=== PATIENT | female | born 1940 | race Caucasian/White ===

== ENCOUNTER 2017-10-22 15:15 | Inpatient (IN) | payer MEDICARE, OTHER, SELFPAY ==
[2017-10-22] VITALS (7 sets, daily range): BP systolic 108–181; BP diastolic 63–85; PULSE 78–101; RESP 16–22; TEMP 36.7–36.9; O2SAT 94–96; BMI 31.8
--- NOTE | 2017-10-22 15:32 | RAD_ITS ---
STUDY: X-RAY CHEST REASON FOR EXAM: Female, 76 years old. Chemotherapy patient with shortness of breath, worse today. TECHNIQUE: Frontal and lateral views of the chest. COMPARISON: August 29, 2017 FINDINGS: A right internal jugular catheter is stable with the tip projected into the upper SVC. There is stable hyperexpansion. There is no demonstrated pleural abnormality. Normal size heart. Normal mediastinum and stanley. Normal visualized pulmonary arteries. Normal visualized aortic arch and descending thoracic aorta. Normal visualized thoracic spine. Normal visualized ribs, clavicles, and shoulders. There is no demonstrated abnormality of the visualized soft tissue structures of the upper abdomen. RAD/Chest PA and Lateral IMPRESSION: Stable appearance of the chest with no new or acute pathology Electronically Signed: Hugh Palmer MD at 16:07 EST , Service support ,
--- NOTE | 2017-10-22 16:00 | EKG12_ITS ---
Test Reason : WEAKNESS Blood Pressure : / mmHG Vent. Rate : 087 BPM Atrial Rate : 087 BPM P-R Int : 164 ms QRS Dur : 082 ms QT Int : 370 ms P-R-T Axes : 000 058 063 degrees QTc Int : 445 ms Normal sinus rhythm Normal ECG Confirmed by SRAVANTHI TORIBIO, ROWDY ([id number]), associate editor ELIN TORIBIO ([id number]) on 10/24/2017 10:52:29 AM Referred By: HEATHER Confirmed By:ROWDY FISHMAN MD
--- NOTE | 2017-10-22 16:14 | ED.DCSUM_ITS ---
- ER Visit Summary Date of Service: 10/22/17 Chief Complaint: Generalized weakness History of Present Illness: The patient is a 76 F currently undergoing treatment for ovarian cancer with metastasis who presents for generalized weakness since yesterday. Patient states that she began feeling malaise and fatigue last night, and this morning felt so weak she could hardly get out of bed. Her last chemotherapy treatment was Monday, and she is receiving carboplatin and Taxol. Patient denies fever, abdominal pain, nausea, vomiting, diarrhea or urinary symptoms. She does have some dyspnea on exertion. She has chronic sinus congestion with postnasal drainage and sore throat, and states it feels mildly worse today. Patient states 2 weeks ago after chemo she needed IV fluids because of dehydration and weakness. Medical history includes chronic kidney disease, atrial flutter, ovarian cancer , status post colectomy with colostomy Physical Examination: Vital signs: afebrile, normotensive, tachycardia, no hypoxia on room air General: well nourished, well developed, in no distress, appears like she does not feel well Skin: warm, dry, pallor HEENT: normocephalic and atraumatic; PERRL, EOMI, dry mucous membranes, no oral lesions noted Cardiovascular: Tachycardic rate and regular rhythm without murmurs, no peripheral edema, 2+ pulses all distal extremities Respiratory: No increased work of breathing, lungs are clear to auscultation bilaterally, no rales, rhonchi or wheezing Abdominal: Abdomen is soft, nontender with normoactive bowel sounds, no guarding or rebound, no masses, colostomy MSK: Moves all extremities, no deformities, no calf tenderness, swelling or palpable cords Neuro: Awake and alert, oriented ?4. No facial droop, sensation and motor function intact and symmetric Test Results: Abnormal Lab Results 10/22/17 10/22/17 10/22/17 16:10 16:10 16:10 WBC 2.6 L RBC 3.88 L Hgb 10.3 L Hct 32.3 L MCV 83.2 MCH 26.5 L MCHC 31.9 L RDW Not Reportable RDW Differential Not Reportable Plt Count 258 MPV 9.3 Immature Gran % (Auto) 0.400 Neut % (Auto) 63.2 Lymph % (Auto) 31.1 [place] % (Auto) 3.4 Eos % (Auto) 1.5 Baso % (Auto) 0.4 Absolute Neuts (auto) 1.7 L Absolute Lymphs (auto) 0.82 L Total Counted Not Reportable Anisocytosis 1+ PT 13.3 INR 1.1 APTT 33.2 Sodium Potassium Chloride Carbon Dioxide Anion Gap BUN Creatinine Estim Creat Clear Calc Est GFR (MDRD) Af Amer Est GFR (MDRD) Non-Af BUN/Creatinine Ratio Glucose Lactic Acid 1.0 Calcium Total Bilirubin AST ALT Alkaline Phosphatase Troponin I Total Protein Albumin Globulin Albumin/Globulin Ratio Urine Color Urine Clarity Urine pH Ur Specific [place] Urine Protein Urine Glucose (UA) Urine Ketones Urine Occult Blood Urine Nitrite Urine Bilirubin Urine Urobilinogen Ur Leukocyte Esterase Urine RBC Urine WBC Ur Squamous Epith Cells Ur Renal Epithelial Cell Urine Bacteria Urine Mucus 10/22/17 10/22/17 16:10 17:50 WBC RBC Hgb Hct MCV MCH MCHC RDW RDW Differential Plt Count MPV Immature Gran % (Auto) Neut % (Auto) Lymph % (Auto) [place] % (Auto) Eos % (Auto) Baso % (Auto) Absolute Neuts (auto) Absolute Lymphs (auto) Total Counted Anisocytosis PT INR APTT Sodium 134 L Potassium 3.7 Chloride 99 Carbon Dioxide 25.0 Anion Gap 10 BUN 26 H Creatinine 0.97 Estim Creat Clear Calc 43.70 Est GFR (MDRD) Af Amer 72 Est GFR (MDRD) Non-Af 59 L BUN/Creatinine Ratio 26.8 H Glucose 126 H Lactic Acid Calcium 8.6 Total Bilirubin 0.70 AST 29 ALT 24 Alkaline Phosphatase 60 Troponin I < 0.02 Total Protein 7.3 Albumin 3.4 Globulin 3.9 Albumin/Globulin Ratio 0.9 Urine Color Yellow Urine Clarity Clear Urine pH 6.0 Ur Specific [place] 1.010 Urine Protein 100 H Urine Glucose (UA) Normal Urine Ketones Negative Urine Occult Blood 50 H Urine Nitrite Negative Urine Bilirubin Negative Urine Urobilinogen Normal Ur Leukocyte Esterase 100 H Urine RBC 0 SEEN Urine WBC 0-5 SEEN Ur Squamous Epith Cells 0-5 SEEN Ur Renal Epithelial Cell 0-5 SEEN Urine Bacteria 0 SEEN Urine Mucus 0 SEEN Emergency Department Course and Treatment: Patient was given IV hydration and felt better after receiving some fluids. Workup for possible infection showed low white count but not leukopenia. Urine was negative for infection. Chest x- ray showed no pneumonia. No significant derangements other than mild dehydration on labs. Patient had stated her shortness of breath was no longer present when she walked to the bathroom after the initial hydration. However she stated it returned after she walked to the bathroom the second time. Because of the mild shortness of breath and the cancer history, a CTA of the chest was performed to evaluate for possible pulmonary emboli, and it showed bilateral PEs. Patient was started on lovenox. Patient was discussed with Dr. Oliveira and admitted for further workup and management of her generalized weakness and bilateral pulmonary emboli. Treatment Plan: [] Disposition: [] Impression: Generalized weakness, dehydration, bilateral pulmonary emboli This note was generated with [employer] dictation software. It may contain incorrect words, spelling, and punctuation that were not noted in review of the chart prior to signing ED Disposition - Plan for ED Patient: Chief Complaint: Weakness
[2017-10-22 16:28] LABS: Absolute Lymphocyte Count 0.82 X10^3/ul (0.83-4.51); Absolute Neutrophil Count 1.7 X10^3/uL (2.0-7.7); Basophil# 0.01 X10^3/uL; Basophil% 0.4 % (0-1); Eosinophil# 0.04 X10^3/uL; Eosinophils% 1.5 % (0-5); Hematocrit 32.3 % (37-47); Hemoglobin 10.3 g/dl (12.0-15.0); Lymphocyte # 0.82 X10^3/ul (4.0); Lymphocyte % 31.1 % (19-41); Mean Corp Hgb Conc 31.9 g/gl (32-36); Mean Corpuscular Hgb 26.5 pg (27.0-32.0); Mean Corpuscular Volume 83.2 fL (81-99); Mean Platelet Vol. 9.3 fl (6.2-12.0); Monocyte# 0.09 X10^3/uL; Monocyte% 3.4 % (0-10); Neutrophil # 1.67 X10^3/uL (2.7-7.7); Neutrophil % 63.2 % (47-70); Platelet Count 258 K/mm3 (150-450); Red Blood Count 3.88 M/mm3 (4.2-5.4); White Blood Count 2.6 K/mm3 (4.4-11.0)
[2017-10-22 16:30] LABS: International Normalized Ratio 1.1; Prothrombin Time (Protime)PT. 13.3 SECONDS (11.7-14.9)
[2017-10-22 16:31] LABS: POSITIVE DIFFERENTIAL NO; Partial Thromboplast Time 33.2 Seconds (24.1-36.2)
[2017-10-22 16:32] LABS: Differential Indicated SCAN CRITERIA MET; POSITIVE COUNT NO; POSITIVE MORPHOLOGY YES
[2017-10-22 16:51] LABS: ALB/GLOB Ratio 0.9 RATIO (0.9-2.4); AST(SGOT) 29 U/L (15-37); Alanine Aminotransfer ALT/SGPT 24 U/L (13-56); Albumin, Serum 3.4 g/dL (3.2-5.0); Alkaline Phosphatase 60 U/L (45-117); Anion Gap 10 (5-15); BUN 26 mg/dL (7-18); BUN/Creat Ratio 26.8 RATIO (10-20); Calcium,Total 8.6 mg/dL (8.5-10.1); Chloride 99 mmol/L (98-107); Creatinine, Serum 0.97 mg/dL (0.55-1.02); EST Glomerular Filtration Rate 59 mL/min (>60); Est Glom Filt Rate - Afr Amer 72 mL/min (>60); Globulin 3.9 g/dL (2.2-4.2); Glucose 126 mg/dL (70-110); Potassium 3.7 mmol/L (3.5-5.1); Protein, Total 7.3 g/dL (6.4-8.2); Sodium Level 134 mmol/L (136-145)
[2017-10-22] MEDS: 0.9% Normal Saline 1,000 ML 50 ML IV (17:04)
[2017-10-22 17:31] LABS: Anisocytosis 1+
[2017-10-22 17:54] LABS: Bacteria 0 SEEN /hpf (None Seen); Mucous, Urine 0 SEEN /hpf (<or=2+); Red Blood Cells-Urine 0 SEEN /hpf (0-5)
[2017-10-22 17:56] LABS: Color, Urine Yellow (Yellow); Glucose, Dipstick Normal (Normal); Ketone-Dipstick Negative (Negative); Leukocyte Esterase-Dipstick 100 /ul (Negative); Nitrite-Dipstick Negative (Negative); Occult Blood-Urine 50 /ul (Negative); Protein-Dipstick 100 mg/dl (Negative); Urine Bilirubin Dipstick Negative (Negative); Urine Clarity Clear (Clear); Urine Urobilinogen Normal (Normal)
[2017-10-22 18:01] LABS: Renal Epithelial Cells 0-5 SEEN /hpf (0-5); Squamous Epithelial Cells - UA 0-5 SEEN /hpf (5-10); White Blood Cells 0-5 SEEN /hpf (0-5)
[2017-10-22] MEDS: 0.9% Normal Saline 1,000 ML 999 ML IV (19:00)
--- NOTE | 2017-10-22 20:45 | CT_ITS ---
STUDY: CTA CHEST REASON FOR EXAM: Female, 76 years old. Chemotherapy patient. Shortness of breath. RADIATION DOSAGE (If Supplied By Facility): CTDIvol = ( 11.03 ) mGy, DLP = ( 409.25 ) mGycm TECHNIQUE: The examination was performed with the intravenous administration of 75ML ml of Isovue 370 contrast material. Post-processing of the angiographic images was performed, with multiplanar reformation and 3D reconstruction. Individualized dose optimization techniques were used for this CT. COMPARISON: None. FINDINGS: There are filling defects noted within segmental pulmonary arteries extending into all the lobes of each lung consistent with bilateral pulmonary emboli. There are peripheral calcifications of the thoracic aorta. There is no demonstrated aortic dissection. There are calcifications of the coronary arteries. Normal mediastinum. Normal hilar regions. Normal visualized trachea and bronchi. There is minimal right lower lobe atelectasis.. There is a Mediport within the anterior right chest wall. There are degenerative changes of thoracic spine. Within the spinous process of T3 there is a oblique lucency at may be secondary to an old injury this may be congenital in nature. Normal visualized upper abdomen. CT/CTA Chest W/WO Contrast IMPRESSION: Bilateral pulmonary emboli. Minimal right lower lobe atelectasis. Atherosclerosis. Electronically Signed: Sonia Cortez MD at 22:05 EST Tel , Service support ,
[2017-10-22] MEDS: Carvedilol 12.5 MG Tablet PO (21:45)
[2017-10-22] MEDS: Lisinopril 20 MG Tablet PO (21:45)
[2017-10-22] MEDS: Enoxaparin 100 MG/ML Syringe 90 MG SC (22:55)
--- NOTE | 2017-10-22 23:13 | PCM.HP.STD ---
Problem List (1) Pulmonary embolism, bilateral Status: Acute (2) Diarrhea Status: Acute Qualifiers: Diarrhea type: unspecified type Qualified Code(s): R19.7 - Diarrhea, unspecified (3) Drug induced neutropenia Status: Acute (4) Educational circumstance Status: Acute (5) Hypomagnesemia Status: Acute (6) Ovarian epithelial cancer Status: Chronic Qualifiers: Laterality: unspecified laterality Qualified Code(s): C56.9 - Malignant neoplasm of unspecified ovary History of Present Illness Date of Admission: 10/22/17 Chief Complaint: Bilateral pulmonary embolism The patient is a 76 year old female w/ h/o ovarian cancer, HTN, and drug induced neutropenia admitted bilateral PE. She has been SOB since yesterday. Nothing made it better or worse. She has no cough. SOB is constant. She also has been feeling weak since receiving carboplatin and taxol on Monday. Fatigue was so severe that she had a hard time getting out of bed. Her physician advised her to go to the ED for further workup. Past Medical History Past Medical History (Chronic Problems): Chronic Problems (Last Reviewed 09/27/17 @ 09:58 by Joaquina Richardson) Ovarian epithelial cancer (Chronic) Allergies Penicillins Allergy (Severe, Verified 10/22/17 15:18) Hives Sulfa (Sulfonamide Antibiotics) Adverse Reaction (Severe, Verified 10/22/17 15:18) Nausea/Vom/Diarrhea Home Medications: Ambulatory Orders Medication Instructions Recorded Carvedilol [Coreg] 12.5 mg PO BID 06/17/17 Enalapril Maleate [Vasotec] 20 mg PO BID 06/17/17 Ketorolac Tromethamine [Acular LS] 1 drp EACH EYE DAILY 06/17/17 Levothyroxine [Synthroid] 75 mcg PO DAILY 06/17/17 Omeprazole/Sodium Bicarbonate 20 each PO DAILY 08/28/17 [Zegerid Otc 20-1,100 mg Cap] Chlorpheniramine Maleate 4 mg PO DAILY 09/06/17 [Aller-Chlor] Smoking Status: Never smoker - *Family History Maternal Family History: Family History (Last Reviewed 09/27/17 @ 09:58 by Joaquina Richardson) Mother Colon cancer Heart disease Hypertension Father Kidney disease Review of Systems Constitutional: Reports: Malaise, Weakness. Denies: Chills, Fever, Weight Change HEENT: Denies: Head Aches, Sinus Congestion, Sinus Drainage Cardiovascular: Denies: Chest Pain, Palpitations Respiratory: Reports: Shortness of Breath, Shortness of breath at rest. Denies: Cough, Sputum production Gastrointestinal: Denies: Abdominal Pain, Nausea, Vomiting Genitourinary: Denies: Dysuria Musculoskeletal: Denies: Joint Pain, Joint Tenderness Skin: Denies: Rash, Wounds Neurological: Denies: Numbness, Tingling, Focal weakness Psychiatric: Denies: Anxiety, Depression, Homicidal Ideations, Suicidal Ideations Hematologic/ Lymphatic: Denies: Easy Bruising, Easy Bleeding VTE Information - Inpt Only VTE Present on Admission: No VTE Mechan Device Prophylaxis: SCD's VTE Pharm Prophylaxis ordered?: Yes Patient Problems: Active and Suspected Problems (Last Reviewed 09/27/17 @ 09:58 by Joaquina Richardson) Pulmonary embolism, bilateral (Acute) - Physical Exam General: Alert, Oriented x3, Cooperative HEENT: Atraumatic, PERRLA, EOMI, Normocephalic Neck: Supple, No JVD, Negative Carotid Bruits Lungs: Clear to auscultation, Normal air movement Cardiovascular: Regular rate, No murmurs Abdomen: Bowel Sounds Present, Soft, Non Tender Extremities: No edema, Capillary Refill Less than 3 Seconds Skin: No rashes, No breakdown Musculoskeletal: No Tenderness to Palpation of Joints or Extremities Neurological: Cranial nerves II-XII grossly intact Psych/Mental Status: Normal Affect, Appropriate Vital Signs Temp Pulse Resp BP Pulse Ox 98.0 F 82 18 128/63 H 94 10/22/17 20:33 10/22/17 22:58 10/22/17 22:58 10/22/17 22:58 10/22/17 22:58 Oxygen Delivery Method Room Air Weight: 86.727 kg Body Mass Index (BMI) 31.8 Laboratory Tests Past 24 Hrs 10/22/17 10/22/17 10/22/17 16:10 16:10 16:10 WBC 2.6 L RBC 3.88 L Hgb 10.3 L Hct 32.3 L MCV 83.2 MCH 26.5 L MCHC 31.9 L RDW Not Reportable RDW Differential Not Reportable Plt Count 258 MPV 9.3 Immature Gran % (Auto) 0.400 Neut % (Auto) 63.2 Lymph % (Auto) 31.1 [place] % (Auto) 3.4 Eos % (Auto) 1.5 Baso % (Auto) 0.4 Absolute Neuts (auto) 1.7 L Absolute Lymphs (auto) 0.82 L Total Counted Not Reportable Anisocytosis 1+ PT 13.3 INR 1.1 APTT 33.2 Sodium Potassium Chloride Carbon Dioxide Anion Gap BUN Creatinine Estim Creat Clear Calc Est GFR (MDRD) Af Amer Est GFR (MDRD) Non-Af BUN/Creatinine Ratio Glucose Lactic Acid 1.0 Calcium Total Bilirubin AST ALT Alkaline Phosphatase Troponin I Total Protein Albumin Globulin Albumin/Globulin Ratio Urine Color Urine Clarity Urine pH Ur Specific [place] Urine Protein Urine Glucose (UA) Urine Ketones Urine Occult Blood Urine Nitrite Urine Bilirubin Urine Urobilinogen Ur Leukocyte Esterase Urine RBC Urine WBC Ur Squamous Epith Cells Ur Renal Epithelial Cell Urine Bacteria Urine Mucus 10/22/17 10/22/17 16:10 17:50 WBC RBC Hgb Hct MCV MCH MCHC RDW RDW Differential Plt Count MPV Immature Gran % (Auto) Neut % (Auto) Lymph % (Auto) [place] % (Auto) Eos % (Auto) Baso % (Auto) Absolute Neuts (auto) Absolute Lymphs (auto) Total Counted Anisocytosis PT INR APTT Sodium 134 L Potassium 3.7 Chloride 99 Carbon Dioxide 25.0 Anion Gap 10 BUN 26 H Creatinine 0.97 Estim Creat Clear Calc 43.70 Est GFR (MDRD) Af Amer 72 Est GFR (MDRD) Non-Af 59 L BUN/Creatinine Ratio 26.8 H Glucose 126 H Lactic Acid Calcium 8.6 Total Bilirubin 0.70 AST 29 ALT 24 Alkaline Phosphatase 60 Troponin I < 0.02 Total Protein 7.3 Albumin 3.4 Globulin 3.9 Albumin/Globulin Ratio 0.9 Urine Color Yellow Urine Clarity Clear Urine pH 6.0 Ur Specific [place] 1.010 Urine Protein 100 H Urine Glucose (UA) Normal Urine Ketones Negative Urine Occult Blood 50 H Urine Nitrite Negative Urine Bilirubin Negative Urine Urobilinogen Normal Ur Leukocyte Esterase 100 H Urine RBC 0 SEEN Urine WBC 0-5 SEEN Ur Squamous Epith Cells 0-5 SEEN Ur Renal Epithelial Cell 0-5 SEEN Urine Bacteria 0 SEEN Urine Mucus 0 SEEN Assessment/Plan Active and Suspected Problems (Last Reviewed 09/27/17 @ 09:58 by Joaquina Richardson) Pulmonary embolism, bilateral (Acute) 76 year old female w/ h/o ovarian cancer, HTN, and drug induced neutropenia admitted bilateral PE. 1) Bilateral PE: CT disclosed filling defects within segmental pulmonary arteries extending into all the lobes of each lung consistent with bilateral pulmonary emboli. C/w lovenox BID dosing. Most likely secondary to ovarian cancer. Will get ECHO to evaluate for heart strain. 2) Drug induced pancytopenia: Most likely secondary to carboplatin and taxol. Monitor. 3) Ovarian cancer s/p carboplatin and taxol. Hydration. No e/o kidney injury for carboplatin. Monitor. 4) Chronic issues: HTN: Resume home meds.
[2017-10-23] VITALS (17 sets, daily range): BP systolic 111–183; BP diastolic 55–75; PULSE 64–89; RESP 15–20; TEMP 36.4–36.9; O2SAT 87–98; BMI 30.8
[2017-10-23] MEDS: 0.9% Normal Saline 1,000 ML 100 ML IV (01:07)
[2017-10-23] MEDS: 0.9% NaCl Peripheral Flush Adult/Peds IV (04:58)
[2017-10-23 05:38] LABS: Anion Gap 10 (5-15); BUN 22 mg/dL (7-18); BUN/Creat Ratio 25.9 RATIO (10-20); Calcium,Total 8.6 mg/dL (8.5-10.1); Chloride 104 mmol/L (98-107); Creatinine, Serum 0.85 mg/dL (0.55-1.02); EST Glomerular Filtration Rate 69 mL/min (>60); Est Glom Filt Rate - Afr Amer 83 mL/min (>60); Estimated Creatinine Clearance 49.87 ml/min; Glucose 114 mg/dL (70-110); Potassium 3.9 mmol/L (3.5-5.1); Sodium Level 138 mmol/L (136-145)
--- NOTE | 2017-10-23 05:55 | VDLE_ITS ---
Reason For Study: PULM EMB RIGHT LEFT GSV is normal. GSV is normal. CFV is compressible, spontaneous, phasic, CFV is compressible, spontaneous, phasic, competent and demonstrates normal competent, and demonstrates normal augmentation. augmentation. FV is compressible, spontaneous, phasic, FV is compressible, spontaneous, phasic, competent and demonstrates normal competent and demonstrates normal augmentation. augmentation. POP V is compressible, spontaneous, phasic, Left POP V, T/P Trunk, PTV and PeroV are competent and demonstrates normal dilated and noncompressible. augmentation. DVT at Pop V space appears loosely attached. T/P Trunk is compressible. PTV is compressible. RT PerV is compressible. Procedure Exam performed portable in patient room. A preliminary report was called and/or faxed to [facility]. Interpretation Summary Acute deep vein thrombosis is noted in the left popliteal vein. Acute deep vein thrombosis is noted in the left tibio-peroneal trunk. Acute deep vein thrombosis is noted in the left posterior tibial vein. Acute deep vein thrombosis is noted in the left peroneal vein. The left common femoral vein and femoral vein are patent, compressible, and competent. Deep veins of the right lower extremity are patent and compressible segmentally. There is no evidence of right lower extremity deep vein thrombosis. Valvular competence appears intact within the proximal deep venous system on the right . The greater saphenous veins appear bilaterally patent and compressible segmentally. Ordering Physician: Arben Oliveira Referring Physician: NEEMA ESTEBAN Performed By: Michelle Galvan, SYLVAIN, RVT
--- NOTE | 2017-10-23 05:55 | ECHOD_ITS ---
Reason For Study: Chest Pain Procedure This was a 2D Doppler, Color Flow transthoracic echocardiogram. Exam performed portable in patient room. Left Ventricle Normal LV size. Left ventricular systolic function is normal. The estimated ejection fraction is 60 %. No regional wall motion abnormalities noted. Right Ventricle Normal RV size. Normal systolic function. Mitral Valve There is mild mitral annular calcification. Trivial mitral valve insufficiency. Tricuspid Valve Normal tricuspid valve. Mild (1+) tricuspid valve insufficiency. Pulmonary artery systolic pressure is 42 mmHg. Aortic Valve Normal aortic valve. Trisinus/trileaflet aortic valve. Pulmonic Valve Normal pulmonic valve. Great Vessels Normal aortic root. The pulmonary artery is normal size. Normal inferior vena cava. Pericardium/Pleural No pericardial effusion. MMode/2D Measurements & Calculations LVIDd: 4.4 cm IVSd: 1.1 cm Ao root diam: 2.5 cm LVIDs: 3.1 cm LVPWd: 1.1 cm LA dimension: 3.6 cm RVDd: 3.1 cm FS: 30.2 % LAV(MOD-bp): 35.7 ml LA A4 area: 14.8 cm2 RA A4 area: 11.9 cm2 LAV(MOD-bp) Indexed: 18.6 ml/m2 LAV(MOD-sp2): 37.2 ml LAV(MOD-sp4): 32.5 ml Doppler Measurements & Calculations MV E max bhaskar: 59.3 cm/sec Lat Peak E' Bhaskar: 7.6 cm/sec Med Peak E' Bhaskar: 3.7 cm/sec MV A max bhaskar: 92.5 cm/sec E/E' lat: 7.8 E/E' med: 15.8 MV E/A: 0.64 Ao V2 max: 165.5 cm/sec LV V1 max: 108.6 cm/sec PA V2 max: 118.2 cm/sec Ao max P.0 mmHg LV V1 max P.7 mmHg Ao V2 mean: 116.4 cm/sec Ao mean P.9 mmHg Ao V2 VTI: 40.3 cm TR max bhaskar: 304.9 cm/sec TR max P.2 mmHg Interpretation Summary Normal LV size. Left ventricular systolic function is normal. The estimated ejection fraction is 60 %. Mild (1+) tricuspid valve insufficiency. There is mild mitral annular calcification. Compared to prior study, there is no significant change. Ordering Physician: Arben Oliveira Referring Physician: MD [facility] Performed By: Cortney Angeles RDCS, RVT
[2017-10-23 06:14] LABS: Hematocrit 29.4 % (37-47); Hemoglobin 9.7 g/dl (12.0-15.0); Mean Corpuscular Hgb 27.7 pg (27.0-32.0); Mean Platelet Vol. 9.8 fl (6.2-12.0); Platelet Count 234 K/mm3 (150-450); White Blood Count 2.8 K/mm3 (4.4-11.0)
[2017-10-23 06:28] LABS: Scan Indicated on CBC? Y/N YES- FLAGS NOTED
[2017-10-23 06:53] LABS: Differential Comment SCANNED
[2017-10-23] MEDS: Enoxaparin 100 MG/ML Syringe 90 MG SC ×2 (09:11→21:20)
[2017-10-23] MEDS: Pantoprazole Sodium 20 MG Tablet PO (09:14)
[2017-10-23] MEDS: Carvedilol 12.5 MG Tablet PO ×2 (09:15→21:20)
--- NOTE | 2017-10-23 10:21 | CASEMGMT ---
See LUIS ARSHAD Assessment Link. DC PLAN: return home. Friend is able to drive her home and to pharmacy to picker operator medications. -will need Lovenox on dc. Spoke with pt re: this and she does not want to give herself injections. discussed dx of PE and importance of this medication. Pt understands but is very hesitant. Questions answered, reassurance given. LUIS ARSHAD updated nurse. -Lovenox will need to be e-scripted to pt's pharmacy if copay information is needed. Mounika WILKES RN ACM
[2017-10-23] MEDS: Lisinopril 20 MG Tablet PO ×2 (10:52→21:20)
--- NOTE | 2017-10-23 12:06 | PCM.PROGNOTE ---
Patient Problems: Active and Suspected Problems (Last Reviewed 09/27/17 @ 09:58 by Joaquina Richardson) Pulmonary embolism, bilateral (Acute) Subjective: Pt came in complaining of weakness and SOB that started last night. She was found to have bilateral pulmonary emboli - no hx of clots. She has ovarian cancer being treated with chemo by Dr. Keyes. Last dose chemo 5 days ago. Currently only SOB with exertion. Denies leg pain. - Physical Exam General: Alert, Oriented x3, Cooperative HEENT: Atraumatic, PERRLA, EOMI, Normocephalic Neck: Supple, No JVD, Negative Carotid Bruits Lungs: Clear to auscultation, Normal air movement Cardiovascular: Regular rate, No murmurs Abdomen: Bowel Sounds Present, Soft, Non Tender Extremities: No edema, Capillary Refill Less than 3 Seconds, - - negative kathie and ilya signs. Skin: No rashes, No breakdown Musculoskeletal: No Tenderness to Palpation of Joints or Extremities Neurological: Cranial nerves II-XII grossly intact Psych/Mental Status: Normal Affect, Appropriate Vital Signs Temp Pulse Resp BP Pulse Ox 98.4 F 71 18 148/75 H 97 10/23/17 09:00 10/23/17 09:00 10/23/17 09:00 10/23/17 09:00 10/23/17 09:00 Oxygen Delivery Method Room Air Weight: 85.3 kg Body Mass Index (BMI) 30.8 Intake and Output for Last 24 Hours 10/21/17 10/22/17 10/23/17 23:59 23:59 23:59 Intake Total 555 / 555 Output Total 150 / 150 Balance 405 / 405 Laboratory Tests Past 24 Hrs 10/23/17 10/23/17 10/23/17 01:00 04:55 04:55 WBC 2.8 L RBC 3.50 L Hgb 9.7 L Hct 29.4 L MCV 84.0 MCH 27.7 MCHC 33.0 RDW Not Reportable RDW Differential Not Reportable Plt Count 234 MPV 9.8 Differential Comment SCANNED Sodium 138 Potassium 3.9 Chloride 104 Carbon Dioxide 24.0 Anion Gap 10 BUN 22 H Creatinine 0.85 Estim Creat Clear Calc 49.87 Est GFR (MDRD) Af Amer 83 Est GFR (MDRD) Non-Af 69 BUN/Creatinine Ratio 25.9 H Glucose 114 H Calcium 8.6 Troponin I 0.03 0.03 Assessment/Plan Active and Suspected Problems (Last Reviewed 09/27/17 @ 09:58 by Joaquina Richardson) Pulmonary embolism, bilateral (Acute) 1. Bilateral PEs and DVT - on therapeutic lovenox. + CTA chest and doppler of LE. Likely 2/[address] ovarian cancer[address] Will consult Dr. Keyes. Echo pending. No CP, SOB at rest. Has exertional dyspnea. Currently no O2 requirement. Negative troponins. 2. Weakness/Debility - PTOT 3. ovarian cancer - mgmt per Dr. Keyes. Last chemo 5 days ago. reportedly on carboplatin and taxol. 4. Pancytopenia - actually platelet count is good. WBC/Abs neutos low, hgb small decrease. Will follow. 5. HTN - restarting home meds. 6. Hypothyroidism - continue synthroid. DVT ppx: therapeutic lovenox DC planning: PTOT This patient was seen by Aram Eduardo PA-C under the supervision of Doctor Singh.
--- NOTE | 2017-10-23 15:28 | CASEMGMT ---
Addendum entered by Kurtis Stoner 10/23/17 16:31: Pt's [facility] pharmacy ID: [id number]. Exemption form has not been faxed yet. Original Note: Lovenox medication cost is $606.92 for 30 day supply. No prior authorization is required per pharmacy. Dr. Singh is aware. Pt does not want to take, is speaking with physician re: this. Physician would like to have CM speak with insurance to see if appeal could be made. Call to [facility] management. . Spoke with Lilian, quality control representative who will fax Exception Form for physician to fill out. Pt updated. Mounika ORDONEZN RN ACM
--- NOTE | 2017-10-23 15:45 | ONC.CON.INP2 ---
(1) Pulmonary embolism, bilateral Status: Acute (2) Ovarian epithelial cancer Status: Chronic Qualifiers: Laterality: unspecified laterality Qualified Code(s): C56.9 - Malignant neoplasm of unspecified ovary Consult Referring Physician: Hospitalist service Consult Results: Pulmonary embolism. Malignancy hypercoagulability Subjective Date of Service:: 10/23/17 Chief Complaint: Dyspnea History of Present Illness: Patient is a 76-year-old female newly diagnosed metastatic ovarian cancer status post debulking surgery in July 2017 unknown dose dense Carbo [place] Taxol since August 2017 under the care of Dr. Keyes. Patient presented to the emergency room with increasing dyspnea and weakness. No chest pain no hemoptysis and unaware of any lower extremities edema. CTA revealed multiple bilateral pulmonary emboli Power of Carpenter Packing: No Living Will: No Health History: Cancer History: [] Past Medical History: [] Past Surgical History: [] Family History: [] Social History: [] Allergies/Adverse Reactions: Allergy/AdvReac Type Severity Reaction Status Date / Time Penicillins Allergy Severe Hives Verified 10/22/17 15:18 Sulfa (Sulfonamide AdvReac Severe Nausea/Vom/ Verified 10/22/17 15:18 Antibiotics) Diarrhea Home Medications Medication Instructions Recorded Carvedilol [Coreg] 12.5 mg PO BID 06/17/17 Enalapril Maleate [Vasotec] 20 mg PO BID 06/17/17 Ketorolac Tromethamine [Acular LS] 1 drp EACH EYE DAILY 06/17/17 Levothyroxine [Synthroid] 75 mcg PO DAILY 06/17/17 Omeprazole/Sodium Bicarbonate 20 each PO DAILY 08/28/17 [Zegerid Otc 20-1,100 mg Cap] Chlorpheniramine Maleate 4 mg PO DAILY 09/06/17 [Aller-Chlor] Enoxaparin Sodium [Lovenox] 90 mg SQ Q12H #60 syringe 10/23/17 Review of Systems Constitutional:: Reports: Weakness, Fatigue. Denies: Fever, Sweats, Weight loss, Appetite change, Chills Cardiovascular:: Reports: Dyspnea on exertion, Shortness of breath. Denies: Chest pain, Palpitations, Orthopnea, PND Respiratory: Reports: Shortness of Breath. Denies: Cough, Hemoptysis, Wheezing Gastrointestinal:: Reports: - - Has a colostomy. Denies: Abdominal pain, Nausea, Vomiting, Diarrhea, Constipation, Hematochezia Genitourinary: Denies: Dysuria, Hematuria, 15, Flank pain Musculoskeletal:: Denies: Back pain, Myalgia, Arthralgia Skin: Denies: Rash, Skin Changes, Wounds Neurological:: Denies: Headache, Dizziness, Visual changes, Tinnitus, Hearing loss Psychiatric: Denies: Anxiety, Depression, Homicidal Ideations, Suicidal Ideations Vital Signs Height 5 ft 5.5 in Weight: 85.3 kg Weight in Pounds 188.1 lbs Pulse Ox 98 Temperature 97.7 F Pulse Rate 67 Respiratory Rate 18 Blood Pressure 145/61 Blood Pressure Position Semi-Fowlers - Physical Exam General: Alert, Oriented x3, No apparent distress, - - Obese ECOG 2 HEENT: Atraumatic, PERRLA, EOMI, Normocephalic Oropharynx:: Dry mucosa Neck:: Supple, Trachea midline, - - Port okay. Negative for: JVD, bilateral Cardiac:: Regular rate, Regular rhythm, Normal S1, Normal S2. Negative for: Murmur Lungs: Clear to auscultation, Excusion symmetrical. Negative for: Rhonchi, Wheezes Abdomen:: Soft, Non-tender, Non-distended, - - Colostomy. Negative for: Hepatosplenomegaly Extremities:: Negative for: Cyanosis, Edema Neurological: Neuro grossly intact Skin:: Negative for: Lesions, Rash, Petechiae, Ecchymosis Psychiatric:: Appropriate affect, Euthymic Lymphatics:: Negative for: Cervical lymphadenopathy, Supraclavicular lymphadenopathy, Axillary lymphadenopathy Laboratory Data: Laboratory Tests 10/23/17 10/23/17 10/23/17 Range/Units 04:55 04:55 01:00 WBC 2.8 L (4.4-11.0) K/mm3 RBC 3.50 L (4.2-5.4) M/mm3 Hgb 9.7 L (12.0-15.0) g/dl Hct 29.4 L (37-47) % MCV 84.0 (81-99) fL MCH 27.7 (27.0-32.0) pg MCHC 33.0 (32-36) g/gl RDW Not Reportable RDW Differential Not Reportable Plt Count 234 (150-450) K/mm3 MPV 9.8 (6.2-12.0) fl Differential Comment SCANNED Sodium 138 (136-145) mmol/L Potassium 3.9 (3.5-5.1) mmol/L Chloride 104 (98-107) mmol/L Carbon Dioxide 24.0 (21.0-32.0) mmol/L Anion Gap 10 (5-15) BUN 22 H (7-18) mg/dL Creatinine 0.85 (0.55-1.02) mg/dL Estim Creat Clear Calc 49.87 ml/min Est GFR (MDRD) Af Amer 83 (>60) mL/min Est GFR (MDRD) Non-Af 69 (>60) mL/min BUN/Creatinine Ratio 25.9 H (10-20) RATIO Glucose 114 H (70-110) mg/dL Calcium 8.6 (8.5-10.1) mg/dL Troponin I 0.03 0.03 (<0.06) ng/mL Diagnostic Data: Diagnostic Data Chest X-Ray 10/22/17 15:32 IMPRESSION: Stable appearance of the chest with no new or acute pathology Electronically Signed: Hugh Palmer MD at 16:07 EST , Service support , Chest CTA 10/22/17 20:45 IMPRESSION: Bilateral pulmonary emboli. Minimal right lower lobe atelectasis. Atherosclerosis. Electronically Signed: Sonia Cortez MD at 22:05 EST Tel , Service support , Assessment and Plan 76-year-old female was newly diagnosed metastatic ovarian cancer status post debulking surgery July 2017 unknown dose dense carboplatin Taxol since August 2017. Patient presents with acute bilateral pulmonary embolism secondary to malignancy induced hypercoagulability. Recommendation: Long-term systemic anticoagulation. Agent of choice is low molecular weight heparin (Lovenox) for at least the first 3 months of diagnosis due to less recurrence rate compared to Coumadin. The new oral anticoagulants have not been adequately studied in the setting of malignancy induced hypercoagulability. I shared this information with the patient who is reluctant to be on an injectable anticoagulant and prefers an oral agent. Her choice and cost has to be both included in decision making. If Coumadin ends up being the agent chosen (she is familiar with from past use for an episode of atrial fibrillation )a target INR of 2-3 is advised. Risks and benefit (prevention of recurrent pulmonary embolism) discussed with patient. Her upcoming chemotherapy which was due this week is very likely to be delayed until next week when she is more stable from her acute pulmonary embolism. Medications: Prescriptions This Visit Medication Instructions Recorded Enoxaparin Sodium [Lovenox] 90 mg SQ Q12H #60 syringe 10/23/17 Medications Added to Medication List This Visit Category Date Time Status Carvedilol [Coreg] Med 10/23/17 10:00 Active 12.5 mg PO BID Enoxaparin [Lovenox] Med 10/23/17 10:00 Active 90 mg SC Q12 Ensure Enlive Med 10/23/17 10:00 Active 120 ml PO 4X/DAY Levothyroxine [Synthroid] Med 10/24/17 06:00 Active 75 mcg PO DAILY@0600 Lisinopril [Zestril] Med 10/23/17 10:00 Active 20 mg PO BID Pantoprazole Sodium [Protonix] Med 10/23/17 10:00 Active 20 mg PO DAILY Primary Care Provider: Lito Brooks Referring Provider:
--- NOTE | 2017-10-23 15:59 | CON.PCM_ITS ---
(1) Pulmonary embolism, bilateral Status: Acute (2) Ovarian epithelial cancer Status: Chronic Qualifiers: Laterality: unspecified laterality Qualified Code(s): C56.9 - Malignant neoplasm of unspecified ovary Consult Referring Physician: Hospitalist service Consult Results: Pulmonary embolism. Malignancy hypercoagulability Subjective Date of Service:: 10/23/17 Chief Complaint: Dyspnea History of Present Illness: Patient is a 76-year-old female newly diagnosed metastatic ovarian cancer status post debulking surgery in July 2017 unknown dose dense Carbo [place] Taxol since August 2017 under the care of Dr. Keyes. Patient presented to the emergency room with increasing dyspnea and weakness. No chest pain no hemoptysis and unaware of any lower extremities edema. 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: No Living Will: No Health History: Cancer History: [] Past Medical History: [] Past Surgical History: [] Family History: [] Social History: [] Allergies/Adverse Reactions: Allergy/AdvReac Type Severity Reaction Status Date / Time Penicillins Allergy Severe Hives Verified 10/22/17 15:18 Sulfa (Sulfonamide AdvReac Severe Nausea/Vom/ Verified 10/22/17 15:18 Antibiotics) Diarrhea Home Medications Medication Instructions Recorded Carvedilol [Coreg] 12.5 mg PO BID 06/17/17 Enalapril Maleate [Vasotec] 20 mg PO BID 06/17/17 Ketorolac Tromethamine [Acular LS] 1 drp EACH EYE DAILY 06/17/17 Levothyroxine [Synthroid] 75 mcg PO DAILY 06/17/17 Omeprazole/Sodium Bicarbonate 20 each PO DAILY 08/28/17 [Zegerid Otc 20-1,100 mg Cap] Chlorpheniramine Maleate 4 mg PO DAILY 09/06/17 [Aller-Chlor] Enoxaparin Sodium [Lovenox] 90 mg SQ Q12H #60 syringe 10/23/17 Review of Systems Constitutional:: Reports: Weakness, Fatigue. Denies: Fever, Sweats, Weight loss , Appetite change, Chills Cardiovascular:: Reports: Dyspnea on exertion, Shortness of breath. Denies: Chest pain, Palpitations, Orthopnea, PND Respiratory: Reports: Shortness of Breath. Denies: Cough, Hemoptysis, Wheezing Gastrointestinal:: Reports: - - Has a colostomy. Denies: Abdominal pain, Nausea , Vomiting, Diarrhea, Constipation, Hematochezia Genitourinary: Denies: Dysuria, Hematuria, 15, Flank pain Musculoskeletal:: Denies: Back pain, Myalgia, Arthralgia Skin: Denies: Rash, Skin Changes, Wounds Neurological:: Denies: Headache, Dizziness, Visual changes, Tinnitus, Hearing loss Psychiatric: Denies: Anxiety, Depression, Homicidal Ideations, Suicidal Ideations Vital Signs Height 5 ft 5.5 in Weight: 85.3 kg Weight in Pounds 188.1 lbs Pulse Ox 98 Temperature 97.7 F Pulse Rate 67 Respiratory Rate 18 Blood Pressure 145/61 Blood Pressure Position Semi-Fowlers - Physical Exam General: Alert, Oriented x3, No apparent distress, - - Obese ECOG 2 HEENT: Atraumatic, PERRLA, EOMI, Normocephalic Oropharynx:: Dry mucosa Neck:: Supple, Trachea midline, - - Port okay. Negative for: JVD, bilateral Cardiac:: Regular rate, Regular rhythm, Normal S1, Normal S2. Negative for: Murmur Lungs: Clear to auscultation, Excusion symmetrical. Negative for: Rhonchi, Wheezes Abdomen:: Soft, Non-tender, Non-distended, - - Colostomy. Negative for: Hepatosplenomegaly Extremities:: Negative for: Cyanosis, Edema Neurological: Neuro grossly intact Skin:: Negative for: Lesions, Rash, Petechiae, Ecchymosis Psychiatric:: Appropriate affect, Euthymic Lymphatics:: Negative for: Cervical lymphadenopathy, Supraclavicular lymphadenopathy, Axillary lymphadenopathy Laboratory Data: Laboratory Tests 3 10/23/17 10/23/17 10/23/17 Range/Units 04:55 04:55 01:00 WBC 2.8 L (4.4-11.0) K/mm3 RBC 3.50 L (4.2-5.4) M/mm3 Hgb 9.7 L (12.0-15.0) g/dl Hct 29.4 L (37-47) % MCV 84.0 (81-99) fL MCH 27.7 (27.0-32.0) pg MCHC 33.0 (32-36) g/gl RDW Not Reportable RDW Differential Not Reportable Plt Count 234 (150-450) K/mm3 MPV 9.8 (6.2-12.0) fl Differential Comment SCANNED Sodium 138 (136-145) mmol/L Potassium 3.9 (3.5-5.1) mmol/L Chloride 104 (98-107) mmol/L Carbon Dioxide 24.0 (21.0-32.0) mmol/L Anion Gap 10 (5-15) BUN 22 H (7-18) mg/dL Creatinine 0.85 (0.55-1.02) mg/dL Estim Creat Clear Calc 49.87 ml/min Est GFR (MDRD) Af Amer 83 (>60) mL/min Est GFR (MDRD) Non-Af 69 (>60) mL/min BUN/Creatinine Ratio 25.9 H (10-20) RATIO Glucose 114 H (70-110) mg/dL Calcium 8.6 (8.5-10.1) mg/dL Troponin I 0.03 0.03 (<0.06) ng/mL Diagnostic Data: Diagnostic Data Chest X-Ray 10/22/17 15:32 IMPRESSION: Stable appearance of the chest with no new or acute pathology Electronically Signed: Hugh Palmer MD at 16:07 EST , Service support , Chest CTA 10/22/17 20:45 IMPRESSION: Bilateral pulmonary emboli. Minimal right lower lobe atelectasis. Atherosclerosis. Electronically Signed: Sonia Cortez MD at 22:05 EST Tel , Service support , Assessment and Plan 76-year-old female was newly diagnosed metastatic ovarian cancer status post debulking surgery July 2017 unknown dose dense carboplatin Taxol since August 2017. Patient presents with acute bilateral pulmonary embolism secondary to malignancy induced hypercoagulability. Recommendation: Long-term systemic anticoagulation. Agent of choice is low molecular weight heparin (Lovenox) for at least the first 3 months of diagnosis due to less recurrence rate compared to Coumadin. The new oral anticoagulants have not been adequately studied in the setting of malignancy induced hypercoagulability. I shared this information with the patient who is reluctant to be on an injectable anticoagulant and prefers an oral agent. Her choice and cost has to be both included in decision making. If Coumadin ends up being the agent chosen (she is familiar with from past use for an episode of atrial fibrillation )a target INR of 2-3 is advised. Risks and benefit (prevention of recurrent pulmonary embolism) discussed with patient. Her upcoming chemotherapy which was due this week is very likely to be delayed until next week when she is more stable from her acute pulmonary embolism. Medications: Prescriptions This Visit Medication Instructions Recorded Enoxaparin Sodium [Lovenox] 90 mg SQ Q12H #60 syringe 10/23/17 Medications Added to Medication List This Visit Category Date Time Status Carvedilol [Coreg] Med 10/23/17 10:00 Active 12.5 mg PO BID Enoxaparin [Lovenox] Med 10/23/17 10:00 Active 90 mg SC Q12 Ensure Enlive Med 10/23/17 10:00 Active 120 ml PO 4X/DAY Levothyroxine [Synthroid] Med 10/24/17 06:00 Active 75 mcg PO DAILY@0600 Lisinopril [Zestril] Med 10/23/17 10:00 Active 20 mg PO BID Pantoprazole Sodium [Protonix] Med 10/23/17 10:00 Active 20 mg PO DAILY Primary Care Provider: Lito Brooks Referring Provider:
[2017-10-23] MEDS: 0.9% Normal Saline 1,000 ML 50 ML IV (18:09)
[2017-10-24] VITALS (8 sets, daily range): BP systolic 142–155; BP diastolic 63–71; PULSE 70–79; RESP 16; TEMP 36.4–36.7; O2SAT 95–98
[2017-10-24] MEDS: Levothyroxine 75 MCG Tablet PO (05:45)
[2017-10-24] MEDS: 0.9% NaCl Peripheral Flush Adult/Peds IV ×2 (05:45→17:13)
[2017-10-24 05:52] LABS: Absolute Lymphocyte Count 0.53 X10^3/ul (0.83-4.51); Absolute Neutrophil Count 1.1 X10^3/uL (2.0-7.7); Basophil# 0.01 X10^3/uL; Basophil% 0.6 % (0-1); Eosinophil# 0.05 X10^3/uL; Eosinophils% 2.9 % (0-5); Hematocrit 26.9 % (37-47); Hemoglobin 8.6 g/dl (12.0-15.0); Lymphocyte # 0.53 X10^3/ul (4.0); Mean Corpuscular Hgb 26.8 pg (27.0-32.0); Mean Corpuscular Volume 83.8 fL (81-99); Monocyte# 0.04 X10^3/uL; Monocyte% 2.3 % (0-10); Neutrophil # 1.07 X10^3/uL (2.7-7.7); Neutrophil % 62.6 % (47-70); Platelet Count 163 K/mm3 (150-450); Red Blood Count 3.21 M/mm3 (4.2-5.4); White Blood Count 1.7 K/mm3 (4.4-11.0)
[2017-10-24 05:56] LABS: Differential Indicated SCAN CRITERIA MET; POSITIVE COUNT NO; POSITIVE DIFFERENTIAL YES; POSITIVE MORPHOLOGY YES
[2017-10-24 06:40] LABS: Anisocytosis 2+; Differential Comment SCAN; Hypochromasia 1+; Polychromasia 1+
[2017-10-24 06:41] LABS: Microcytosis 1+; Platelet Morphology LARGE
[2017-10-24 06:42] LABS: Platelet Estimate ADEQUATE (ADEQ)
--- NOTE | 2017-10-24 09:00 | CASEMGMT ---
Addendum entered by Jazmin Arenas 10/24/17 16:47: Per Nikolay PHILLIPS, Dr. Chakraborty would like pt to have Lovenox 130mg daily instead of Lovenox 90mg bid. New script e-scribed to [facility] at this time. Call placed to [facility] and they state that co-pay is still $10 but then have none in stock and neither does [facility]. Call placed to [facility] at this time and they state that they have approx. 10 in stock at this time. Pt update on all at this time, voices understanding and gives ok to have script sent to [facility] at this time. Call back to [facility] and updated and Jazmin states she will [facility]. Pt states no further concerns/needs at this time. Pt thanks this RN PAVITHRA for all assistance at this time. Advised pt to follow instructions for taking lovenox, voices understanding at this time. SStaten LUIS ARSHAD Original Note: No medication exemption form has been faxed. Call to [facility] management at this time and transferred to prior auth at this time. Spoke with Jazmin regarding case and pt need to be placed on lovenox at this time. Per Jazmin, Lovenox is a Tier 4 drug for pt. Per Jazmin, a tier exception can be completed via the phone at this time and tier exception was granted at this time after conference call with physician. Call placed to Jeanne at [facility] at this time and she states that co-pay is now $10 per month for pt d/t exception being granted. Per [facility], they do not have any lovenox in stock at this time and would not have anymore until after 1500 tomorrow. Jeanne states that [facility] does have 8 lovenox in stock at this time and will have the rest to fill order after 1500 10/25, but pt can fill this months order there and she will transfer script at this time. Pt updated on all at this time and voices understanding. Pt states she will have the 2nd month script then returned to [facility] as it is closer for her. Pt inquires about whether syringes will come with 90mg dose, advised pt that order was written for 100mg/ml. Pt states did waste dose on her own this am and was able to administer subq injection on own. Pt interested in new walker as her is 'antique' and not stable for pt. Script for new walker faxed to [facility] per pt request at this time. Camille at [facility] aware and walker delivered to pt. Jovany SMITH CM
[2017-10-24] MEDS: Carvedilol 12.5 MG Tablet PO (09:41)
[2017-10-24] MEDS: Enoxaparin 100 MG/ML Syringe 90 MG SC (09:41)
[2017-10-24] MEDS: Lisinopril 20 MG Tablet PO (09:41)
[2017-10-24] MEDS: Pantoprazole Sodium 20 MG Tablet PO (09:41)
--- NOTE | 2017-10-24 10:48 | NURSING ---
Pt stood up to wipe herself down by the sink with a bath pack and stated that she felt dizzy and had to sit back down. Pt rested for a couple minutes and stood back up to get to the sink. Had to sit down once more while getting dressed again. Pt. is now laying back in bed and resting.
[2017-10-24] MEDS: 0.9% Normal Saline 1,000 ML 50 ML IV (14:10)
--- NOTE | 2017-10-24 15:52 | PCM.DC ---
- Discharge Diagnoses Current Active Problems: Current Active and Chronic Problems (Last Updated 10/23/17 @ 15:44 by Jeff Yuen MD) Pulmonary embolism, bilateral (Acute) Pulmonary embolism (Acute) You will use the following diet at home:: No restrictions Your food should be the consistency of: Regular Your liquids should be the consistency of: Regular/Thin Discharge Activity: Return to Normal Activity Allergies/Adverse Reactions: Allergies Penicillins Allergy (Severe, Verified 10/22/17 15:18) Hives Sulfa (Sulfonamide Antibiotics) Adverse Reaction (Severe, Verified 10/22/17 15:18) Nausea/Vom/Diarrhea Medications to take at Discharge Carvedilol [Coreg] 12.5 mg PO BID 06/17/17 Enalapril Maleate [Vasotec] 20 mg PO BID 06/17/17 Ketorolac Tromethamine [Acular LS] 1 drp EACH EYE DAILY 06/17/17 Levothyroxine [Synthroid] 75 mcg PO DAILY 06/17/17 Omeprazole/Sodium Bicarbonate [Zegerid Otc 20-1,100 mg Cap] 20 each PO DAILY 08/28/17 Chlorpheniramine Maleate [Aller-Chlor] 4 mg PO DAILY 09/06/17 Enoxaparin Sodium [Lovenox] 130 mg SQ DAILY #30 ml 10/24/17 The following prescriptions were given: Enoxaparin Sodium [Lovenox] 130 mg SQ DAILY #30 ml Primary Care Physician: Lito Brooks MD [Primary Care Provider] - Please follow up with your Primary Care Physician in: 2 weeks Please Follow Up With: Miguel Keyes MD - keep current appointment When: tomorrow Proposed Discharge Date: 10/24/17
--- NOTE | 2017-10-24 15:54 | PCM.DC.SUM ---
Discharge Date and Diagnosis - Problem List Patient Problems: Active and Suspected Problems (Last Updated 10/23/17 @ 15:44 by Jeff Yuen MD) Pulmonary embolism, bilateral (Acute) Pulmonary embolism (Acute) Date of Admission: 10/22/17 Date of Discharge: 10/24/17 - Primary Discharge Diagnosis Active and Suspected Problems (Last Updated 10/23/17 @ 15:44 by Jeff Yuen MD) Malignancy associated Pulmonary embolism, bilateral Acute malignancy associated LE DVT Chemo induced neutropenia Ovarian cancer Weakness / Debility Pt does not have pancytopenia - platelet count is normal HTN Hypothyroidism - Secondary Discharge Diagnosis Chronic Problems (Last Updated 10/23/17 @ 15:44 by Jeff Yuen MD) Ovarian epithelial cancer (Chronic) Hospital Course and Treatment Imaging Results: RAD/Chest PA and Lateral IMPRESSION: Stable appearance of the chest with no new or acute pathology CT/CTA Chest W/WO Contrast IMPRESSION: Bilateral pulmonary emboli. Minimal right lower lobe atelectasis. Atherosclerosis. Echo: Interpretation Summary Normal LV size. Left ventricular systolic function is normal. The estimated ejection fraction is 60 %. Mild (1+) tricuspid valve insufficiency. There is mild mitral annular calcification. Compared to prior study, there is no significant change. Venous US: Acute deep vein thrombosis noted in the left popliteal vein, acute DVT noted in left tibioperoneal trunk, acute DVT noted left posterior tibial vein, acute DVT noted in the left peroneal vein, no evidence of right lower extremity DVT. [place]: oncology Operations: None Procedures: None Summary of Care Provided: Physical exam on day of discharge: General: Resting comfortably NAD Psych: A/Ox3 normal affect HEENT: PEARRLA AT NC Neck: Supple NT CV: RRR no m/t/r/g/h Resp: CTA Abd: [id number] Soft NT no guarding or rigidity Ext: DP2+= no edema, negative Bhanu/Homans sign Skin: W/D normal turgor Lymph/Heme: No active bleeding or adenopathy Neuro: CN2-12 intact Hospital course: The patient is a 76 year old F with a history of ovarian cancer who is being treated with chemotherapy per Dr. Keyes who presented to the emergency room after developing notable fatigue and shortness of breath the evening prior to presentation. She had a CTA of the chest which revealed bilateral PEs. She was admitted and started on therapeutic Lovenox. Notably she was also neutropenic. She did not have a fever, cough, or any signs of infectious etiology. Oncology was consulted. The patient still remained short of breath with exertion however with walking pulse ox she did not decrease her sats and did not qualify for oxygen. She was placed on outpatient Lovenox therapy at 1.5 mg/kg per day per oncology recommendation. Duplex ultrasound of the right lower extremity revealed extensive DVTs. She had no prior history of clots, so these were felt to be malignancy induced. She was discharged home in stable condition to follow-up with oncology tomorrow as she has a normal appointment for tomorrow already, she should follow-up with her PCP in 2 weeks as well. This patient was seen by Aram Eduardo PA-C under the supervision of Doctor Singh. [] Discharge Diet: No Restrictions Discharge Activity: Return to Normal Activity Home Medications: Medications to take at Discharge Carvedilol [Coreg] 12.5 mg PO BID 06/17/17 Enalapril Maleate [Vasotec] 20 mg PO BID 06/17/17 Ketorolac Tromethamine [Acular LS] 1 drp EACH EYE DAILY 06/17/17 Levothyroxine [Synthroid] 75 mcg PO DAILY 06/17/17 Omeprazole/Sodium Bicarbonate [Zegerid Otc 20-1,100 mg Cap] 20 each PO DAILY 08/28/17 Chlorpheniramine Maleate [Aller-Chlor] 4 mg PO DAILY 09/06/17 Enoxaparin Sodium [Lovenox] 130 mg SQ DAILY #30 ml 10/24/17 Following Prescrptions Were Given to Patient: Enoxaparin Sodium [Lovenox] 130 mg SQ DAILY #30 ml Primary Care Physician: Lito Brooks MD [Primary Care Provider] - Please follow up with your Primary Care Physician in: 2 weeks Please Follow Up With: Miguel Keyes MD - keep current appointment When: tomorrow Disposition: Home Minutes spent on discharge:: 35 Patient Condition:: Stable Meaningful Use Info Meaningful Use Diagnoses (Choose all that apply): VTE - VTE Anticoag overlap given w/in hospital stay or rx'd at al?: No Reason overlap not ordered, prescribed, or given for 5 days: Treatment Not Indicated
--- NOTE | 2017-10-24 16:02 | DS.PCM_ITS ---
Discharge Date and Diagnosis - Problem List Patient Problems: Active and Suspected Problems (Last Updated 10/23/17 @ 15:44 by Jeff Yuen MD) Pulmonary embolism, bilateral (Acute) Pulmonary embolism (Acute) Date of Admission: 10/22/17 Date of Discharge: 10/24/17 - Primary Discharge Diagnosis Active and Suspected Problems (Last Updated 10/23/17 @ 15:44 by Jeff Yuen MD) Malignancy associated Pulmonary embolism, bilateral Acute malignancy associated LE DVT Chemo induced neutropenia Ovarian cancer Weakness / Debility Pt does not have pancytopenia - platelet count is normal HTN Hypothyroidism - Secondary Discharge Diagnosis Chronic Problems (Last Updated 10/23/17 @ 15:44 by Jeff Yuen MD) Ovarian epithelial cancer (Chronic) Hospital Course and Treatment Imaging Results: RAD/Chest PA and Lateral IMPRESSION: Stable appearance of the chest with no new or acute pathology CT/CTA Chest W/WO Contrast IMPRESSION: Bilateral pulmonary emboli. Minimal right lower lobe atelectasis. Atherosclerosis. Echo: Interpretation Summary Normal LV size. Left ventricular systolic function is normal. The estimated ejection fraction is 60 %. Mild (1+) tricuspid valve insufficiency. There is mild mitral annular calcification. Compared to prior study, there is no significant change. Venous US: Acute deep vein thrombosis noted in the left popliteal vein, acute DVT noted in left tibioperoneal trunk, acute DVT noted left posterior tibial vein, acute DVT noted in the left peroneal vein, no evidence of right lower extremity DVT. [place]: oncology Operations: None Procedures: None Summary of Care Provided: Physical exam on day of discharge: General: Resting comfortably NAD Psych: A/Ox3 normal affect HEENT: PEARRLA AT NC Neck: Supple NT CV: RRR no m/t/r/g/h Resp: CTA Abd: [id number] Soft NT no guarding or rigidity Ext: DP2+= no edema, negative Bhanu/Homans sign Skin: W/D normal turgor Lymph/Heme: No active bleeding or adenopathy Neuro: CN2-12 intact Hospital course: The patient is a 76 year old F with a history of ovarian cancer who is being treated with chemotherapy per Dr. Keyes who presented to the emergency room after developing notable fatigue and shortness of breath the evening prior to presentation. She had a CTA of the chest which revealed bilateral PEs. She was admitted and started on therapeutic Lovenox. Notably she was also neutropenic. She did not have a fever, cough, or any signs of infectious etiology. Oncology was consulted. The patient still remained short of breath with exertion however with walking pulse ox she did not decrease her sats and did not qualify for oxygen. She was placed on outpatient Lovenox therapy at 1.5 mg/kg per day per oncology recommendation. Duplex ultrasound of the right lower extremity revealed extensive DVTs. She had no prior history of clots, so these were felt to be malignancy induced. She was discharged home in stable condition to follow-up with oncology tomorrow as she has a normal appointment for tomorrow already, she should follow-up with her PCP in 2 weeks as well. This patient was seen by Aram Eduardo PA-C under the supervision of Doctor Singh. [] Discharge Diet: No Restrictions Discharge Activity: Return to Normal Activity Home Medications: Medications to take at Discharge Carvedilol [Coreg] 12.5 mg PO BID 06/17/17 Enalapril Maleate [Vasotec] 20 mg PO BID 06/17/17 Ketorolac Tromethamine [Acular LS] 1 drp EACH EYE DAILY 06/17/17 Levothyroxine [Synthroid] 75 mcg PO DAILY 06/17/17 Omeprazole/Sodium Bicarbonate [Zegerid Otc 20-1,100 mg Cap] 20 each PO DAILY 01/09 Chlorpheniramine Maleate [Aller-Chlor] 4 mg PO DAILY 09/06/17 Enoxaparin Sodium [Lovenox] 130 mg SQ DAILY #30 ml 10/24/17 Following Prescrptions Were Given to Patient: Enoxaparin Sodium [Lovenox] 130 mg SQ DAILY #30 ml Primary Care Physician: Lito Brooks MD [Primary Care Provider] - Please follow up with your Primary Care Physician in: 2 weeks Please Follow Up With: Miguel Keyes MD - keep current appointment When: tomorrow Disposition: Home Minutes spent on discharge:: 35 Patient Condition:: Stable Meaningful Use Info Meaningful Use Diagnoses (Choose all that apply): VTE - VTE Anticoag overlap given w/in hospital stay or rx'd at sd?: No Reason overlap not ordered, prescribed, or given for 5 days: Treatment Not Indicated
[2017-10-24 16:47] LABS: Pathologist Review Reviewed
== END 2017-10-24 17:33 | disposition home or self-care (01) | DRG 176 ==
LOC: ED 16:42 → PCU 23:54
PROVIDERS: Physician Assistant; Admitting Provider Internal Medicine; Emergency Provider Emergency Medicine; Family Provider Family Medicine; PCP Family Medicine; Visit Provider Internal Medicine
DX: I26.99 Other pulmonary embolism without acute cor pulmonale (principal); C79.9 Secondary malignant neoplasm of unspecified site; C56.9 Malignant neoplasm of unspecified ovary; D70.1 Agranulocytosis secondary to cancer chemotherapy; E86.0 Dehydration; I10 Essential (primary) hypertension; E03.9 Hypothyroidism, unspecified; T45.1X5A Adverse effect of antineoplastic and immunosuppressive drugs, initial encounter; Z79.899 Other long term (current) drug therapy
CPT/HCPCS: 36591; 71046; 71275; 80048; 80053; 81001; 83605; 84484; 85025; 85027; 85610; 85730; 87040; 87086; 87088; 87149; 87493; 93005; 93306; 93970; 97802; 99285; J7030; J7050; Q9967; A4216

== ENCOUNTER 2017-11-09 12:56 | Emergency (ER) | payer MEDICARE, OTHER, SELFPAY ==
[2017-11-09 12:57] VITALS: BP 153/83; PULSE 71; RESP 16; TEMP 36.4; O2SAT 98; BMI 32.1
--- NOTE | 2017-11-09 13:38 | EKG12_ITS ---
Test Reason : SYNCOPAL Blood Pressure : / mmHG Vent. Rate : 069 BPM Atrial Rate : 069 BPM P-R Int : 176 ms QRS Dur : 084 ms QT Int : 402 ms P-R-T Axes : 000 042 054 degrees QTc Int : 430 ms Normal sinus rhythm vs. ectopic atrial rhythm Normal ECG Confirmed by SRAVANTHI TORIBIO, ASHOK ([id number]), rewrite editor ELIN TORIBIO ([id number]) on 11/13/2017 1:15:45 PM Referred By: Ashok Fishman Confirmed By:ASHOK FISHMAN MD
--- NOTE | 2017-11-09 13:43 | ED.DCSUM_ITS ---
- ER Visit Summary Date of Service: 11/09/17 Chief Complaint: Near syncope resolved History of Present Illness: The patient is a 76 F noticed with ovarian cancer in 2017. Had a hysterectomy. Currently is undergoing chemotherapy. Today in chemotherapy she had a transient episode of near syncope. She did not pass out. She denies any headache, chest pain, shortness of breath or abdominal pain. She denies any nausea, vomiting or diarrhea. She said it kind of felt like she was floating. She has had these episodes multiple times before. She is currently on Benadryl for seasonal allergies. Physical Examination: Well-appearing older female. Vital signs are stable afebrile. Pulse ox 90% on room air no signs of hypoxia. H EENT exam atraumatic. Pupils round reactive light. Neck nontender. Lungs clear to auscultation bilaterally. Heart rate rate and rhythm no murmur. Rate in the 70s. Abdomen is soft and nontender. Normal bowel sounds no peritoneal signs. She does have a port on her right chest wall. There is no redness or drainage. She is moving all 4 extremities. Calves are nontender. There is no edema. Neurologically she is awake and alert with no focal motor deficits. Test Results: CBC shows a white count of 3. H&H 8.7 and 27 which is her baseline chronic anemia. BMP normal. Normal gap of 8 and creatinine is 0.9. Orthostatic vital signs are normal. And her EKG was sinus rhythm rate is 69 with no acute abnormalities. Labs that were done were done from earlier today as an outpatient. Patient did not want labs redrawn. Emergency Department Course and Treatment: She was a near syncopal episode. Likely looks well. 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 She also currently has pulmonary emboli for which she is on Lovenox. She has had a history of prior atrial flutter. Treatment Plan: Repeat exam she is feeling well at 1600 and is comfortable being discharged to home. Disposition: dc Impression: Acute near syncope resolved of uncertain etiology History of ovarian CA with chemotherapy History of prior atrial flutter Recent diagnosis of pulmonary emboli on Lovenox This note was generated with [employer] software. It may contain incorrect words, spelling, and punctuation that were not noted in review of the chart prior to signing ED Disposition - Plan for ED Patient: Chief Complaint: Dizziness Referrals: Lito Brooks MD [Primary Care Provider] -
[2017-11-09 13:54] VITALS: BP 160/55; BP 162/77; BP 180/67; PULSE 68; PULSE 89
[2017-11-09 14:59] VITALS: BP 168/56; PULSE 73; RESP 18; O2SAT 97
[2017-11-09 16:08] VITALS: BP 148/71; PULSE 74; RESP 16; O2SAT 97
--- NOTE | 2017-11-09 16:09 | ED.DEP ---
ED Disposition - Plan for ED Patient: Disposition: Home or Assisted Living Chief Complaint: Dizziness Instructions: ED Near Syncope Unkn Referrals: Lito Brooks MD [Primary Care Provider] - As Needed
[2017-11-09 16:38] VITALS: BP 143/74; PULSE 71; RESP 16; O2SAT 97
== END 2017-11-09 16:40 | disposition home or self-care (01) ==
PROVIDERS: Emergency Provider Emergency Medicine; Family Provider Family Medicine; PCP Family Medicine
DX: R55 Syncope and collapse (principal); C56.9 Malignant neoplasm of unspecified ovary; Z90.710 Acquired absence of both cervix and uterus; J30.2 Other seasonal allergic rhinitis; I26.99 Other pulmonary embolism without acute cor pulmonale; I48.92 Unspecified atrial flutter; Z79.01 Long term (current) use of anticoagulants; E03.9 Hypothyroidism, unspecified; Z79.899 Other long term (current) drug therapy
CPT/HCPCS: 93005; A4216

== ENCOUNTER → 2018-02-23 10:13 | Outpatient (CLI) | payer MEDICARE, OTHER, SELFPAY ==
[2018-02-23 10:51] LABS: Absolute Neutrophil Count 2.1 X10^3/uL (2.0-7.7); Basophil# 0.01 X10^3/uL; Basophil% 0.3 % (0-1); Eosinophil# 0.08 X10^3/uL; Eosinophils% 2.3 % (0-5); Hematocrit 27.9 % (37-47); Hemoglobin 8.9 g/dl (12.0-15.0); Lymphocyte % 25.4 % (19-41); Mean Corp Hgb Conc 31.9 g/gl (32-36); Mean Corpuscular Hgb 34.4 pg (27.0-32.0); Mean Corpuscular Volume 107.7 fL (81-99); Mean Platelet Vol. 8.8 fl (6.2-12.0); Monocyte# 0.47 X10^3/uL; Monocyte% 13.2 % (0-10); Neutrophil # 2.08 X10^3/uL (2.7-7.7); Neutrophil % 58.5 % (47-70); Platelet Count 214 K/mm3 (150-450); RBC Distribution Width CV 17.4 % (11.6-14.6); RBC Distribution Width SD 68.2 fl (35.1-43.9); Red Blood Count 2.59 M/mm3 (4.2-5.4); White Blood Count 3.6 K/mm3 (4.4-11.0)
[2018-02-23 11:06] LABS: Differential Indicated SCAN CRITERIA MET; POSITIVE COUNT NO; POSITIVE DIFFERENTIAL NO; POSITIVE MORPHOLOGY YES
== END ==
PROVIDERS: Family Provider Internal Medicine; PCP Internal Medicine; Visit Provider Obstetrics & Gynecology Gynecologic Oncology
DX: C56.1 Malignant neoplasm of right ovary (principal); C56.2 Malignant neoplasm of left ovary
CPT/HCPCS: 36415; 85025

== ENCOUNTER 2018-03-13 14:39 | Emergency (ER) | payer MEDICARE, OTHER, SELFPAY ==
[2018-03-13 14:40] VITALS: BP 128/54; PULSE 68; RESP 16; TEMP 36.8; O2SAT 97; BMI 35.6
[2018-03-13 15:29] LABS: Absolute Lymphocyte Count 0.73 X10^3/ul (0.83-4.51); Basophil# 0.02 X10^3/uL; Basophil% 0.2 % (0-1); Eosinophil# 0.05 X10^3/uL; Eosinophils% 0.5 % (0-5); Hematocrit 33.7 % (37-47); Hemoglobin 10.7 g/dl (12.0-15.0); Lymphocyte # 0.73 X10^3/ul (4.0); Mean Corp Hgb Conc 31.8 g/gl (32-36); Mean Corpuscular Volume 97.7 fL (81-99); Mean Platelet Vol. 8.8 fl (6.2-12.0); Monocyte# 0.63 X10^3/uL; Neutrophil # 8.97 X10^3/uL (2.7-7.7); Neutrophil % 85.7 % (47-70); Platelet Count 269 K/mm3 (150-450); RBC Distribution Width CV 17.9 % (11.6-14.6); Red Blood Count 3.45 M/mm3 (4.2-5.4); White Blood Count 10.5 K/mm3 (4.4-11.0)
[2018-03-13 15:31] LABS: POSITIVE COUNT NO; POSITIVE DIFFERENTIAL NO; POSITIVE MORPHOLOGY NO
[2018-03-13] MEDS: 0.9% Normal Saline 1,000 ML 1000 ML IV (15:40)
[2018-03-13 15:41] LABS: Anion Gap 7 (5-15); BUN 19 mg/dL (7-18); BUN/Creat Ratio 18.6 RATIO (10-20); Calcium,Total 8.4 mg/dL (8.5-10.1); Chloride 101 mmol/L (98-107); Creatinine, Serum 1.02 mg/dL (0.55-1.02); EST Glomerular Filtration Rate 56 mL/min (>60); Est Glom Filt Rate - Afr Amer 67 mL/min (>60); Glucose 112 mg/dL (74-106); Potassium 3.7 mmol/L (3.5-5.1); Sodium Level 136 mmol/L (136-145)
--- NOTE | 2018-03-13 16:20 | ED.DCSUM_ITS ---
- ER Visit Summary Date of Service: 03/13/18 Chief Complaint: Diarrhea History of Present Illness: The patient is a 77 F status post reversal of colostomy February 27. Last chemotherapy January 27. She has history of ovarian cancer. She was operated on by Dr. Abdullahi who is a gynecologic oncologist at [facility]. She presents because of 8 loose watery stools since this morning. She does have history of C. difficile. She denies any blood or mucus in her stool. She denies fever but complains of chills. She denies any ocular , visual auditory symptoms. She denies a cardiovascular respiratory symptoms. She reports decreased urine output without complaint of dysuria or hematuria. She denies myalgias arthralgias. She denies rash. She has commended generalized weakness. Physical Examination: Patient appears pale. HEENT exam is marked for dry mucosa and pale conjunctivae. HEENT is otherwise unremarkable. Heart is regular without murmur, gallop or rub. Lungs are clear to auscultation. Incision sites are healing without erythema, warmth, induration or fluctuance. Abdomen is soft nontender with increased bowel sounds. There is no CVA tenderness noted. She is alert oriented with nonfocal neurologic exam. Test Results: White count is normal at 20.5 with 86 segs no bands 7 lymphs. H& H 10.7 and 33.7. Electrolyte panel is unremarkable. Creatinine slightly elevated at 1.02 and glucose is 112. GFR is normal. Emergency Department Course and Treatment: CBC, BMP were ordered. She received 1 L of normal saline wide open. Stool for C. difficile was ordered. Treatment Plan: Patient received 1 L of normal saline. She has urinated. She has been in the department for approximate 3 and half hours had no diarrhea. Therefore, will discharge to home. Disposition: Discharged home with appropriate home-going instructions Impression: 1. Diarrhea 2. Mild dehydration 3. History of ovarian cancer 4. 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 It may contain incorrect words, spelling, and punctuation that were not noted in review of the chart prior to signing ED Disposition - Plan for ED Patient: Disposition: Home or Assisted Living Chief Complaint: Diarrhea Instructions: ED Vomiting Diarrhea Nonspecific Ad Referrals: Lisa Combs MD [Primary Care Provider] - 3-5 Days if not improving
[2018-03-13 17:26] VITALS: BP 110/42; PULSE 68; RESP 16; O2SAT 99
[2018-03-13 18:36] VITALS: BP 130/57; PULSE 72; RESP 16; O2SAT 98
== END 2018-03-13 18:37 | disposition home or self-care (01) ==
PROVIDERS: Emergency Provider Emergency Medicine; Family Provider Internal Medicine; PCP Internal Medicine
DX: R19.7 Diarrhea, unspecified (principal); E86.0 Dehydration; C56.9 Malignant neoplasm of unspecified ovary; D63.0 Anemia in neoplastic disease; E66.9 Obesity, unspecified; Z68.35 Body mass index [BMI] 35.0-35.9, adult; Z79.01 Long term (current) use of anticoagulants; Z79.899 Other long term (current) drug therapy
CPT/HCPCS: 80048; 85025; 96360; 99284; J7030; A4216

== ENCOUNTER → 2018-06-20 11:47 | Outpatient (CLI) | payer MEDICARE, OTHER, SELFPAY ==
[2018-06-20 12:51] LABS: T4 Free Direct 0.96 ng/dL (0.76-1.46); Thyroid Stim Hormone (TSH) 2.15 uIU/mL (0.358-3.74)
== END ==
PROVIDERS: Family Provider Internal Medicine; PCP Internal Medicine; Visit Provider Internal Medicine
DX: E03.9 Hypothyroidism, unspecified (principal)
CPT/HCPCS: 36415; 84439; 84443

== ENCOUNTER 2019-04-30 08:51 | Inpatient (IN) | payer MEDICARE, OTHER, SELFPAY ==
[2019-04-10 13:18] VITALS: BMI 38.3
[2019-04-30] VITALS (19 sets, daily range): BP systolic 125–186; BP diastolic 55–90; PULSE 52–93; RESP 14–18; TEMP -17.7–36.5; O2SAT 94–100; BMI 39.4; BMI 38.2; BMI 38.3
--- NOTE | 2019-04-30 09:08 | CT_ITS ---
STUDY: CT ABDOMEN AND PELVIS WITH CONTRAST REASON FOR EXAM: Female, 78 years old. Abdominal pain. RADIATION DOSAGE (If Supplied By Facility): CTDIvol = ( 24.71 ) mGy, DLP = ( 1250.28 ) mGycm TECHNIQUE: Transaxial images were obtained from the dome of the diaphragm to the symphysis pubis without oral contrast. 100ML IV Isovue 300 was administered. Sagittal and coronal images were reconstructed. Individualized dose optimization techniques were used for this CT. COMPARISON: Comparison is made with prior study dated June 23, 2017. FINDINGS: The visualized lung bases are unremarkable. The visualized portions of the heart are within normal limits. Small amount of ascites in the abdomen and pelvis. Normal liver. Normal gallbladder and extrahepatic biliary system. Normal spleen. Normal pancreas. Normal bilateral adrenal glands. Normal right kidney. Normal left kidney. There is a small hiatal hernia. Dilated fluid-filled small bowel loops are seen in the lower abdomen and pelvis. There is evidence of a lower anterior abdominal wall hernia containing small bowel loops. The dilatation of the small bowel loops most likely secondary to incarceration. The neck of the hernia measures 6.7 cm. There is evidence of a congestion of the mesentery at the level of the dilated small bowel loops. Vascular compromise should be ruled out. An anastomotic line is seen in the rectosigmoid junction. There is non-visualization of the appendix. There is diffuse atherosclerotic calcification of the abdominal aorta, without a demonstrated aneurysm. Normal inferior vena cava. Normal retroperitoneum. Normal urinary bladder. There is absence of the uterus consistent with a prior hysterectomy. Large anterior ventral hernia containing nondistended colon. The neck of the hernia measures 7.9 cm. Normal osseous structures. CT/Abdomen/Pelvis W IV Cont ONLY IMPRESSION: There are dilated fluid-filled small bowel loops in the lower abdomen and pelvis with evidence of congestion of the surrounding peritoneum due to a low anterior abdominal/pelvic hernia. The neck of the hernia measures 6.7 cm. There is also evidence of a midline anterior abdominal hernia containing nondistended colon. Small amount of ascites is seen within the abdomen and pelvis. Electronically Signed: Aric Barrera, at 10:57 EDT , Service support ,
--- NOTE | 2019-04-30 09:09 | RAD_ITS ---
STUDY: X-RAY CHEST REASON FOR EXAM: Female, 78 years old. Weakness. TECHNIQUE: Single AP portable view of the chest. COMPARISON: Comparison is made with prior study dated October 22, 2017. FINDINGS: A right-sided portacatheter is seen with the tip in the proximal portion of the superior vena cava. EKG electrodes are seen. The lungs are clear and expanded. Scattered calcified granulomas. There is no demonstrated pleural abnormality. Normal size heart. Normal mediastinum and stanley. Normal visualized pulmonary arteries. There is atherosclerotic calcification of the aortic arch with tortuosity. There are diffuse degenerative changes of the visualized thoracic spine. Normal visualized ribs, clavicles, and shoulders. There is no demonstrated abnormality of the visualized soft tissue structures of the upper abdomen. RAD/Chest 1 View (Portable) IMPRESSION: No acute abnormality is seen. Electronically Signed: Aric Barrera, at 9:44 EDT , Service support ,
--- NOTE | 2019-04-30 09:10 | EKG12_ITS ---
Test Reason : WEAKNESS Blood Pressure : / mmHG Vent. Rate : 052 BPM Atrial Rate : 052 BPM P-R Int : 232 ms QRS Dur : 092 ms QT Int : 448 ms P-R-T Axes : 067 064 081 degrees QTc Int : 416 ms Sinus bradycardia with 1st degree A-V block Otherwise normal ECG Confirmed by LC TRUJILLO ([id number]), offline editor ELIN TORIBIO ([id number]) on 05/01/2019 3:10:37 PM Referred By: Lc Main Confirmed By:LC TRUJILLO
--- NOTE | 2019-04-30 09:10 | ED.VIS.GI ---
History of Present Illness Chief Complaint: Weakness Informant: Patient, Family, Paving Machine Operator - Abdominal Pain/Flank Pain Onset: Today - around 5 hrs Context: Sudden Onset - during sleep Quality: Aching - and bloating/pressure Location: Diffuse Current Severity: Mild Maximum Severity: Moderate Worsened by: Nothing Relieved by: Nothing - Nausea/Vomiting/Emesis GI Symptom: Nausea, Vomiting - x1 Quality: Nonbilious. Negative for: Blood streaks, Coffee ground, Hematemesis - Diarrhea/Melena/Hematochezia GI Symptom: Negative for: Diarrhea, Melena, Hematochezia Associated Symptoms: Negative for: Dysuria, Frequency, Hematuria, Urgency Narrative: Patient has had multiple abdominal surgeries in the past, no history of bowel obstruction. This morning she woke up with lots of abdominal pressure and vomited once, she is very malaised. She had a history of uterine cancer, hysterectomy and also partial bowel resection along with colostomy and later takedown. 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 (3) Pulmonary embolism, bilateral Status: Chronic (4) Arthritis Status: Chronic (5) Cardiomyopathy in disease classified elsewhere Status: Chronic (6) Essential hypertension Status: Chronic (7) History of ovarian cancer in adulthood Status: Chronic (8) Hypothyroidism Status: Chronic (9) Neuropathy Status: Chronic (10) Paroxysmal atrial fibrillation Status: Chronic (11) Ovarian epithelial cancer Status: Resolved (12) Thrombocytopenia Status: Resolved Past Medical History - Allergies and Home Meds Allergies/Adverse Reactions: Allergies Penicillins Allergy (Severe, Verified 04/30/19 12:48) Hives Sulfa (Sulfonamide Antibiotics) Adverse Reaction (Severe, Verified 04/30/19 12:48) Nausea/Vom/Diarrhea Surgical History: hysterectomy, - - Partial bowel resection. Colostomy and later takedown. Lives: Alone Smoking Status: Never smoker - Family History Maternal Family History: Family History (Last Reviewed 04/30/19 @ 12:55 by Katelyn Grey PA-C) Mother Colon cancer Heart disease Hypertension Father Kidney disease Myocardial infarction Brother Cancer Family History: Reports: No pertinent history Paternal Family History: Family History (Last Reviewed 04/30/19 @ 12:55 by Katelyn Grey PA-C) Mother Colon cancer Heart disease Hypertension Father Kidney disease Myocardial infarction Brother Cancer Family History: Reports: No pertinent history Review of Systems General: Reports: Malaise. Denies: Chills, Fever, Sweats Eyes: Denies: Visual changes - bilaterally, Diplopia ENT: Denies: Rhinorrhea, Sore throat Cardiovascular: Denies: Chest pain, Palpitations Respiratory: Denies: Dyspnea, Cough, Sputum, Dyspnea on exertion Gastrointestinal: Reports: Abdominal pain, Nausea, Vomiting. Denies: Diarrhea, Constipation, Melena, Hematochezia Genitourinary: Denies: Dysuria, Hematuria, Frequency Musculoskeletal: Denies: Back pain, Swelling, Extremity Pain Skin: Denies: Rash, Wounds Neurological: Denies: Headache, Weakness, Numbness Physical Exam Vital Signs/Narrative: Vital Signs Temp Pulse Resp BP Pulse Ox 04/30/19 08:53 0 F L 54 L 14 186/55 H 98 Inital Vital Signs reviewed: Yes General: Well nourished, Well developed, No Acute Distress - But ill-appearing. Able to converse. Head: Normocephalic, Atraumatic Eyes: Perrl, EOMI ENT: Moist mucous membranes, No rhinorrhea Neck: Supple, Nontender, No lymphadenopathy, No JVD Cardiovascular: Regular rate, Regular rhythm, No murmurs. Negative for: Tachycardia Respiratory: No distress, CTA bilaterally, Chest nontender Abdomen: Soft, Tender - Diffusely with some voluntary guarding in the right lower quadrant, Hypoactive bowel sounds, Ventral hernia - tender, Hernia irreducible. Negative for: Nondistended - +distended, Rebound tenderness, Pulsatile mass Back: Nontender, Normal Inspection Extremities: Nontender, No edema. Negative for: Calf Tenderness Skin: Normal color, No rash, Diaphoresis - Facial, No Trauma Neurological: Alert, Oriented x3, Cranial nerves II-XII grossly intact, Normal Strength, Normal Sensation Psychological: Normal affect, Normal Mood Diagnostic/Tx/Re-eval Impressions Abdomen/Pelvis CT 04/30/19 09:08 IMPRESSION: There are dilated fluid-filled small bowel loops in the lower abdomen and pelvis with evidence of congestion of the surrounding peritoneum due to a low anterior abdominal/pelvic hernia. The neck of the hernia measures 6.7 cm. There is also evidence of a midline anterior abdominal hernia containing nondistended colon. Small amount of ascites is seen within the abdomen and pelvis. Electronically Signed: Aric Barrera, at 10:57 EDT , Service support , Chest X-Ray 04/30/19 09:09 IMPRESSION: No acute abnormality is seen. Electronically Signed: Aric Barrera, at 9:44 EDT , Service support , 04/30/19 09:08 Abdomen/Pelvis W IV Cont ONLY [CT] Stat 04/30/19 09:09 Chest 1 View (Portable) [RAD] Stat Laboratory Results 04/30/19 04/30/19 04/30/19 09:21 09:34 09:34 WBC 12.7 H RBC 5.52 H Hgb 13.9 Hct 43.6 MCV 79.0 L MCH 25.2 L MCHC 31.9 L RDW Std Deviation 45.4 H RDW Coeff of Jose 16.0 H Plt Count 255 MPV 9.6 Immature Gran % (Auto) 0.500 Neut % (Auto) 78.4 H Lymph % (Auto) 15.6 L [place] % (Auto) 4.3 Eos % (Auto) 0.9 Baso % (Auto) 0.3 Absolute Neuts (auto) 9.9 H Absolute Lymphs (auto) 1.97 Nucleated RBC % 0 Sodium 137 Potassium 4.3 Chloride 106 Carbon Dioxide 23.0 Anion Gap 8 BUN 31 H Creatinine 1.29 H Estim Creat Clear Calc 30.54 Est GFR (MDRD) Af Amer 51 L Est GFR (MDRD) Non-Af 42 L BUN/Creatinine Ratio 24.0 H Glucose 174 H Calcium 9.3 Total Bilirubin 0.60 AST 16 ALT 17 Alkaline Phosphatase 104 Troponin I < 0.015 Total Protein 7.5 Albumin 3.4 Globulin 4.1 Albumin/Globulin Ratio 0.8 L Lipase 113 Urine Color Urine Clarity Urine pH Ur Specific [place] Urine Protein Urine Glucose (UA) Urine Ketones Urine Occult Blood Urine Nitrite Urine Bilirubin Urine Urobilinogen Ur Leukocyte Esterase Urine RBC Urine WBC Ur Squamous Epith Cells Urine Bacteria Urine Mucus POC Glucose 176 H 04/30/19 09:34 WBC RBC Hgb Hct MCV MCH MCHC RDW Std Deviation RDW Coeff of Jose Plt Count MPV Immature Gran % (Auto) Neut % (Auto) Lymph % (Auto) [place] % (Auto) Eos % (Auto) Baso % (Auto) Absolute Neuts (auto) Absolute Lymphs (auto) Nucleated RBC % Sodium Potassium Chloride Carbon Dioxide Anion Gap BUN Creatinine Estim Creat Clear Calc Est GFR (MDRD) Af Amer Est GFR (MDRD) Non-Af BUN/Creatinine Ratio Glucose Calcium Total Bilirubin AST ALT Alkaline Phosphatase Troponin I Total Protein Albumin Globulin Albumin/Globulin Ratio Lipase Urine Color Yellow Urine Clarity Sl. Cloudy Urine pH 7.0 Ur Specific [place] 1.010 Urine Protein 100 H Urine Glucose (UA) Normal Urine Ketones 5 H Urine Occult Blood 50 H Urine Nitrite Negative Urine Bilirubin Negative Urine Urobilinogen Normal Ur Leukocyte Esterase Negative Urine RBC 0-5 SEEN Urine WBC 0 SEEN Ur Squamous Epith Cells 0 SEEN Urine Bacteria RARE Urine Mucus 0 SEEN POC Glucose - Rhythm Strip Rhythm Strip: Sinus Rhythm Rate: 55 Ectopy: None - EKG Initial EKG Interpretation: Sinus Rhythm, No Acute Injury Pattern - Sinus rhythm 52. First-degree AV block. Prior: Changed - First-degree AV block is new, prior [place] 176, otherwise EKG unchanged - Medical Decision Making Although patient stated her pain was initially was not severe, she states it is getting worse and requested medication, she was given morphine but it did not help. After CT she was in more pain we attempted to reduce the hernia but it did not have any helpful effect. She was given Dilaudid and I discussed with Dr. Main, who was on-call and is the patient's local surgeon. CT suggests an incarcerated hernia, which likely is causing the patient's symptoms. I read the report at approximately 1110, I did not receive a phone call from radiology. Surgery evaluated in ED and is taking to OR. Critical care time (excluding procedures): 30-74 minutes - 35 minutes, including multiple bedside evaluations for patient's symptoms and pain control, discussing with patient and family, consultants, and arranging admission ED Disposition - Plan for ED Patient: Disposition: Acute Care Hospital [facility] Diagnosis: Incarcerated ventral hernia
[2019-04-30] MEDS: 0.9% Normal Saline 1,000 ML 999 ML IV (09:30)
[2019-04-30] MEDS: Ondansetron 4 MG/2 ML Vial IV ×2 (09:30→17:23)
[2019-04-30 09:35] LABS: Bedside Glucose 176 mg/dL (70-110)
[2019-04-30 09:39] LABS: Mucous, Urine 0 SEEN /hpf (<or=2+); Squamous Epithelial Cells - UA 0 SEEN /hpf (5-10); White Blood Cells 0 SEEN /hpf (0-5)
[2019-04-30 09:40] LABS: Absolute Lymphocyte Count 1.97 X10^3/uL (0.83-4.51); Absolute Neutrophil Count 9.9 X10^3/uL (2.0-7.7); Basophil# 0.04 X10^3/uL; Basophil% 0.3 % (0-1); Color, Urine Yellow (Yellow); Eosinophil# 0.11 X10^3/uL; Eosinophils% 0.9 % (0-5); Glucose, Dipstick Normal (Normal); Hematocrit 43.6 % (37-47); Hemoglobin 13.9 g/dL (12.0-15.0); Ketone-Dipstick 5 mg/dl (Negative); Leukocyte Esterase-Dipstick Negative /ul (Negative); Lymphocyte # 1.97 X10^3/ul (4.0); Lymphocyte % 15.6 % (19-41); Mean Corp Hgb Conc 31.9 g/dL (32-36); Mean Corpuscular Hgb 25.2 pg (27.0-32.0); Mean Platelet Vol. 9.6 fl (6.2-12.0); Monocyte# 0.55 X10^3/uL; Monocyte% 4.3 % (0-10); NRBC Flagged by Analyzer 0 % (0-5); Neutrophil # 9.92 X10^3/uL (2.7-7.7); Neutrophil % 78.4 % (47-70); Nitrite-Dipstick Negative (Negative); Occult Blood-Urine 50 /ul (Negative); Platelet Count 255 K/mm3 (150-450); Protein-Dipstick 100 mg/dl (Negative); RBC Distribution Width SD 45.4 fl (35.1-43.9); Red Blood Count 5.52 M/mm3 (4.2-5.4); Urine Bilirubin Dipstick Negative (Negative); Urine Clarity Sl. Cloudy (Clear); Urine Urobilinogen Normal (Normal); White Blood Count 12.7 K/mm3 (4.4-11.0)
[2019-04-30 09:48] LABS: Bacteria RARE /hpf (None Seen); Red Blood Cells-Urine 0-5 SEEN /hpf (0-5)
[2019-04-30 10:01] LABS: ALB/GLOB Ratio 0.8 RATIO (0.9-2.4); AST(SGOT) 16 U/L (15-37); Alanine Aminotransfer ALT/SGPT 17 U/L (13-56); Albumin, Serum 3.4 g/dL (3.2-5.0); Alkaline Phosphatase 104 U/L (45-117); Anion Gap 8 (5-15); BUN 31 mg/dL (7-18); Calcium,Total 9.3 mg/dL (8.5-10.1); Chloride 106 mmol/L (98-107); Creatinine, Serum 1.29 mg/dL (0.55-1.02); EST Glomerular Filtration Rate 42 mL/min (>60); Est Glom Filt Rate - Afr Amer 51 mL/min (>60); Estimated Creatinine Clearance 30.54 ml/min; Globulin 4.1 g/dL (2.2-4.2); Glucose 174 mg/dL (74-106); Lipase 113 U/L (73-393); Potassium 4.3 mmol/L (3.5-5.1); Protein, Total 7.5 g/dL (6.4-8.2); Sodium Level 137 mmol/L (136-145)
[2019-04-30] MEDS: Morphine 4 MG/ML Syringe IV (10:17)
--- NOTE | 2019-04-30 11:00 | COL_PTH ---
PATIENT: JO MELGAR LOC: MS3 U#:[id number] AGE/SX: 78/F ROOM: MS305 RE04/30/[address]: Dr. Stefanie Eason MD : 1940 BED: 1 DIS: 05/03/2019 SPEC #: [id number] RECD: 04/30/19 15:04 STATUS: ADRIANA REAure #: [id number] JUNE: 04/30/19 11:[address]: Shay Main DEPT: SURGICAL PATHOLOGY RECD BY: Jose Luis Ortega ENTERED: 05/01/19 10:53 SP TYPE: COLON OTHR DR: MD Dr. Lisa Gardner MD Amanda Griffith, PA-C Tissues: Colon, NOS Procedures: Surgery Specimen Level V HEADER OPERATION: Resection small intestine PRE-OP DIAGNOSIS: Incarcerated ventral hernia POST-OP DIAGNOSIS: Ischemic bowel secondary to small bowel obstruction TISSUE SUBMITTED: Small bowel MICROSCOPIC DIAGNOSIS Small bowel, segmental resection: Segment of small bowel with transmural congestion, hemorrhage and ischemic changes. Resection margins appear unremarkable. One mesenteric lymph node with reactive changes. CALVIN:kayla 05/02/19 MICROSCOPIC DESCRIPTION Slides are reviewed. GROSS DESCRIPTION Received in fixative is one container labeled with the patient's name and designated small bowel. The specimen consists of a segment of small bowel with attached mesenteric tissue measuring 72 cm in length. Both resection margins are stapled. The serosal surface is markedly congested and dusky. 2.5 cm length of small bowel at one edge and 1 cm length segment of small bowel at other end appears unremarkable. The lumen contains hemorrhagic fluid mixed with blood clot. Almost entire length of the mucosa is congested and hemorrhagic with flattened villi except terminal 2 and 1 cm portion of the small bowel. No mass lesion is identified. Sections will be submitted after overnight fixation. / CALVIN:kayla 04/30/19 Sectioning of the mesenteric tissue reveal congested and hemorrhagic cut surfaces. No obvious lymph nodes are identified. Riveter Hand sections are submitted in six cassettes as follows: 1 - resection margin, 2 - normal appearing portion of small bowel, 3-5 - hemorrhagic and congested portion of the small bowel (4 & 5 also contain the hemorrhagic mesenteric tissue), 6 - contains normal appearing mesenteric tissue. / CALVIN:kayla 05/01/19 TC:5 CPT: 18694
--- NOTE | 2019-04-30 11:14 | NURSING ---
DR SUAREZ PAGED
[2019-04-30] MEDS: HYDROmorphone 1 MG/ML Syringe IV (11:33)
--- NOTE | 2019-04-30 11:33 | NURSING ---
118 MED SURG DANIELA INCARCERATED VENTRAL HERNIA
--- NOTE | 2019-04-30 12:21 | ED.RN ---
antbx and LR sent with patient to OR
--- NOTE | 2019-04-30 12:43 | PCM.HP.STD ---
Problem List (1) Incarcerated ventral hernia Status: Acute History of Present Illness Date of Admission: 04/30/19 Chief Complaint: Abdominal pain The patient is a 78 year old F who presents with 1 day history of abdominal pain. Patient notes at 0430 AM this morning she had abdominal pain. She attempted to have a bowel movement without success. Patient noted the abdominal pain increased. Patient noted continued intense pressure in her abdomen. She called the squad who brought her to the hospital. Patient noted she has nausea. She vomited once on the way to the hospital. She notes feeling weak. She notes her last normal bowel movement was yesterday. She denies recent change in bowel habits. She denies constipation, melena, BRBPR. Patient states she knew she had multiple hernias mid abdomen. Patient has had a previous right hemicolectomy in 2008 for a tubular adenoma with focal high-grade dysplasia by Dr. Main. This was complicated by a kink in the patient's bowel and she had to return to surgery. Patient also noted she had a CT a/p on 06/23/2017 showed complex adnexal mass with small pelvic effusion. CA125 was 134 on 07/25/2017 so she was referred to Dr. Zulema Abdullahi at [facility]. She underwent partial Hysterectomy, BSO, omentectomy, resection of multiple peritoneal and omental implants, partial sigmoid colectomy with Goodman's pouch and end colostomy on August 05, 2017. She notes 6 months later she had the colostomy reversed. Patient notes this is when she was told that she had multiple hernias. Patient has note been evaluated by a surgeon to have these hernias repaired. Patient also noted she has had a history of A flutter. Dr. Son is her chemical pathologist. She denies previous myocardial infarction and stroke. Patient notes previous history of pulmonary embolism due to chemotherapy. CT scan of the abdomen/pelvis demonstrated: There are dilated fluid-filled small bowel loops in the lower abdomen and pelvis with evidence of congestion of the surrounding peritoneum due to a low anterior abdominal/pelvic hernia. The neck of the hernia measures 6.7 cm. There is also evidence of a midline anterior abdominal hernia containing nondistended colon. Small amount of ascites is seen within the abdomen and pelvis. Past Medical History Past Medical History (Chronic Problems): Chronic Problems (Last Reviewed 04/30/19 @ 12:54 by Katelyn Grey PA-C) History of ovarian cancer in adulthood (Chronic) Paroxysmal atrial flutter (Chronic) Essential hypertension (Chronic) Neuropathy (Chronic) Bilateral edema of lower extremity (Chronic) Iron deficiency anemia, unspecified (Chronic) Cardiomyopathy in disease classified elsewhere (Chronic) Paroxysmal atrial fibrillation (Chronic) Hypothyroidism (Chronic) Lower extremity deep venous thrombosis (Chronic) Pulmonary embolism, bilateral (Chronic) Pulmonary embolism (Chronic) Arthritis (Chronic) Medical History: Medical History (Last Reviewed 04/30/19 @ 12:54 by Katelyn Grey PA-C) Paroxysmal atrial flutter (Chronic) I48.92 Essential hypertension (Chronic) I10 Iron deficiency anemia, unspecified (Chronic) D50.9 Intestinal malabsorption, unspecified (Acute) K90.9 Cardiomyopathy in disease classified elsewhere (Chronic) I43 Paroxysmal atrial fibrillation (Chronic) I48.0 Pulmonary embolism (Chronic) I26.99 Arthritis (Chronic) M19.90 Anemia D64.9 Chronic nephritic syndrome N03.9 Hemorrhoid K64.9 History of squamous cell carcinoma Z85.89 Osteoarthritis M19.90 Ovarian cancer C56.9 med port placement Cardiac murmur R01.1 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 GERD (gastroesophageal reflux disease) K21.9 History of colon cancer Z85.038 Hypothyroidism E03.9 Atrial flutter, chronic I48.92 CATARACT SURGERY 2017 HTN (hypertension) (Inactive) I10 Allergies Penicillins Allergy (Severe, Verified 04/10/19 13:18) Hives Sulfa (Sulfonamide Antibiotics) Adverse Reaction (Severe, Verified 04/10/19 13:18) Nausea/Vom/Diarrhea Home Medications: Ambulatory Orders Medication Instructions Recorded [place]-3 Fatty Acids/Fish Oil 1 ea PO TID 06/07/18 [[place] 3 1,000 mg Softgel] carvedilol 12.5 mg tablet 12.5 mg PO BID #180 tab 06/18/18 coenzyme Q10 10 mg capsule 10 mg PO ONCE 06/18/18 omeprazole 20 mg-sodium 1 cap PO DAILY cap 09/12/18 bicarbonate 1.1 gram capsule enalapril maleate 20 mg tablet 20 mg PO BID #180 tab 10/01/18 chlorpheniramine 4 mg tablet 4 mg PO DAILY PRN 10/08/18 aller-chor PO 01/07/19 fluticasone propionate 50 2 spray INTRANASAL DAILY 01/07/19 mcg/actuation nasal spray,suspension levothyroxine 75 mcg tablet 75 mcg PO DAILY #90 tab 04/08/19 pregabalin 50 mg capsule 50 mg PO QHS #30 cap 04/08/19 Surgical History: Surgical History (Last Reviewed 04/30/19 @ 12:55 by Katelyn Grey PA-C) History of bowel resection Z98.890, Z90.49 02/27/18 H/O: hysterectomy Z98.890, Z90.710 2017 Hx of appendectomy Z90.49 S/P cataract extraction Z98.49 S/P colectomy Z90.49 2008 S/P skin cancer resection Z98.890 Status post colon resection Z90.49 Surgical History: hysterectomy, - - Partial bowel resection. Colostomy and later takedown. Lives: Alone Smoking Status: Never smoker - *Family History Maternal Family History: Family History (Last Reviewed 04/30/19 @ 12:55 by Katelyn Grey PA-C) Mother Colon cancer Heart disease Hypertension Father Kidney disease Myocardial infarction Brother Cancer History Items: No pertinent history Paternal Family History: Family History (Last Reviewed 04/30/19 @ 12:55 by Katelyn Grey PA-C) Mother Colon cancer Heart disease Hypertension Father Kidney disease Myocardial infarction Brother Cancer History Items: No pertinent history Review of Systems Constitutional: Reports: Malaise, Weakness HEENT: Denies: Head Aches, Sinus Congestion, Sinus Drainage Cardiovascular: Denies: Chest Pain, Palpitations Respiratory: Denies: Cough, Shortness of breath at rest, Sputum production Gastrointestinal: Reports: Abdominal Pain, Nausea. Denies: Constipation, Diarrhea, Vomiting Genitourinary: Denies: Dysuria Musculoskeletal: Denies: Joint Pain, Joint Tenderness Skin: Denies: Rash, Wounds Neurological: Denies: Numbness, Tingling, Focal weakness Psychiatric: Denies: Anxiety, Depression, Homicidal Ideations, Suicidal Ideations Hematologic/ Lymphatic: Reports: Hx of blood clot. Denies: Easy Bruising, Easy Bleeding VTE Information - Inpt Only VTE Present on Admission: Yes VTE Mechan Device Prophylaxis: SCD's Patient Problems: Active and Suspected Problems (Last Reviewed 04/30/19 @ 12:54 by Katelyn Grey PA-C) Incarcerated ventral hernia (Acute) - Physical Exam General: Alert, Oriented x3, Cooperative HEENT: Atraumatic, PERRLA, EOMI, Normocephalic Neck: Supple, No JVD, Negative Carotid Bruits Lungs: Clear to auscultation, Normal air movement Cardiovascular: Regular rate, Murmur Abdomen: Hypoactive Bowel Sounds, Distended, Obese, Tender - Mid abdomen, Hernia - ventral incisional hernia, - - Nicely healed midline abdominal incision Extremities: No edema, Capillary Refill Less than 3 Seconds Skin: No rashes, No breakdown Musculoskeletal: No Tenderness to Palpation of Joints or Extremities Neurological: Neuro grossly intact Psych/Mental Status: Normal Affect, Appropriate Vital Signs Temp Pulse Resp BP Pulse Ox 97 F L 55 L 14 135/75 H 98 04/30/19 11:54 04/30/19 12:13 04/30/19 12:13 04/30/19 12:13 04/30/19 12:13 Oxygen Delivery Method Room Air Weight: 230 lb Body Mass Index (BMI) 39.4 Finger Stick Blood Glucose 176 Laboratory Tests Past 24 Hrs 04/30/19 04/30/19 04/30/19 09:34 09:34 09:34 WBC 12.7 H RBC 5.52 H Hgb 13.9 Hct 43.6 MCV 79.0 L MCH 25.2 L MCHC 31.9 L RDW Std Deviation 45.4 H RDW Coeff of Jose 16.0 H Plt Count 255 MPV 9.6 Immature Gran % (Auto) 0.500 Neut % (Auto) 78.4 H Lymph % (Auto) 15.6 L Taney % (Auto) 4.3 Eos % (Auto) 0.9 Baso % (Auto) 0.3 Absolute Neuts (auto) 9.9 H Absolute Lymphs (auto) 1.97 Nucleated RBC % 0 Sodium 137 Potassium 4.3 Chloride 106 Carbon Dioxide 23.0 Anion Gap 8 BUN 31 H Creatinine 1.29 H Estim Creat Clear Calc 30.54 Est GFR (MDRD) Af Amer 51 L Est GFR (MDRD) Non-Af 42 L BUN/Creatinine Ratio 24.0 H Glucose 174 H Calcium 9.3 Total Bilirubin 0.60 AST 16 ALT 17 Alkaline Phosphatase 104 Troponin I < 0.015 Total Protein 7.5 Albumin 3.4 Globulin 4.1 Albumin/Globulin Ratio 0.8 L Lipase 113 Urine Color Yellow Urine Clarity Sl. Cloudy Urine pH 7.0 Ur Specific Jeremiah 1.010 Urine Protein 100 H Urine Glucose (UA) Normal Urine Ketones 5 H Urine Occult Blood 50 H Urine Nitrite Negative Urine Bilirubin Negative Urine Urobilinogen Normal Ur Leukocyte Esterase Negative Urine RBC 0-5 SEEN Urine WBC 0 SEEN Ur Squamous Epith Cells 0 SEEN Urine Bacteria RARE Urine Mucus 0 SEEN POC Glucose 04/30/19 09:21 POC Glucose 176 H Assessment/Plan All Active Problems (Last Reviewed 04/30/19 @ 12:54 by Katelyn Grey PA-C) Incarcerated ventral hernia (Acute) Intestinal malabsorption, unspecified (Acute) Thrombocytopenia (Resolved) Drug induced neutropenia (Acute) Dehydration (Acute) Diarrhea (Acute) Hypomagnesemia (Acute) Chemotherapy management, encounter for (Acute) Educational circumstance (Acute) Ovarian epithelial cancer (Resolved) I am seeing this patient in conjunction with Dr. Main Impression: Incarcerated ventral incisional hernia Plan: Patient was discussed with Dr. Main. Dr. Mian will plan to perform an open ventral incisional hernia repair with possible mesh. Procedure details, risks and benefits have been explained to the patient. Patient has had the opportunity to ask and have questions answered. Patient verbally understands and agrees with the plan. Thank you for allowing us to participate in this patient's care. Code Visit Office Visits / Consults: [id number] IP Consult L3
[2019-04-30] MEDS: BUPIVACAINE LIPOSOME/PF 20 ML VIAL OPERA.SITE (14:30)
--- NOTE | 2019-04-30 14:35 | PCM.OPRPT ---
Problem List (1) Incarcerated ventral hernia Status: Acute (2) Ischemic necrosis of small bowel Status: Acute Report of Operation Date of Procedure: 04/30/19 Pre-Operative Diagnosis: 1. Incarcerated ventral hernia. 2. Ischemic small bowel secondary to intra-abdominal adhesions Post-Operative Diagnosis: Same Surgery/Procedure Performed:: Exploratory laparotomy. Resection of necrotic small bowel. Repair of incisional ventral hernia Type of Anesthesia:: General Anesthesiologist: Kristian Funk Specimen's removed: Small bowel Estimated Blood Loss (mL): < 50 cc Fluids Replaced: 1 L LR Description of Procedure: Patient was brought into the operating room placed in the supine position. Under excellent general trach intubation abdomen was sterilely prepped and draped in usual fashion. Local was injected previous midline incision was opened up I dissected down to the hernia sac I entered the hernia sac small bowel easily reduced and as I was bringing up the small bowel to run it I encountered a section of jejunum that was secondary to adhesion strangulating off the blood supply. I took the adhesions down resected the small intestine with a 55 linear cutter I then came across the mesentery with the Enseal ligature. I brought the 2 ends of the small intestine together created a [id number] functional end-to-end anastomosis with a 55 linear cutter and then a 60 stapler. I had excellent hemostasis. I put a 3-0 GI silk in the crotch stitch area I then closed the mesenteric window with 2-0 Vicryl. Once this was completed I look to see if there is any way that there was good fascia to bring together and unfortunately there just was not she had a defect all the way from her xiphoid down to her symphysis pubis with islands of good fascia. I brought look good fascia I could together with interrupted [id number] stitch of #1 Nurolon's. But I did not think to the defect that was in the inferior aspect toward the symphysis pubis. Subcu was then brought together with 2-0 Vicryl deep dermals with 3-0 Vicryl then a running 4-0 Monocryl. At the end there is just no way for me to do a better job at this she was starting to have some slight blood pressure problems requiring more fluids. The safest thing to do was get her closed and start to hydrate her appropriately. - Admit VTE Documentation VTE Present on Admission: No VTE Mechan Device Prophylaxis: SCD's VTE Pharm Prophylaxis ordered?: No Reason prophylaxis not ordered:: Treatment Not Indicated
[2019-04-30] MEDS: Lactated Ringers 1,000 ML 100 ML IV (16:58)
--- NOTE | 2019-04-30 17:40 | PCM.CONS.GEN ---
<Pascale Healy - Last Filed: 04/30/19 17:55> Problem List (1) History of ovarian cancer in adulthood Status: Chronic (2) Incarcerated ventral hernia Status: Acute (3) Ischemic necrosis of small bowel Status: Acute (4) Paroxysmal atrial flutter Status: Chronic (5) Essential hypertension Status: Chronic (6) Neuropathy Status: Chronic (7) Bilateral edema of lower extremity Status: Chronic (8) Iron deficiency anemia, unspecified Status: Chronic (9) Intestinal malabsorption, unspecified Status: Chronic (10) Cardiomyopathy in disease classified elsewhere Status: Chronic (11) Paroxysmal atrial fibrillation Status: Chronic (12) Hypothyroidism Status: Chronic (13) Lower extremity deep venous thrombosis Status: Resolved Qualifiers: Affected thrombotic vein of extremity: other lower extremity vein Chronicity: acute Laterality: left Qualified Code(s): I82.492 - Acute embolism and thrombosis of other specified deep vein of left lower extremity (14) Pulmonary embolism, bilateral Status: Resolved (15) Drug induced neutropenia Status: Resolved (16) Ovarian epithelial cancer Status: Resolved Qualifiers: Laterality: unspecified laterality Qualified Code(s): C56.9 - Malignant neoplasm of unspecified ovary (17) Arthritis Status: Chronic Reason for Consult Date of Consultation: 04/30/19 Reason for Consultation: Medical management. History of Present Illness: The patient is a 78 year old F who underwent exploratory laparotomy, resection of necrotic small bowel and repair of incisional ventral hernia today, 04/30/[address] Main. Hospitalist consulted for medical management. Patient resting comfortably in bed. She denies significant pain. Complains of mild nausea and postnasal drainage. Denies shortness of breath or other current symptoms. She has a past medical history of paroxysmal atrial flutter, hypertension, hypothyroidism, iron deficiency anemia, history of DVT/PE, history of ovarian cancer, chemo induced neuropathy. Past Medical History Past Medical History (Chronic Problems): Chronic Problems (Last Reviewed 04/30/19 @ 12:54 by Katelyn Grey PA-C) History of ovarian cancer in adulthood (Chronic) Paroxysmal atrial flutter (Chronic) Essential hypertension (Chronic) Neuropathy (Chronic) Bilateral edema of lower extremity (Chronic) Iron deficiency anemia, unspecified (Chronic) Intestinal malabsorption, unspecified (Chronic) Cardiomyopathy in disease classified elsewhere (Chronic) Paroxysmal atrial fibrillation (Chronic) Hypothyroidism (Chronic) Arthritis (Chronic) Medical History: Medical History (Last Reviewed 04/30/19 @ 12:54 by Katelyn Grey PA-C) Paroxysmal atrial flutter (Chronic) I48.92 Essential hypertension (Chronic) I10 Iron deficiency anemia, unspecified (Chronic) D50.9 Intestinal malabsorption, unspecified (Acute) K90.9 Cardiomyopathy in disease classified elsewhere (Chronic) I43 Paroxysmal atrial fibrillation (Chronic) I48.0 Pulmonary embolism (Chronic) I26.99 Arthritis (Chronic) M19.90 Anemia D64.9 Chronic nephritic syndrome N03.9 Hemorrhoid K64.9 History of squamous cell carcinoma Z85.89 Osteoarthritis M19.90 Ovarian cancer C56.9 med port placement Cardiac murmur R01.1 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 GERD (gastroesophageal reflux disease) K21.9 History of colon cancer Z85.038 Hypothyroidism E03.9 Atrial flutter, chronic I48.92 CATARACT SURGERY 2017 HTN (hypertension) (Inactive) I10 Allergies Penicillins Allergy (Severe, Verified 04/30/19 12:48) Hives Sulfa (Sulfonamide Antibiotics) Adverse Reaction (Severe, Verified 04/30/19 12:48) Nausea/Vom/Diarrhea Home Medications: Ambulatory Orders Medication Instructions Recorded [place]-3 Fatty Acids/Fish Oil 1 ea PO TID 06/07/18 [[place] 3 1,000 mg Softgel] carvedilol 12.5 mg tablet 12.5 mg PO BID #180 tab 06/18/18 coenzyme Q10 10 mg capsule 10 mg PO DAILY 06/18/18 omeprazole 20 mg-sodium 1 cap PO DAILY cap 09/12/18 bicarbonate 1.1 gram capsule enalapril maleate 20 mg tablet 20 mg PO BID #180 tab 10/01/18 aller-chor 1 tablet PO Q4H PRN PRN 01/07/19 fluticasone propionate 50 2 spray INTRANASAL BID 01/07/19 mcg/actuation nasal spray,suspension levothyroxine 75 mcg tablet 75 mcg PO DAILY #90 tab 04/08/19 Surgical History: Surgical History (Last Reviewed 04/30/19 @ 17:45 by AURORA Loomis) History of bowel resection Z98.890, Z90.49 02/27/18 H/O: hysterectomy Z98.890, Z90.710 2017 Hx of appendectomy Z90.49 S/P cataract extraction Z98.49 S/P colectomy Z90.49 2008 S/P skin cancer resection Z98.890 Status post colon resection Z90.49 Surgical History: hysterectomy, - - Partial bowel resection. Colostomy and later takedown. Psychiatric History: No pertinent psych hx MORNING [employer] History: ovarian cancer - History of Lives: Spouse/ Significant Other Smoking Status: Never smoker Alcohol: None Drugs: None - *Family History Maternal Family History: Family History (Last Reviewed 04/30/19 @ 17:46 by AURORA Loomis) Mother Colon cancer Heart disease Hypertension Father Kidney disease Myocardial infarction Brother Cancer Paternal Family History: Family History (Last Reviewed 04/30/19 @ 17:46 by AURORA Loomis) Mother Colon cancer Heart disease Hypertension Father Kidney disease Myocardial infarction Brother Cancer Review of Systems Constitutional: Denies: Chills, Fever, Weight Change HEENT: Reports: Post Nasal Drip. Denies: Head Aches, Sinus Congestion, Sinus Drainage Cardiovascular: Denies: Chest Pain, Edema, Light Headedness, Palpitations, Syncope Respiratory: Denies: Cough, Shortness of breath at rest, Sputum production Gastrointestinal: Reports: Nausea, - - Denies abdominal pain currently.. Denies: Abdominal Pain, Vomiting Genitourinary: Denies: Dysuria Musculoskeletal: Denies: Joint Pain, Joint Tenderness Skin: Denies: Rash, Wounds Neurological: Denies: Numbness, Tingling, Focal weakness Psychiatric: Denies: Anxiety, Depression, Homicidal Ideations, Suicidal Ideations Hematologic/ Lymphatic: Denies: Easy Bruising, Easy Bleeding Patient Problems: Active and Suspected Problems (Last Reviewed 04/30/19 @ 12:54 by Katelyn Grey PA-C) Incarcerated ventral hernia (Acute) Ischemic necrosis of small bowel (Acute) - Physical Exam General: Alert, Oriented x3, Cooperative HEENT: Atraumatic, PERRLA, EOMI, Normocephalic Oral: Dry Mucosa Neck: Supple, No JVD, Negative Carotid Bruits Lungs: Clear to auscultation, Diminished Cardiovascular: Regular rate, Regular Rhythm, Normal S1, Normal S2, No murmurs Abdomen: Bowel Sounds Present, Soft, Obese, Tender, - - Lap sites intact Extremities: No clubbing, No cyanosis, No edema, Capillary Refill Less than 3 Seconds Skin: No rashes, No breakdown Musculoskeletal: No Tenderness to Palpation of Joints or Extremities Neurological: Cranial nerves II-XII grossly intact, Neuro grossly intact Psych/Mental Status: Normal Affect, Appropriate Vital Signs Temp Pulse Resp BP Pulse Ox 97.3 F L 67 16 156/76 H 97 04/30/19 16:27 04/30/19 16:27 04/30/19 16:27 04/30/19 16:27 04/30/19 16:27 Oxygen Delivery Method Room Air Weight: 229 lb 15.991 oz Body Mass Index (BMI) 38.2 Finger Stick Blood Glucose 176 Intake and Output for Last 24 Hours 04/28/19 04/29/19 04/30/19 23:59 23:59 23:59 Intake Total 1900 / 1900 Output Total 325 / 325 Balance 1575 / 1575 Laboratory Tests Past 24 Hrs 04/30/19 04/30/19 04/30/19 09:34 09:34 09:34 WBC 12.7 H RBC 5.52 H Hgb 13.9 Hct 43.6 MCV 79.0 L MCH 25.2 L MCHC 31.9 L RDW Std Deviation 45.4 H RDW Coeff of Jose 16.0 H Plt Count 255 MPV 9.6 Immature Gran % (Auto) 0.500 Neut % (Auto) 78.4 H Lymph % (Auto) 15.6 L [place] % (Auto) 4.3 Eos % (Auto) 0.9 Baso % (Auto) 0.3 Absolute Neuts (auto) 9.9 H Absolute Lymphs (auto) 1.97 Nucleated RBC % 0 Sodium 137 Potassium 4.3 Chloride 106 Carbon Dioxide 23.0 Anion Gap 8 BUN 31 H Creatinine 1.29 H Estim Creat Clear Calc 30.54 Est GFR (MDRD) Af Amer 51 L Est GFR (MDRD) Non-Af 42 L BUN/Creatinine Ratio 24.0 H Glucose 174 H Calcium 9.3 Total Bilirubin 0.60 AST 16 ALT 17 Alkaline Phosphatase 104 Troponin I < 0.015 Total Protein 7.5 Albumin 3.4 Globulin 4.1 Albumin/Globulin Ratio 0.8 L Lipase 113 Urine Color Yellow Urine Clarity Sl. Cloudy Urine pH 7.0 Ur Specific [place] 1.010 Urine Protein 100 H Urine Glucose (UA) Normal Urine Ketones 5 H Urine Occult Blood 50 H Urine Nitrite Negative Urine Bilirubin Negative Urine Urobilinogen Normal Ur Leukocyte Esterase Negative Urine RBC 0-5 SEEN Urine WBC 0 SEEN Ur Squamous Epith Cells 0 SEEN Urine Bacteria RARE Urine Mucus 0 SEEN POC Glucose 04/30/19 09:21 POC Glucose 176 H Assessment/Plan All Active Problems (Last Reviewed 04/30/19 @ 12:54 by Katelyn Grey PA-C) Incarcerated ventral hernia (Acute) Ischemic necrosis of small bowel (Acute) Drug induced neutropenia (Resolved) Lower extremity deep venous thrombosis (Resolved) Ovarian epithelial cancer (Resolved) Pulmonary embolism, bilateral (Resolved) 1. Incarcerated ventral hernia, ischemic small bowel secondary to intra-abdominal adhesions status post exploratory laparotomy, resection of necrotic small bowel and repair of incisional ventral hernia 04/30/[address] Main. Doing well. Denies significant pain. 2. Paroxysmal atrial flutter-not on anticoagulation. Rate controlled. Continue carvedilol regimen. Follows with Dr. Son. 3. Chronic kidney disease stage III-creatinine appears at baseline however mildly dehydrated. Trend BMP. 4. Hypertension-stable, continue home carvedilol, enalapril regimen. 5. Hypothyroidism-continue Synthroid regimen. 6. Iron deficiency anemia-at baseline, trend CBC. 7. 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 8. 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 Follows with Dr. Keyes. 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 10. Obesity-encouraged diet and lifestyle modifications. DVT prophylaxis- Lovenox sc This patient was seen by AURORA Loomis under the supervision of Dr. Bowen. <Fang Bowen - Last Filed: 04/30/19 18:44> Reason for Consult History of Present Illness: The patient is a 78 year old F [] Past Medical History Medical History: Medical History (Last Reviewed 04/30/19 @ 12:54 by Katelyn Grey PA-C) Paroxysmal atrial flutter (Chronic) I48.92 Essential hypertension (Chronic) I10 Iron deficiency anemia, unspecified (Chronic) D50.9 Intestinal malabsorption, unspecified (Acute) K90.9 Cardiomyopathy in disease classified elsewhere (Chronic) I43 Paroxysmal atrial fibrillation (Chronic) I48.0 Pulmonary embolism (Chronic) I26.99 Arthritis (Chronic) M19.90 Anemia D64.9 Chronic nephritic syndrome N03.9 Hemorrhoid K64.9 History of squamous cell carcinoma Z85.89 Osteoarthritis M19.90 Ovarian cancer C56.9 med port placement Cardiac murmur R01.1 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 GERD (gastroesophageal reflux disease) K21.9 History of colon cancer Z85.038 Hypothyroidism E03.9 Atrial flutter, chronic I48.92 CATARACT SURGERY 2017 HTN (hypertension) (Inactive) I10 Allergies Penicillins Allergy (Severe, Verified 04/30/19 12:48) Hives Sulfa (Sulfonamide Antibiotics) Adverse Reaction (Severe, Verified 04/30/19 12:48) Nausea/Vom/Diarrhea Surgical History: Surgical History (Last Reviewed 04/30/19 @ 17:45 by AURORA Loomis) History of bowel resection Z98.890, Z90.49 02/27/18 H/O: hysterectomy Z98.890, Z90.710 2017 Hx of appendectomy Z90.49 S/P cataract extraction Z98.49 S/P colectomy Z90.49 2008 S/P skin cancer resection Z98.890 Status post colon resection Z90.49 - *Family History Maternal Family History: Family History (Last Reviewed 04/30/19 @ 17:46 by AURORA Loomis) Mother Colon cancer Heart disease Hypertension Father Kidney disease Myocardial infarction Brother Cancer Paternal Family History: Family History (Last Reviewed 04/30/19 @ 17:46 by AURORA Loomis) Mother Colon cancer Heart disease Hypertension Father Kidney disease Myocardial infarction Brother Cancer - Physical Exam Vital Signs Temp Pulse Resp BP Pulse Ox 97.3 F L 71 16 156/76 H 97 04/30/19 16:27 04/30/19 18:15 04/30/19 16:27 04/30/19 16:27 04/30/19 16:27 Oxygen Delivery Method Room Air Weight: 229 lb 15.991 oz Body Mass Index (BMI) 38.2 Finger Stick Blood Glucose 176 Intake and Output for Last 24 Hours 08/04/19 08/05/19 08/06/19 23:59 23:59 23:59 Intake Total 2049 Output Total 325 / 325 Balance 1725 / 1725 Laboratory Tests Past 24 Hrs 04/30/19 04/30/19 04/30/19 09:34 09:34 09:34 WBC 12.7 H RBC 5.52 H Hgb 13.9 Hct 43.6 MCV 79.0 L MCH 25.2 L MCHC 31.9 L RDW Std Deviation 45.4 H RDW Coeff of Jose 16.0 H Plt Count 255 MPV 9.6 Immature Gran % (Auto) 0.500 Neut % (Auto) 78.4 H Lymph % (Auto) 15.6 L [place] % (Auto) 4.3 Eos % (Auto) 0.9 Baso % (Auto) 0.3 Absolute Neuts (auto) 9.9 H Absolute Lymphs (auto) 1.97 Nucleated RBC % 0 Sodium 137 Potassium 4.3 Chloride 106 Carbon Dioxide 23.0 Anion Gap 8 BUN 31 H Creatinine 1.29 H Estim Creat Clear Calc 30.54 Est GFR (MDRD) Af Amer 51 L Est GFR (MDRD) Non-Af 42 L BUN/Creatinine Ratio 24.0 H Glucose 174 H Calcium 9.3 Total Bilirubin 0.60 AST 16 ALT 17 Alkaline Phosphatase 104 Troponin I < 0.015 Total Protein 7.5 Albumin 3.4 Globulin 4.1 Albumin/Globulin Ratio 0.8 L Lipase 113 Urine Color Yellow Urine Clarity Sl. Cloudy Urine pH 7.0 Ur Specific [place] 1.010 Urine Protein 100 H Urine Glucose (UA) Normal Urine Ketones 5 H Urine Occult Blood 50 H Urine Nitrite Negative Urine Bilirubin Negative Urine Urobilinogen Normal Ur Leukocyte Esterase Negative Urine RBC 0-5 SEEN Urine WBC 0 SEEN Ur Squamous Epith Cells 0 SEEN Urine Bacteria RARE Urine Mucus 0 SEEN POC Glucose 04/30/19 09:21 POC Glucose 176 H Assessment/Plan Patient seen by Pascale SIMON under my supervision Patient was admitted on account of incarcerated ventral hernia was also found to have ischemic bowel. This was thought to be due to intra-abdominal adhesions. Surgery was done on 04/30/2019 and hospitalist service was consulted for medical management. Been seen and examined. Pain was well controlled. She complained of some nausea. She had no other complaints. She denied any fever chills, palpitations, dizziness, diarrhea vomiting. Review of systems otherwise negative. Labs and vitals reviewed. o/e: General: Alert, Oriented x3, Cooperative HEENT: Atraumatic, PERRLA, EOMI, Normocephalic Oral: Dry Mucosa Neck: Supple, No JVD, Negative Carotid Bruits Lungs: Clear to auscultation, Diminished Cardiovascular: Regular rate, Regular Rhythm, Normal S1, Normal S2, No murmurs Abdomen: Bowel Sounds diminished, Soft, Obese, Tender, - abdominal binder over surgical site Extremities: No clubbing, No cyanosis, No edema, Capillary Refill Less than 3 Seconds Skin: No rashes, No breakdown Musculoskeletal: No Tenderness to Palpation of Joints or Extremities Neurological: Cranial nerves II-XII grossly intact, Neuro grossly intact Psych/Mental Status: Normal Affect, Appropriate Management of surgical site postop as per general surgery. Patient has a history of atrial for flutter which is currently rate controlled. Not on anticoagulation. On carvedilol. Follow-up with cardiology in outpatient basis. Creatinine at baseline. Patient says she is worried about neuropathy which is due to chemotherapy but states she was told to try gabapentin which she really does not want to. SCDs for DVT prophylaxis for now. Consider starting anticoagulation once general surgery is okay with it. Incentive spirometry. PT OT on board. Rest of management as per AURORA Loomis's notes which I reviewed and endorsed. You for the courtesy of the consult. We will continue to follow with you. Code Visit Inpatient E&M: [id number] Subs Hosp L2
[2019-04-30] MEDS: Fluticasone 0.05% 1 SPRAY NASAL.SRY 2 SPRAY NASAL (18:46)
[2019-04-30] MEDS: Lisinopril 20 MG Tablet PO (21:30)
[2019-04-30] MEDS: Carvedilol 12.5 MG Tablet PO (21:30)
--- NOTE | 2019-04-30 22:20 | NURSING ---
Pt OOB and stood at bedside at this time. Pt tolerated well. Pt laid back in bed, IV compazine given for c/o amanda.
[2019-04-30] MEDS: proCHLORPERazine 10 MG/2 ML Vial 5 MG IV (22:28)
[2019-05-01] VITALS (8 sets, daily range): BP systolic 117–146; BP diastolic 61–71; PULSE 65–91; RESP 18; TEMP 36.2–37.2; O2SAT 94–98
[2019-05-01] MEDS: Lactated Ringers 1,000 ML 100 ML IV (02:53)
[2019-05-01] MEDS: Levothyroxine 75 MCG Tablet PO (05:29)
[2019-05-01] MEDS: Acetaminophen 325 MG Tablet 650 MG PO ×2 (05:30→15:41)
--- NOTE | 2019-05-01 07:04 | NURSING ---
Pt's Ambrose catheter DC'd at this time, pt tolerated well.
[2019-05-01] MEDS: Fluticasone 0.05% 1 SPRAY NASAL.SRY 2 SPRAY NASAL (07:46)
[2019-05-01] MEDS: Enoxaparin 40 MG/0.4 ML Syringe SC (07:46)
[2019-05-01] MEDS: Lisinopril 20 MG Tablet PO ×2 (07:47→21:44)
[2019-05-01] MEDS: Carvedilol 12.5 MG Tablet PO ×2 (07:47→21:44)
[2019-05-01] MEDS: Pantoprazole Sodium 20 MG Tablet PO (07:47)
[2019-05-01 08:17] LABS: Absolute Lymphocyte Count 1.16 X10^3/uL (0.83-4.51); Absolute Neutrophil Count 9.9 X10^3/uL (2.0-7.7); Basophil# 0.01 X10^3/uL; Basophil% 0.1 % (0-1); Eosinophil# 0.01 X10^3/uL; Eosinophils% 0.1 % (0-5); Hematocrit 35.6 % (37-47); Hemoglobin 11.4 g/dL (12.0-15.0); Lymphocyte # 1.16 X10^3/ul (4.0); Lymphocyte % 9.5 % (19-41); Mean Corpuscular Hgb 25.7 pg (27.0-32.0); Mean Corpuscular Volume 80.4 fL (81-99); Mean Platelet Vol. 9.9 fl (6.2-12.0); Monocyte# 1.09 X10^3/uL; Monocyte% 8.9 % (0-10); NRBC Flagged by Analyzer 0 % (0-5); Neutrophil # 9.93 X10^3/uL (2.7-7.7); Neutrophil % 81.1 % (47-70); Platelet Count 213 K/mm3 (150-450); RBC Distribution Width CV 16.7 % (11.6-14.6); RBC Distribution Width SD 48.2 fl (35.1-43.9); Red Blood Count 4.43 M/mm3 (4.2-5.4); White Blood Count 12.2 K/mm3 (4.4-11.0)
--- NOTE | 2019-05-01 08:21 | PN.SURG_ITS ---
Patient Problems: Active and Suspected Problems (Last Reviewed 04/30/19 @ 12:54 by Katelyn Grey PA-C) Incarcerated ventral hernia (Acute) Ischemic necrosis of small bowel (Acute) Subjective: Patient evaluated resting comfortably in bed. She denies incisional pain/discomfort. She denies nausea, vomiting. Denies flatus, BM. - Physical Exam General: Alert, Oriented x3, Cooperative Abdomen: Soft, Non Tender, Non-Distended, Obese, - - Incision c/d/i. No erythema or infection noted. Binder in place Vital Signs Temp Pulse Resp BP Pulse Ox 98.2 F 83 18 117/65 95 05/01/19 07:41 05/01/19 07:41 05/01/19 07:41 05/01/19 07:41 05/01/19 07:41 Oxygen Delivery Method Room Air Weight: 229 lb 15.991 oz Body Mass Index (BMI) 38.2 Finger Stick Blood Glucose 176 Intake and Output for Last 24 Hours 04/29/19 04/30/19 05/01/19 23:59 23:59 23:59 Intake Total 2050 / 3065 1679 / 1679 Output Total 325 / 625 500 / 500 Balance 1725 / 2440 1179 / 1179 Laboratory Tests Past 24 Hrs 04/30/19 04/30/19 04/30/19 09:34 09:34 09:34 WBC 12.7 H RBC 5.52 H Hgb 13.9 Hct 43.6 MCV 79.0 L MCH 25.2 L MCHC 31.9 L RDW Std Deviation 45.4 H RDW Coeff of Jose 16.0 H Plt Count 255 MPV 9.6 Immature Gran % (Auto) 0.500 Neut % (Auto) 78.4 H Lymph % (Auto) 15.6 L [place] % (Auto) 4.3 Eos % (Auto) 0.9 Baso % (Auto) 0.3 Absolute Neuts (auto) 9.9 H Absolute Lymphs (auto) 1.97 Nucleated RBC % 0 Sodium 137 Potassium 4.3 Chloride 106 Carbon Dioxide 23.0 Anion Gap 8 BUN 31 H Creatinine 1.29 H Estim Creat Clear Calc 30.54 Est GFR (MDRD) Af Amer 51 L Est GFR (MDRD) Non-Af 42 L BUN/Creatinine Ratio 24.0 H Glucose 174 H Calcium 9.3 Total Bilirubin 0.60 AST 16 ALT 17 Alkaline Phosphatase 104 Troponin I < 0.015 Total Protein 7.5 Albumin 3.4 Globulin 4.1 Albumin/Globulin Ratio 0.8 L Lipase 113 Urine Color Yellow Urine Clarity Sl. Cloudy Urine pH 7.0 Ur Specific [place] 1.010 Urine Protein 100 H Urine Glucose (UA) Normal Urine Ketones 5 H Urine Occult Blood 50 H Urine Nitrite Negative Urine Bilirubin Negative Urine Urobilinogen Normal Ur Leukocyte Esterase Negative Urine RBC 0-5 SEEN Urine WBC 0 SEEN Ur Squamous Epith Cells 0 SEEN Urine Bacteria RARE Urine Mucus 0 SEEN 05/01/19 05/01/19 08:00 08:00 WBC 12.2 H RBC 4.43 Hgb 11.4 L Hct 35.6 L MCV 80.4 L MCH 25.7 L MCHC 32.0 RDW Std Deviation 48.2 H RDW Coeff of Jose 16.7 H Plt Count 213 MPV 9.9 Immature Gran % (Auto) 0.300 Neut % (Auto) 81.1 H Lymph % (Auto) 9.5 L [place] % (Auto) 8.9 Eos % (Auto) 0.1 Baso % (Auto) 0.1 Absolute Neuts (auto) 9.9 H Absolute Lymphs (auto) 1.16 Nucleated RBC % 0 Sodium Pending Potassium Pending Chloride Pending Carbon Dioxide Pending Anion Gap Pending BUN Pending Creatinine Pending Estim Creat Clear Calc Est GFR (MDRD) Af Amer Pending Est GFR (MDRD) Non-Af Pending BUN/Creatinine Ratio Pending Glucose Pending Calcium Pending Total Bilirubin AST ALT Alkaline Phosphatase Troponin I Total Protein Albumin Globulin Albumin/Globulin Ratio Lipase Urine Color Urine Clarity Urine pH Ur Specific [place] Urine Protein Urine Glucose (UA) Urine Ketones Urine Occult Blood Urine Nitrite Urine Bilirubin Urine Urobilinogen Ur Leukocyte Esterase Urine RBC Urine WBC Ur Squamous Epith Cells Urine Bacteria Urine Mucus POC Glucose 04/30/19 09:21 POC Glucose 176 H Medical Necessity - Tobacco Use Smoking Status: Never smoker Assessment/Plan All Active Problems (Last Reviewed 04/30/19 @ 12:54 by Katelyn Grey PA-C) Incarcerated ventral hernia (Acute) Ischemic necrosis of small bowel (Acute) Drug induced neutropenia (Resolved) Lower extremity deep venous thrombosis (Resolved) Ovarian epithelial cancer (Resolved) Pulmonary embolism, bilateral (Resolved) I am following this patient in conjunction with Dr. Main. Impression: S/p Exploratory laparotomy. Resection of necrotic small bowel. Repair of incisional ventral hernia - Start on clears - Ambulation and I.S. - We will continue to monitor this patient - Probable discharge tomorrow Code Visit Inpatient E&M: 93983 Subs Hosp L1 - No charge
[2019-05-01 08:33] LABS: Anion Gap 7 (5-15); BUN 29 mg/dL (7-18); BUN/Creat Ratio 19.5 RATIO (10-20); Calcium,Total 8.1 mg/dL (8.5-10.1); Chloride 106 mmol/L (98-107); Creatinine, Serum 1.49 mg/dL (0.55-1.02); EST Glomerular Filtration Rate 36 mL/min (>60); Est Glom Filt Rate - Afr Amer 43 mL/min (>60); Estimated Creatinine Clearance 27.55 ml/min; Glucose 113 mg/dL (74-106); Potassium 4.6 mmol/L (3.5-5.1); Sodium Level 136 mmol/L (136-145)
--- NOTE | 2019-05-01 10:40 | CASEMGMT ---
RN PAVITH[employer] CM to room to meet with patient for initial transition planning/care coordination assessment. LUIS ARSHAD introduced self and role at [facility]. Pt voices understanding and consents to assessment at this time. Pt resting in bed in no distress at this time. Pt is A/O at this time and answers all questions appropriately. Care providers, pharmacy, and demographics verified/updated at this time. PCP: Lauryn Specialists: Stephy-oncology, Bradly--[employer] oncology Preferred Pharmacy: [facility] Insurance: [facility], [employer] Prescription Benefit: [employer] Rx Living Will/HPOA: does not have LW or HCPOA . Interested in more information and would like to talk to TOMAS. TOMAS Jerome, notified. LNOK: Has one living brother, Calos, who lives in [place]. Pt states Calos came from [place] when he found out pt was in the hospital and is staying at her home until she is discharged from the hospital. He will return to [place] once she is home. Living Arrangements: Lives alone in 2-story home w/a basement. Pt has FFSU, but that she does need to go to the basement where the cat litter box is. Laundry is on the main floor as well. She states I'm careful on the stairs. has double rails to the basement and single rails to the upstairs. is independent with ADL's and home mgmt tasks. Does hire someone to clean for her. Transportation: Pt states drives self and states no transportation concerns at this time. States her brother or a friend will drive her home @ D/C. DME: has the following DME: Walk in shower w/built in seat, rails/grab bars, hand-held shower. has a walker but does not use it. Pt states no need for further DME at this time. HHC/SNF: No hx SNF in the past. had a one-time visit from HHC agency in the past, she thinks from [facility], but is not sure. Pt denies need for HHC at discharge. Pt wishes to return home and states has no concerns with going home at time of discharge. CM to follow for any discharge planning/needs. Pt voices no further concerns/needs at this time. Advised pt to ask for CM if any further questions/concerns/needs arise. Voices understanding. PLAN: Home Nivia ORDONEZN RN CM
--- NOTE | 2019-05-01 12:23 | PN_ITS ---
<Pascale Healy - Last Filed: 05/01/19 12:25> Patient Problems: Active and Suspected Problems (Last Reviewed 04/30/19 @ 12:54 by Katelyn Grey PA-C) Incarcerated ventral hernia (Acute) Ischemic necrosis of small bowel (Acute) Subjective: Patient seen and examined. Resting comfortably in bed. Denies pain. Not yet passing flatus. Denies current complaints. - Physical Exam General: Alert, Oriented x3, Cooperative HEENT: Atraumatic, PERRLA, EOMI, Normocephalic Neck: Supple, No JVD, Negative Carotid Bruits Lungs: Clear to auscultation, Normal air movement Cardiovascular: Regular rate, Regular Rhythm, Normal S1, Normal S2, No murmurs Abdomen: Bowel Sounds Present, Soft, Non-Distended, Obese, Tender, - - Lap sites intact Extremities: No clubbing, No cyanosis, No edema, Capillary Refill Less than 3 Seconds Skin: No rashes, No breakdown Musculoskeletal: No Tenderness to Palpation of Joints or Extremities Neurological: Cranial nerves II-XII grossly intact, Neuro grossly intact Psych/Mental Status: Normal Affect, Appropriate Vital Signs Temp Pulse Resp BP Pulse Ox 98.2 F 83 18 117/65 95 05/01/19 07:41 05/01/19 07:41 05/01/19 07:41 05/01/19 07:41 05/01/19 07:41 Oxygen Delivery Method Room Air Weight: 229 lb 15.991 oz Body Mass Index (BMI) 38.2 Finger Stick Blood Glucose 176 Intake and Output for Last 24 Hours 04/29/19 04/30/19 05/01/19 23:59 23:59 23:59 Intake Total 2050 / 3065 2617 / 2617 Output Total 325 / 625 575 / 575 Balance 1725 / 2440 2042 / 2042 Laboratory Tests Past 24 Hrs 05/01/19 05/01/19 08:00 08:00 WBC 12.2 H RBC 4.43 Hgb 11.4 L Hct 35.6 L MCV 80.4 L MCH 25.7 L MCHC 32.0 RDW Std Deviation 48.2 H RDW Coeff of Jose 16.7 H Plt Count 213 MPV 9.9 Immature Gran % (Auto) 0.300 Neut % (Auto) 81.1 H Lymph % (Auto) 9.5 L [place] % (Auto) 8.9 Eos % (Auto) 0.1 Baso % (Auto) 0.1 Absolute Neuts (auto) 9.9 H Absolute Lymphs (auto) 1.16 Nucleated RBC % 0 Sodium 136 Potassium 4.6 Chloride 106 Carbon Dioxide 23.0 Anion Gap 7 BUN 29 H Creatinine 1.49 H Estim Creat Clear Calc 27.55 Est GFR (MDRD) Af Amer 43 L Est GFR (MDRD) Non-Af 36 L BUN/Creatinine Ratio 19.5 Glucose 113 H Calcium 8.1 L Medical Necessity - Tobacco Use Smoking Status: Never smoker Assessment/Plan All Active Problems (Last Reviewed 04/30/19 @ 12:54 by Katelyn Grey PA-C) Incarcerated ventral hernia (Acute) Ischemic necrosis of small bowel (Acute) Drug induced neutropenia (Resolved) Lower extremity deep venous thrombosis (Resolved) Ovarian epithelial cancer (Resolved) Pulmonary embolism, bilateral (Resolved) 1. Incarcerated ventral hernia, ischemic small bowel secondary to intra- abdominal adhesions status post exploratory laparotomy, resection of necrotic small bowel and repair of incisional ventral hernia 04/30/[address] Main. Doing well. Denies significant pain. Management per surgery. PT/OT. 2. Paroxysmal atrial flutter-not on anticoagulation. Rate controlled. Continue carvedilol regimen. Follows with Dr. Son. 3. Chronic kidney disease stage III-creatinine appears at baseline however mildly dehydrated. Trend BMP. 4. Hypertension-stable, continue home carvedilol, enalapril regimen. 5. Hypothyroidism-continue Synthroid regimen. 6. Iron deficiency anemia-at baseline, trend CBC. 7. 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 8. 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 Follows with Dr. Keyes. 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 10. Obesity-encouraged diet and lifestyle modifications. DVT prophylaxis- Lovenox sc This patient was seen by [facility] under the supervision of Dr. Eason. <Stefanie Eason - Last Filed: 05/01/19 13:58> - Physical Exam Vital Signs Temp Pulse Resp BP Pulse Ox 98.2 F 83 18 117/65 95 05/01/19 07:41 05/01/19 07:41 05/01/19 07:41 05/01/19 07:41 05/01/19 07:41 Oxygen Delivery Method Room Air Weight: 104.326 kg Body Mass Index (BMI) 38.2 Finger Stick Blood Glucose 176 Intake and Output for Last 24 Hours 04/29/19 04/30/19 05/01/19 23:59 23:59 23:59 Intake Total 2050 / 3065 2617 / 2617 Output Total 325 / 625 575 / 575 Balance 1725 / 2440 204 / 2042 Laboratory Tests Past 24 Hrs 05/01/19 05/01/19 05/01/19 08:00 08:00 13:35 WBC 12.2 H RBC 4.43 Hgb 11.4 L Hct 35.6 L MCV 80.4 L MCH 25.7 L MCHC 32.0 RDW Std Deviation 48.2 H RDW Coeff of Jose 16.7 H Plt Count 213 MPV 9.9 Immature Gran % (Auto) 0.300 Neut % (Auto) 81.1 H Lymph % (Auto) 9.5 L [place] % (Auto) 8.9 Eos % (Auto) 0.1 Baso % (Auto) 0.1 Absolute Neuts (auto) 9.9 H Absolute Lymphs (auto) 1.16 Nucleated RBC % 0 Sodium 136 Potassium 4.6 Chloride 106 Carbon Dioxide 23.0 Anion Gap 7 BUN 29 H Creatinine 1.49 H Estim Creat Clear Calc 27.55 Est GFR (MDRD) Af Amer 43 L Est GFR (MDRD) Non-Af 36 L BUN/Creatinine Ratio 19.5 Glucose 113 H Calcium 8.1 L Random Gentamicin Pending Assessment/Plan This patient was seen in conjunction with Pascale Healy NP. I have independently interviewed and examined the patient and reviewed pertinent historical, laboratory, and other data. Please refer to her note for patient's presentation, findings, and recommendations. Patient was seen and examined. Her pain is controlled. No acute events overnight. She has not moved her bowels yet. Denied any fever or chills Vitals were reviewed -stable Physical Exam: Gen:Comfortable, obese, not pale, not jaundiced, alert oriented x3 CVS:HS I +II, regular, no murmurs RESP: Diminished at lung bases GI: BS present and normal, midline dressing clean, dry, abdominal binder present, tenderness over the incisional areas EXT:No edema ASSESSMENT: 1. Postop day #1, status post exploratory laparotomy, resection of necrotic small bowel, repair of incisional ventral hernia 2. Paroxysmal atrial flutter, rate controlled 3. CKD stage III 4. Hypertension 5. Hypothyroidism 6. Iron deficiency anemia 7. History of ovarian CA with pelvic mets, in remission 8. Obesity, BMI 38.3 Meds reviewed Plan: Continue on IV fluids, continue per General surgery recommendations Code Visit Inpatient E&M: 04092 Subs Hosp L2
[2019-05-01] MEDS: Lactated Ringers 1,000 ML 125 ML IV ×2 (12:59→21:45)
[2019-05-01 14:49] LABS: Gentamicin, Random 1.6 ug/mL
--- NOTE | 2019-05-01 15:18 | PCM.RX.CS ---
Consult Pharmacy has been consulted to manage selected antiobiotic: Gentamicin Type of Consult: New start Suspected Infection: Other Prior Doses of Antibiotics Received/Current Regimen: Patient received 270mg iv x 1 on 04.30.19. Labs: Sodium 136 mmol/L (136-145) 05/01/19 08:00 Potassium 4.6 mmol/L (3.5-5.1) 05/01/19 08:00 Chloride 106 mmol/L (98-107) 05/01/19 08:00 Carbon Dioxide 23.0 mmol/L (21.0-32.0) 05/01/19 08:00 7 (5-15) 05/01/19 08:00 BUN 29 mg/dL (7-18) H 05/01/19 08:00 1.49 mg/dL (0.55-1.02) H 05/01/19 08:00 Est GFR (MDRD) Af Amer 43 mL/min (>60) L 05/01/19 08:00 Est GFR (MDRD) Non-Af 36 mL/min (>60) L 05/01/19 08:00 19.5 RATIO (10-20) 05/01/19 08:00 Glucose 113 mg/dL (74-106) H 05/01/19 08:00 Random Gentamicin 1.6 ug/mL 05/01/19 13:35 Weight used for dosin.7 kg Estimated Creatinine Clearance: ~28 ml/min Goal Trough: Other - goal of random level <1.0 Pharmacy Plan for Drug Dosing: Random level 05.01.19 @1335, 24 hrs post dose was 1.6 (goal <1.0). Will not give any further doses at this time. Will repeat random level in another 24hrs on 05.02.19 at 1300 and monitor renal function. Pharmacy Service will continue to monitor and adjust dosing as required. Follow-Up Labs: Trough Gentamicin - random level @1300 on 05.02.19
--- NOTE | 2019-05-01 15:51 | CASEMGMT ---
Social Work Note SW received referral for advanced directives. SW will follow up with pt tomorrow in regards to advanced directives. Jazmin Garcia INSURANCE PLAN SPECIALIST, COMMUNITY LIVING COACH
--- NOTE | 2019-05-01 19:39 | NURSING ---
Facial flushing noticed around 1700. Continued to get worse. No c/o itching/rash just feeling of warmth. Dr. Eason notified and stated to continue to monitor patient. During bedside shift report flushing noted to be more red and some slight swelling around left jaw. [employer]ep Tender RN aware and will monitor.
--- NOTE | 2019-05-01 20:17 | PCM.PN.BLA ---
Progress Note Nurse reports of flushing and swelling that may be from clindamycin. Patient with multiple antibiotic allergy. Will stop clindamycin and start patient on aztreonam.
[2019-05-02 01:50] VITALS: BP 154/53; PULSE 77; RESP 18; TEMP 36.6; O2SAT 99
[2019-05-02 06:14] LABS: Absolute Lymphocyte Count 0.97 X10^3/uL (0.83-4.51); Absolute Neutrophil Count 6.2 X10^3/uL (2.0-7.7); Basophil# 0.02 X10^3/uL; Basophil% 0.2 % (0-1); Eosinophil# 0.07 X10^3/uL; Eosinophils% 0.9 % (0-5); Hematocrit 28.9 % (37-47); Hemoglobin 9.2 g/dL (12.0-15.0); Lymphocyte # 0.97 X10^3/ul (4.0); Lymphocyte % 11.9 % (19-41); Mean Corp Hgb Conc 31.8 g/dL (32-36); Mean Corpuscular Volume 81.6 fL (81-99); Mean Platelet Vol. 9.3 fl (6.2-12.0); Monocyte# 0.77 X10^3/uL; Monocyte% 9.5 % (0-10); NRBC Flagged by Analyzer 0 % (0-5); Neutrophil # 6.24 X10^3/uL (2.7-7.7); Neutrophil % 76.9 % (47-70); Platelet Count 144 K/mm3 (150-450); RBC Distribution Width CV 16.8 % (11.6-14.6); RBC Distribution Width SD 50.3 fl (35.1-43.9); Red Blood Count 3.54 M/mm3 (4.2-5.4); White Blood Count 8.1 K/mm3 (4.4-11.0)
[2019-05-02] MEDS: Levothyroxine 75 MCG Tablet PO (06:23)
[2019-05-02] MEDS: 0.9% NaCl Peripheral Flush Adult/Peds IV ×2 (06:23→14:11)
[2019-05-02] MEDS: Lactated Ringers 1,000 ML 125 ML IV ×3 (06:23→21:24)
[2019-05-02 06:55] LABS: Anion Gap 6 (5-15); BUN 23 mg/dL (7-18); Calcium,Total 8.1 mg/dL (8.5-10.1); Chloride 108 mmol/L (98-107); Creatinine, Serum 1.28 mg/dL (0.55-1.02); EST Glomerular Filtration Rate 43 mL/min (>60); Est Glom Filt Rate - Afr Amer 52 mL/min (>60); Estimated Creatinine Clearance 32.07 ml/min; Glucose 101 mg/dL (74-106); Sodium Level 141 mmol/L (136-145)
--- NOTE | 2019-05-02 07:24 | PN.SURG_ITS ---
Patient Problems: Active and Suspected Problems (Last Reviewed 04/30/19 @ 12:54 by Katelyn Grey PA-C) Incarcerated ventral hernia (Acute) Ischemic necrosis of small bowel (Acute) Subjective: Patient evaluated resting comfortably in bed. She denies abdominal pain except with movement. She had to be straight cathed x 1 overnight. She notes she is voiding better today. She notes waves of nausea however feels this may be from not eating. Negative flatus, BM. WBC has returned to normal. Tolerating clear liquids. Patient had a reaction to clindamycin last evening. This was stopped and switched to different antibiotic. - Physical Exam General: Alert, Oriented x3, Cooperative Abdomen: Soft, Non Tender, Distended - slightly, Obese, - - Incision c/d/i. No erythema or infection noted Vital Signs Temp Pulse Resp BP Pulse Ox 97.9 F 77 18 154/53 H 99 05/02/19 01:50 05/02/19 01:50 05/02/19 01:50 05/02/19 01:50 05/02/19 01:50 Oxygen Delivery Method Room Air Weight: 229 lb 15.991 oz Body Mass Index (BMI) 38.2 Finger Stick Blood Glucose 176 Intake and Output for Last 24 Hours 04/30/19 05/01/19 05/02/19 23:59 23:59 23:59 Intake Total 2050 / 3065 2977 / 5104 2887 / 2887 Output Total 325 / 625 775 / 1725 2155 / 2155 Balance 1725 / 2440 2202 / 3379 732 / 732 Laboratory Tests Past 24 Hrs 05/01/19 05/01/19 05/01/19 08:00 08:00 13:35 WBC 12.2 H RBC 4.43 Hgb 11.4 L Hct 35.6 L MCV 80.4 L MCH 25.7 L MCHC 32.0 RDW Std Deviation 48.2 H RDW Coeff of Jose 16.7 H Plt Count 213 MPV 9.9 Immature Gran % (Auto) 0.300 Neut % (Auto) 81.1 H Lymph % (Auto) 9.5 L [place] % (Auto) 8.9 Eos % (Auto) 0.1 Baso % (Auto) 0.1 Absolute Neuts (auto) 9.9 H Absolute Lymphs (auto) 1.16 Nucleated RBC % 0 Sodium 136 Potassium 4.6 Chloride 106 Carbon Dioxide 23.0 Anion Gap 7 BUN 29 H Creatinine 1.49 H Estim Creat Clear Calc 27.55 Est GFR (MDRD) Af Amer 43 L Est GFR (MDRD) Non-Af 36 L BUN/Creatinine Ratio 19.5 Glucose 113 H Calcium 8.1 L Random Gentamicin 1.6 05/02/19 05/02/19 05:55 05:55 WBC 8.1 RBC 3.54 L Hgb 9.2 L Hct 28.9 L MCV 81.6 MCH 26.0 L MCHC 31.8 L RDW Std Deviation 50.3 H RDW Coeff of Jose 16.8 H Plt Count 144 L MPV 9.3 Immature Gran % (Auto) 0.600 Neut % (Auto) 76.9 H Lymph % (Auto) 11.9 L [place] % (Auto) 9.5 Eos % (Auto) 0.9 Baso % (Auto) 0.2 Absolute Neuts (auto) 6.2 Absolute Lymphs (auto) 0.97 Nucleated RBC % 0 Sodium 141 Potassium 4.0 Chloride 108 H Carbon Dioxide 27.0 Anion Gap 6 BUN 23 H Creatinine 1.28 H Estim Creat Clear Calc 32.07 Est GFR (MDRD) Af Amer 52 L Est GFR (MDRD) Non-Af 43 L BUN/Creatinine Ratio 18.0 Glucose 101 Calcium 8.1 L Random Gentamicin Medical Necessity - Tobacco Use Smoking Status: Never smoker Assessment/Plan All Active Problems (Last Reviewed 04/30/19 @ 12:54 by Katelyn Grey PA-C) Incarcerated ventral hernia (Acute) Ischemic necrosis of small bowel (Acute) Drug induced neutropenia (Resolved) Lower extremity deep venous thrombosis (Resolved) Ovarian epithelial cancer (Resolved) Pulmonary embolism, bilateral (Resolved) I am following this patient in conjunction with Dr. Main. Impression: S/p Exploratory laparotomy. Resection of necrotic small bowel. Repair of incisional ventral hernia - Increase to full liquids - Ambulation and I.S. - WBC returned to normal. Will stop IV antibiotics - We will continue to monitor this patient - Probable discharge tomorrow Code Visit Inpatient E&M: 20351 Subs Hosp L1 - No charge
--- NOTE | 2019-05-02 07:46 | PCM.PN.HOSP ---
Patient Problems: Active and Suspected Problems (Last Reviewed 04/30/19 @ 12:54 by Katelyn Grey PA-C) Incarcerated ventral hernia (Acute) Ischemic necrosis of small bowel (Acute) Subjective: Patient was seen and examined. She went into urinary retention yesterday. Had to be straight cathed. She also reportedly had a reaction to the IV antibiotics, clindamycin added to her list of allergies. Patient states she has a history of post-op urine retention especially in previous surgery for the pelvic metastasis. She denied any fever or chills or nausea vomiting. She has not been able to ambulate much today because of numbness and tingling in her feet from her neuropathy. Her family will bring her some shoes. Rest of ROS is negative. Objective: Physical Exam: Gen:Comfortable, obese, not pale, not jaundiced, alert oriented x3 CVS:HS I +II, regular, no murmurs RESP: Diminished at lung bases GI: BS present and normal, midline dressing clean, dry, abdominal binder present, tenderness over the incisional areas EXT:No edema Vitals/I&O's: Vital Signs Temp Pulse Resp BP Pulse Ox 97.9 F 77 18 154/53 H 99 05/02/19 01:50 05/02/19 01:50 05/02/19 01:50 05/02/19 01:50 05/02/19 01:50 Oxygen Delivery Method Room Air Weight: 104.326 kg Body Mass Index (BMI) 38.2 Finger Stick Blood Glucose 176 Intake and Output for Last 24 Hours 04/30/19 05/01/19 05/02/19 23:59 23:59 23:59 Intake Total 2050 / 3065 2977 / 5104 2887 / 2887 Output Total 325 / 625 775 / 1725 2155 / 2155 Balance 1725 / 2440 2202 / 3379 732 / 732 Laboratory Results 05/01/19 08:00: WBC 12.2 H, RBC 4.43, Hgb 11.4 L, Hct 35.6 L, MCV 80.4 L, MCH 25.7 L, MCHC 32.0, RDW Std Deviation 48.2 H, RDW Coeff of Jose 16.7 H, Plt Count 213, MPV 9.9, Immature Gran % (Auto) 0.300, Neut % (Auto) 81.1 H, Lymph % (Auto) 9.5 L, [place] % (Auto) 8.9, Eos % (Auto) 0.1, Baso % (Auto) 0.1, Absolute Neuts (auto) 9.9 H, Absolute Lymphs (auto) 1.16, Nucleated RBC % 0 05/01/19 08:00: Sodium 136, Potassium 4.6, Chloride 106, Carbon Dioxide 23.0, Anion Gap 7, BUN 29 H, Creatinine 1.49 H, Estim Creat Clear Calc 27.55, Est GFR (MDRD) Af Amer 43 L, Est GFR (MDRD) Non-Af 36 L, BUN/Creatinine Ratio 19.5, Glucose 113 H, Calcium 8.1 L 05/01/19 13:35: Random Gentamicin 1.6 05/02/19 05:55: WBC 8.1, RBC 3.54 L, Hgb 9.2 L, Hct 28.9 L, MCV 81.6, MCH 26.0 L, MCHC 31.8 L, RDW Std Deviation 50.3 H, RDW Coeff of Jose 16.8 H, Plt Count 144 L, MPV 9.3, Immature Gran % (Auto) 0.600, Neut % (Auto) 76.9 H, Lymph % (Auto) 11.9 L, [place] % (Auto) 9.5, Eos % (Auto) 0.9, Baso % (Auto) 0.2, Absolute Neuts (auto) 6.2, Absolute Lymphs (auto) 0.97, Nucleated RBC % 0 05/02/19 05:55: Sodium 141, Potassium 4.0, Chloride 108 H, Carbon Dioxide 27.0, Anion Gap 6, BUN 23 H, Creatinine 1.28 H, Estim Creat Clear Calc 32.07, Est GFR (MDRD) Af Amer 52 L, Est GFR (MDRD) Non-Af 43 L, BUN/Creatinine Ratio 18.0, Glucose 101, Calcium 8.1 L Current Medications Acetaminophen (Tylenol) 650 mg PO Q6H PRN PRN PRN Reason: Mild Pain (1-3)/Temp > 100.7 F Last Admin: 05/01/19 15:41 Dose: 650 mg Documented by: Carvedilol (Coreg) 12.5 mg PO BID KURTIS Last Admin: 05/01/19 21:44 Dose: 12.5 mg Documented by: Enoxaparin Sodium (Lovenox) 40 mg SC DAILY@1000 [facility] Last Admin: 05/01/19 07:46 Dose: 40 mg Documented by: Fluticasone Propionate (Flonase Nasal [place]) 2 spray NASAL DAILY [facility] Last Admin: 05/01/19 07:46 Dose: 2 spray Documented by: Gentamicin Sulfate 290 mg/ (Dextrose) 57.25 mls @ 100 mls/hr IVPB RX TO DOSE ONE Stop: 04/30/19 17:43 Lactated Ringer's () 1,000 mls @ 125 mls/hr IV .Q8H [facility] Last Admin: 05/02/19 06:23 Dose: 125 mls/hr Documented by: Aztreonam 0.5 gm/ Dextrose 50 mls @ 150 mls/hr IV Q8 [facility] Last Admin: 05/02/19 06:23 Dose: 150 mls/hr Documented by: Levothyroxine Sodium (Synthroid) 75 mcg PO DAILY@0600 [facility] Last Admin: 05/02/19 06:23 Dose: 75 mcg Documented by: Lisinopril (Zestril) 20 mg PO BID [facility] Last Admin: 05/01/19 21:44 Dose: 20 mg Documented by: Morphine Sulfate () 4 mg IV Q3H PRN PRN PRN Reason: Severe pain (7-10/10) Ondansetron HCl (Zofran) 4 mg IV Q8H PRN PRN PRN Reason: NAUSEA/VOMITING Last Admin: 04/30/19 17:23 Dose: 4 mg Documented by: Oxycodone HCl (Oxyir) 5 mg PO Q4H PRN PRN PRN Reason: Moderate Pain (4-6/10) Pantoprazole Sodium (Protonix) 20 mg PO DAILY [facility] Last Admin: 05/01/19 07:47 Dose: 20 mg Documented by: Prochlorperazine Edisylate (Compazine Iv) 5 mg IV Q4H PRN PRN PRN Reason: Breakthrough nausea/vomiting Last Admin: 04/30/19 22:28 Dose: 5 mg Documented by: Sodium Chloride () 10 - 40 ml IV UD PRN PRN Reason: SALINE FLUSH Last Admin: 05/02/19 06:23 Dose: 30 ml Documented by: Medical Necessity - Tobacco Use Smoking Status: Never smoker Assessment/Plan All Active Problems (Last Reviewed 04/30/19 @ 12:54 by Katelyn Grey PA-C) Incarcerated ventral hernia (Acute) Ischemic necrosis of small bowel (Acute) Drug induced neutropenia (Resolved) Lower extremity deep venous thrombosis (Resolved) Ovarian epithelial cancer (Resolved) Pulmonary embolism, bilateral (Resolved) 1. POD #2, status post exploratory laparotomy, resection of necrotic small bowel, repair of incisional ventral hernia, Pain is controlled, tolerating advancement in her diet, continue per surgical recommendations. 2. Acute allergic reaction to clindamycin, resolving; she had erythema of the skin Clindamycin added to allergy list 3. Microcytic anemia, secondary to acute blood loss, drop in hemoglobin from 13.9-9.2, will start on p.o. iron 4. Paroxysmal atrial flutter, rate controlled, continue on carvedilol 5. CKD stage III, stable 6. Hypertension, controlled on lisinopril, carvedilol 7. Hypothyroidism, on Synthroid 8. History of ovarian CA with pelvic mets, in remission 9. Obesity, BMI 38.3, lifestyle modification recommended 10. DVT PPx- Lovenox Code Visit Inpatient E&M: 05483 Subs Hosp L2
[2019-05-02 08:06] VITALS: O2SAT 96
[2019-05-02] MEDS: Fluticasone 0.05% 1 SPRAY NASAL.SRY 2 SPRAY NASAL (08:52)
[2019-05-02 08:57] VITALS: BP 147/67; PULSE 71; RESP 18; TEMP 36.9; O2SAT 99
[2019-05-02] MEDS: Pantoprazole Sodium 20 MG Tablet PO (09:01)
[2019-05-02] MEDS: Lisinopril 20 MG Tablet PO ×2 (09:01→21:23)
[2019-05-02] MEDS: Enoxaparin 40 MG/0.4 ML Syringe SC (09:01)
[2019-05-02] MEDS: Carvedilol 12.5 MG Tablet PO ×2 (09:01→21:23)
--- NOTE | 2019-05-02 10:34 | CASEMGMT ---
Social Work Note SW met with pt to complete advanced directives. Pt's brother Calos present in room. Pt gave this worker permission to speak to her in front of her brother. Pt states that she would like her bother Calos to be HCPOA. Pt completed HCPOA, denied wanting to complete LW at this time. SW provided pt with original and placed copy on pt's chart. Jazmin Garcia MILITARY PAY TECHNICIAN, EXPLOSIVE ORDNANCE TECHNICIAN
[2019-05-02] MEDS: Tamsulosin HCl 0.4 MG Capsule PO ×2 (12:33→21:23)
[2019-05-02 15:38] LABS: Gentamicin, Random 0.2 ug/mL
[2019-05-02 15:52] VITALS: BP 128/53; PULSE 72; RESP 18; TEMP 37.2; O2SAT 99
--- NOTE | 2019-05-02 16:31 | CON.PCM_ITS ---
Problem List (1) Urinary retention with incomplete bladder emptying Status: Acute (2) Arthritis Status: Chronic Reason for Consult Date of Consultation: 05/02/19 Reason for Consultation: Urinary retention, incomplete bladder emptying History of Present Illness: The patient is a 78 year old F who is currently admitted status post resection of an incarcerated hernia. She has had multiple abdominal surgical interventions including a few bowel resections and a resection for ovarian cancer with complete exoneration. She has had difficulty urinating in the past after some of her surgeries. Prior to this admission she has been voiding between 5 and 10 times during the day with occasional nocturia. Usually she gets up just to take her allergy medication not to due to the urge to void. She does report that the only time she tends to leak is if she sleeps and does not awaken to the urge to void. Does not wear pads during the day. She does not have issues with urinary tract infections and has never had hematuria. She does not have issues with vaginal infections. She gets pelvic exams every 3 months by repairer engine production/onc and is not aware of any evidence of pelvic organ prolapse. Is not sexually active. Is just started on Flomax and feels that it is already started to work. She feels her stream is more significant and that she is emptying more completely since being on the medication. She has no signs or symptoms of a urinary tract infection including dysuria, hematuria or increased urgency and frequency at the present time. Of note, she also does have a history of arthr itis of the spine. Past Medical History Past Medical History (Chronic Problems): Chronic Problems (Last Reviewed 04/30/19 @ 12:54 by Katelyn Grey PA-C) History of ovarian cancer in adulthood (Chronic) Paroxysmal atrial flutter (Chronic) Essential hypertension (Chronic) Neuropathy (Chronic) Bilateral edema of lower extremity (Chronic) Iron deficiency anemia, unspecified (Chronic) Intestinal malabsorption, unspecified (Chronic) Cardiomyopathy in disease classified elsewhere (Chronic) Paroxysmal atrial fibrillation (Chronic) Hypothyroidism (Chronic) Arthritis (Chronic) Medical History: Medical History (Last Reviewed 05/02/19 @ 16:35 by Alma Anders MD) Paroxysmal atrial flutter (Chronic) I48.92 Essential hypertension (Chronic) I10 Iron deficiency anemia, unspecified (Chronic) D50.9 Intestinal malabsorption, unspecified (Chronic) K90.9 Cardiomyopathy in disease classified elsewhere (Chronic) I43 Paroxysmal atrial fibrillation (Chronic) I48.0 Arthritis (Chronic) M19.90 Anemia D64.9 Chronic nephritic syndrome N03.9 Hemorrhoid K64.9 History of squamous cell carcinoma Z85.89 Osteoarthritis M19.90 Ovarian cancer C56.9 med port placement Cardiac murmur R01.1 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 GERD (gastroesophageal reflux disease) K21.9 History of colon cancer Z85.038 Hypothyroidism E03.9 Atrial flutter, chronic I48.92 CATARACT SURGERY 2017 HTN (hypertension) (Inactive) I10 Allergies Penicillins Allergy (Severe, Verified 04/30/19 12:48) Hives Sulfa (Sulfonamide Antibiotics) Adverse Reaction (Severe, Verified 04/30/19 12:48) Nausea/Vom/Diarrhea clindamycin Adverse Reaction (Verified 05/02/19 04:21) Swelling Home Medications: Ambulatory Orders Medication Instructions Recorded [place]-3 Fatty Acids/Fish Oil 1 ea PO TID 06/07/18 [[place] 3 1,000 mg Softgel] carvedilol 12.5 mg tablet 12.5 mg PO BID #180 tab 06/18/18 coenzyme Q10 10 mg capsule 10 mg PO DAILY 06/18/18 omeprazole 20 mg-sodium 1 cap PO DAILY cap 09/12/18 bicarbonate 1.1 gram capsule enalapril maleate 20 mg tablet 20 mg PO BID #180 tab 10/01/18 aller-chor 1 tablet PO Q4H PRN PRN 01/07/19 fluticasone propionate 50 2 spray INTRANASAL BID 01/07/19 mcg/actuation nasal spray,suspension levothyroxine 75 mcg tablet 75 mcg PO DAILY #90 tab 04/08/19 Surgical History: Surgical History (Last Reviewed 05/02/19 @ 16:35 by Alma Anders MD) History of bowel resection Z98.890, Z90.49 02/27/18 H/O: hysterectomy Z98.890, Z90.710 2017 Hx of appendectomy Z90.49 S/P cataract extraction Z98.49 S/P colectomy Z90.49 2007 S/P skin cancer resection Z98.890 Status post colon resection Z90.49 Surgical History: hysterectomy, - - Partial bowel resection. Colostomy and later takedown. 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 History: ovarian cancer - History of Lives: Spouse/ Significant Other Smoking Status: Never smoker Alcohol: None Drugs: None - *Family History Maternal Family History: Family History (Last Reviewed 05/02/19 @ 16:36 by Alma Anders MD) Mother Colon cancer Heart disease Hypertension Father Kidney disease Myocardial infarction Brother Cancer History Items: No pertinent history Paternal Family History: Family History (Last Reviewed 05/02/19 @ 16:36 by Alma Anders MD) Mother Colon cancer Heart disease Hypertension Father Kidney disease Myocardial infarction Brother Cancer History Items: No pertinent history Review of Systems Constitutional: Denies: Chills, Fever Eyes: Denies: Vision Change HEENT: Denies: Difficulty Swallowing Cardiovascular: Denies: Chest Pain Respiratory: Denies: Shortness of Breath Gastrointestinal: Reports: Abdominal Pain - post operative appropriate. Denies: Vomiting Genitourinary: Reports: Hesitancy, Incontinence, Retention. Denies: Dysuria, Frequency, Hematuria, Nocturia, Urgency Gynecological: Denies: Sexual concerns Musculoskeletal: Denies: Muscle pain Skin: Denies: Rash Patient Problems: Active and Suspected Problems (Last Reviewed 04/30/19 @ 12:54 by Katelyn Grey PA-C) Incarcerated ventral hernia (Acute) Ischemic necrosis of small bowel (Acute) Urinary retention with incomplete bladder emptying (Acute) - Physical Exam General: Alert, Oriented x3, Cooperative, No apparent distress HEENT: Atraumatic, Normocephalic Oral: Moist Mucosa Neck: Supple Lungs: Normal air movement Cardiovascular: Regular rate Skin: No rashes Musculoskeletal: No Muscle Wasting Neurological: Cranial nerves II-XII grossly intact Psych/Mental Status: Normal Affect Vital Signs Temp Pulse Resp BP Pulse Ox 99.0 F 72 18 128/53 H 99 05/02/19 15:52 05/02/19 15:52 05/02/19 15:52 05/02/19 15:52 05/02/19 15:52 Oxygen Delivery Method Room Air Weight: 104.326 kg Body Mass Index (BMI) 38.2 Finger Stick Blood Glucose 176 Intake and Output for Last 24 Hours 04/30/19 05/01/19 05/02/19 23:59 23:59 23:59 Intake Total 2050 / 3065 2977 / 5104 4184 / 4184 Output Total 325 / 625 775 / 1725 2755 / 2755 Balance 1725 / 2440 2202 / 3379 1429 / 1429 Laboratory Tests Past 24 Hrs 05/02/19 05/02/19 05/02/19 05:55 05:55 13:50 WBC 8.1 RBC 3.54 L Hgb 9.2 L Hct 28.9 L MCV 81.6 MCH 26.0 L MCHC 31.8 L RDW Std Deviation 50.3 H RDW Coeff of Jose 16.8 H Plt Count 144 L MPV 9.3 Immature Gran % (Auto) 0.600 Neut % (Auto) 76.9 H Lymph % (Auto) 11.9 L [place] % (Auto) 9.5 Eos % (Auto) 0.9 Baso % (Auto) 0.2 Absolute Neuts (auto) 6.2 Absolute Lymphs (auto) 0.97 Nucleated RBC % 0 Sodium 141 Potassium 4.0 Chloride 108 H Carbon Dioxide 27.0 Anion Gap 6 BUN 23 H Creatinine 1.28 H Estim Creat Clear Calc 32.07 Est GFR (MDRD) Af Amer 52 L Est GFR (MDRD) Non-Af 43 L BUN/Creatinine Ratio 18.0 Glucose 101 Calcium 8.1 L Random Gentamicin 0.2 Assessment/Plan All Active Problems (Last Reviewed 04/30/19 @ 12:54 by Katelyn Grey PA-C) Incarcerated ventral hernia (Acute) Ischemic necrosis of small bowel (Acute) Urinary retention with incomplete bladder emptying (Acute) Drug induced neutropenia (Resolved) Lower extremity deep venous thrombosis (Resolved) Ovarian epithelial cancer (Resolved) Pulmonary embolism, bilateral (Resolved) Urinary retention s/p surgical intervention for incarceration of bowel Urine culture Continue Flomax for now Follow-up in the office in 1 week for repeat postvoid residual. If the residual is normal, I will stop the Flomax at that visit. She is ok for discharge tomorrow without catheter. Thank you for the consult!
[2019-05-02 21:11] VITALS: BP 130/49; PULSE 77; RESP 16; TEMP 37.2; O2SAT 98
[2019-05-03 02:16] VITALS: BP 141/45; PULSE 68; RESP 16; TEMP 36.6; O2SAT 97
[2019-05-03] MEDS: Levothyroxine 75 MCG Tablet PO (05:18)
[2019-05-03] MEDS: Lactated Ringers 1,000 ML 125 ML IV (05:18)
--- NOTE | 2019-05-03 05:25 | NURSING ---
pt reports passing flatus numerous times in night
[2019-05-03 07:23] VITALS: O2SAT 96
--- NOTE | 2019-05-03 07:35 | DCINST_ITS ---
Discharge Diet: Light diet - advance as tolerated Discharge Activity: Return to Normal Activity, May Drive - when you are no longer taking narcotic pain medications., May Shower - with the bandage in place 1-2 days after surgery. Lifting Restrictions: 20 pounds for 8 weeks. Additional Activity Instructions:: Climbing stairs is fine, walking is encouraged. Sitting in bed may be uncomfortable. Sitting up using your lateral muscles (sitting up sideways) is usually more comfortable. Do not drive, work heavy equipment of sign legal documents for 24 hours. If your hernia repair was an ingunial repair, you may have scrotal swelling, an ice pack and/or athletic support can provide more comfort. Pain medications may cause nausea, you should typically eat light foods as you take your pain medications. Pain medications may also cause constipation. If you have difficulty with this, discuss with your doctor. Call your doctor if your incision/area has: Continuous Slow Oozing, Sudden Increased Bleeding, Increased Pain/ Swelling, Increased Redness, Foul Smelling Discharge Call your doctor if you observe: Fever of 101 or Higher Suture Line Care: Avoid Pulling/Pushing, Avoid Pinching/Bending Additional Dressing/Incision Instructions:: Leave the operative bandage on for 2-3 days. When you remove the bandage, leave the steri-strips on place until your follow up appointment or they fall off. Allergies/Adverse Reactions: Allergies Penicillins Allergy (Severe, Verified 04/30/19 12:48) Hives Sulfa (Sulfonamide Antibiotics) Adverse Reaction (Severe, Verified 04/30/19 12:48) Nausea/Vom/Diarrhea clindamycin Adverse Reaction (Verified 05/02/19 04:21) Swelling Medications to take at Discharge [place]-3 Fatty Acids/Fish Oil [[place] 3 1,000 mg Softgel] 1 ea PO TID 06/07/18 carvedilol 12.5 mg tablet 12.5 mg PO BID #180 tab 06/18/18 coenzyme Q10 10 mg capsule 10 mg PO DAILY 06/18/18 omeprazole 20 mg-sodium bicarbonate 1.1 gram capsule 1 cap PO DAILY cap 09/12/18 enalapril maleate 20 mg tablet 20 mg PO BID #180 tab 10/01/18 aller-chor 1 tablet PO Q4H PRN PRN 01/07/19 fluticasone propionate 50 mcg/actuation nasal spray,suspension 2 spray INTRANASAL BID 01/07/19 levothyroxine 75 mcg tablet 75 mcg PO DAILY #90 tab 04/08/19 Oxycodone HCl/Acetaminophen [Percocet 5/325] 1 - 2 tab PO Q4H PRN PRN 6 Days #30 tab 05/03/19 The following prescriptions were given: Oxycodone HCl/Acetaminophen [Percocet 5/325] 1 - 2 tab PO Q4H PRN PRN 6 Days #30 tab PRN Reason: Pain Prescription Printed Primary Care Physician: Lisa Combs MD [Primary Care Provider] - Test Results: Test results from this visit will be discussed in further detail at your follow- up appointment, if applicable. Please Follow Up With: Shay Main MD - [phone] When: Plan to have a follow up appointment in 7 days. Call to schedule.
[2019-05-03 07:47] VITALS: BP 146/48; PULSE 66; RESP 18; TEMP 36.6; O2SAT 100
--- NOTE | 2019-05-03 09:23 | PCM.PN.HOSP ---
Patient Problems: Active and Suspected Problems (Last Reviewed 05/02/19 @ 16:35 by Alma Anders MD) Incarcerated ventral hernia (Acute) Ischemic necrosis of small bowel (Acute) Urinary retention with incomplete bladder emptying (Acute) Objective: Physical Exam: Gen:Comfortable, obese, not pale, not jaundiced, alert oriented x3 CVS:HS I +II, regular, no murmurs RESP: Diminished at lung bases GI: BS present and normal, midline dressing clean, dry, abdominal binder present EXT:No edema Vitals/I&O's: Vital Signs Temp Pulse Resp BP Pulse Ox 97.9 F 66 66 H 146/48 H 100 05/03/19 07:47 05/03/19 07:47 05/03/19 07:47 05/03/19 07:47 05/03/19 07:47 Oxygen Delivery Method Room Air Weight: 104.326 kg Body Mass Index (BMI) 38.2 Finger Stick Blood Glucose 176 Intake and Output for Last 24 Hours 05/01/19 05/02/19 05/03/19 23:59 23:59 23:59 Intake Total 2977 / 5104 4982 / 6109 1909 / 1909 Output Total 775 / 1725 3305 / 4105 1400 / 1400 Balance 2202 / 3379 1676 / 2003 510 / 510 Laboratory Results 05/02/19 13:50: Random Gentamicin 0.2 Current Medications Acetaminophen (Tylenol) 650 mg PO Q6H PRN PRN PRN Reason: Mild Pain (1-3)/Temp > 100.7 F Last Admin: 05/01/19 15:41 Dose: 650 mg Documented by: Carvedilol (Coreg) 12.5 mg PO BID [facility] Last Admin: 05/02/19 21:23 Dose: 12.5 mg Documented by: Docusate Sodium (Colace) 100 mg PO DAILY PRN PRN PRN Reason: Constipation Enoxaparin Sodium (Lovenox) 40 mg SC DAILY@1000 [facility] Last Admin: 05/02/19 09:01 Dose: 40 mg Documented by: Ferrous Sulfate (Ferrous Sulfate) 325 mg PO DAILY@1200 [place] Fluticasone Propionate (Flonase Nasal [place]) 2 spray NASAL DAILY [facility] Last Admin: 05/02/19 08:52 Dose: 2 spray Documented by: Heparin Sodium (Beef Lung) () 50 units IV UD PRN PRN Reason: HEPARIN FLUSH Levothyroxine Sodium (Synthroid) 75 mcg PO DAILY@0600 [facility] Last Admin: 05/03/19 05:18 Dose: 75 mcg Documented by: Lisinopril (Zestril) 20 mg PO BID [facility] Last Admin: 05/02/19 21:23 Dose: 20 mg Documented by: Morphine Sulfate () 4 mg IV Q3H PRN PRN PRN Reason: Severe pain (7-10/10) Ondansetron HCl (Zofran) 4 mg IV Q8H PRN PRN PRN Reason: NAUSEA/VOMITING Last Admin: 04/30/19 17:23 Dose: 4 mg Documented by: Oxycodone HCl (Oxyir) 5 mg PO Q4H PRN PRN PRN Reason: Moderate Pain (4-6/10) Pantoprazole Sodium (Protonix) 20 mg PO DAILY [facility] Last Admin: 05/02/19 09:01 Dose: 20 mg Documented by: Prochlorperazine Edisylate (Compazine Iv) 5 mg IV Q4H PRN PRN PRN Reason: Breakthrough nausea/vomiting Last Admin: 04/30/19 22:28 Dose: 5 mg Documented by: Sodium Chloride () 10 - 40 ml IV UD PRN PRN Reason: SALINE FLUSH Last Admin: 05/02/19 14:11 Dose: 20 ml Documented by: Sodium Chloride () 10 - 40 ml IV UD PRN PRN Reason: VAD FLUSH Tamsulosin HCl (Flomax) 0.4 mg PO BID [facility] Last Admin: 05/02/19 21:23 Dose: 0.4 mg Documented by: Medical Necessity - Tobacco Use Smoking Status: Never smoker Assessment/Plan All Active Problems (Last Reviewed 05/02/19 @ 16:35 by Alma Anders MD) Incarcerated ventral hernia (Acute) Ischemic necrosis of small bowel (Acute) Urinary retention with incomplete bladder emptying (Acute) Drug induced neutropenia (Resolved) Lower extremity deep venous thrombosis (Resolved) Ovarian epithelial cancer (Resolved) Pulmonary embolism, bilateral (Resolved) 1. POD #3, status post exploratory laparotomy, resection of necrotic small bowel, repair of incisional ventral hernia, Pain is controlled, tolerating advancement in her diet, continue per surgical recommendations. 2. Acute allergic reaction to clindamycin, resolving; she had erythema of the skin Clindamycin added to allergy list 3. Microcytic anemia, secondary to acute blood loss, drop in hemoglobin from 13.9-9.2, on p.o. iron 4. Paroxysmal atrial flutter, rate controlled, continue on carvedilol 5. CKD stage III, stable 6. Hypertension, controlled on lisinopril, carvedilol 7. Hypothyroidism, on Synthroid 8. History of ovarian CA with pelvic mets, in remission 9. Obesity, BMI 38.3, lifestyle modification recommended 10. DVT PPx- Lovenox Code Visit Inpatient E&M: 59446 Subs Hosp L2
[2019-05-03] MEDS: Fluticasone 0.05% 1 SPRAY NASAL.SRY 2 SPRAY NASAL (09:48)
[2019-05-03] MEDS: Carvedilol 12.5 MG Tablet PO (09:49)
[2019-05-03] MEDS: Pantoprazole Sodium 20 MG Tablet PO (09:50)
[2019-05-03] MEDS: Lisinopril 20 MG Tablet PO (09:50)
[2019-05-03] MEDS: Tamsulosin HCl 0.4 MG Capsule PO (09:50)
[2019-05-03] MEDS: 0.9% NaCl Peripheral Flush Adult/Peds IV (09:57)
[2019-05-03 10:39] VITALS: BP 146/48; PULSE 66; RESP 18; TEMP 36.6; O2SAT 100
--- NOTE | 2019-05-06 14:37 | CASEMGMT ---
[facility] PHONE CALL DC DATE: Disposition: Home Diagnosis on Discharge: Incarcerated Ventral Hernia with ischemic necrosis of small bowel LACE/STRATA: 07/28 Attempted call to home phone. no answer and no message machine. Mounika WILKES RN [facility]
== END 2019-05-03 10:39 | disposition home or self-care (01) | DRG 329 ==
LOC: ED 11:16 → PCU 11:39 → ED 11:52 → SDC 11:57 → PCU 11:59 → SDC 13:21 → PCU 13:23 → MS3 05-01 07:08 → PCU 05-01 09:24
PROVIDERS: Admitting Provider Surgery; Emergency Provider Emergency Medicine; Family Provider Internal Medicine; PCP Internal Medicine; Referring Provider Surgery; Visit Provider Internal Medicine
PROC: 0WQF0ZZ Repair Abdominal Wall, Open Approach (ICD-10-PCS; principal; 2019-04-30 10:45)
DX: K43.0 Incisional hernia with obstruction, without gangrene (principal); K55.029 Acute infarction of small intestine, extent unspecified; I48.92 Unspecified atrial flutter; D62 Acute posthemorrhagic anemia; R33.9 Retention of urine, unspecified; E03.9 Hypothyroidism, unspecified; E66.9 Obesity, unspecified; N18.3 Chronic kidney disease, stage 3 (moderate); I12.9 Hypertensive chronic kidney disease with stage 1 through stage 4 chronic kidney disease, or unspecified chronic kidney disease; L27.0 Generalized skin eruption due to drugs and medicaments taken internally; T36.8X5A Adverse effect of other systemic antibiotics, initial encounter; Z68.38 Body mass index [BMI] 38.0-38.9, adult; Z90.722 Acquired absence of ovaries, bilateral; Z90.79 Acquired absence of other genital organ(s); Z90.710 Acquired absence of both cervix and uterus; Z90.49 Acquired absence of other specified parts of digestive tract; Z86.711 Personal history of pulmonary embolism; Z85.43 Personal history of malignant neoplasm of ovary
CPT/HCPCS: 36415; 71045; 74177; 80048; 80053; 80170; 81001; 82962; 83690; 84484; 85025; 87086; 88307; 93005; 97162; 97166; 99285; J7030; J7120; Q9967; A4216; J2405; J3490

== ENCOUNTER → 2019-10-08 13:25 | Outpatient (CLI) | payer MEDICARE, OTHER, SELFPAY ==
[2019-10-07 13:24] VITALS: BMI 38.2
--- NOTE | 2019-10-08 13:27 | RAD_ITS ---
STUDY: X-RAY - PELVIS AND RIGHT HIP REASON FOR EXAM: Right hip pain for one week, no specific injury. TECHNIQUE: 2 views of the pelvis and hip. COMPARISON: CT abdomen/pelvis 04/30/2019. FINDINGS: There is a small calcification at the superior aspect of the right greater trochanter unchanged since CT of the abdomen/pelvis in April 2019. There are surgical clips in the pelvis. Normal bilateral iliac wings, sacroiliac joints and visualized sacrum. Normal bilateral superior and inferior pubic rami. Normal pubic symphysis. Normal bilateral ischial tuberosities. Normal visualized femoral head. Normal acetabulum. Normal hip joint. RAD/HIP, UNI W/ Pelvis 2-3 Views IMPRESSION: Small calcification at the superior aspect of the right greater trochanter. Otherwise, unremarkable x-ray examination of the pelvis and right hip. Electronically Signed: Troy Flowers MD at 11:29 EST Tel , Service support ,
== END ==
PROVIDERS: Family Provider Internal Medicine; PCP Internal Medicine; Referring Provider Internal Medicine; Visit Provider Internal Medicine
DX: M25.551 Pain in right hip (principal)
CPT/HCPCS: 73502

== ENCOUNTER → 2020-03-04 | Outpatient (CLI) | payer MEDICARE, OTHER, SELFPAY ==
[2020-03-04 13:12] VITALS: BMI 39.2
[2020-03-04 15:32] LABS: Bacteria 0 SEEN /hpf (None Seen); Mucous, Urine 0 SEEN /hpf (<or=2+)
[2020-03-04 17:20] LABS: Color, Urine Straw (Yellow); Glucose, Dipstick Normal (Normal); Ketone-Dipstick Negative (Negative); Leukocyte Esterase-Dipstick Negative /ul (Negative); Nitrite-Dipstick Negative (Negative); Occult Blood-Urine 25 /ul (Negative); Protein-Dipstick Negative (Negative); Specific Gravity, Urine 1.005 (1.002-1.030); Urine Bilirubin Dipstick Negative (Negative); Urine Clarity Clear (Clear); Urine Urobilinogen Normal (Normal)
[2020-03-04 18:36] LABS: Squamous Epithelial Cells - UA 0-5 SEEN /hpf (5-10)
[2020-03-04 18:37] LABS: White Blood Cells 0-5 SEEN /hpf (0-5)
[2020-03-04 18:38] LABS: Red Blood Cells-Urine 0-5 SEEN /hpf (0-5); Transitional Epithelial - Ur 0-5 SEEN /hpf (0-5)
== END | disposition home or self-care (01) ==
LOC: LABSPEC 15:18
PROVIDERS: PCP Internal Medicine; Referring Provider Internal Medicine; Visit Provider Internal Medicine
DX: R33.9 Retention of urine, unspecified (principal)
CPT/HCPCS: 81001

== ENCOUNTER → 2020-08-04 14:04 | Outpatient (CLI) | payer MEDICARE, OTHER, SELFPAY ==
[2020-08-04 13:11] VITALS: BMI 38.1
[2020-08-04 14:07] LABS: Mucous, Urine 0 SEEN /hpf (<or=2+)
[2020-08-04 15:22] LABS: Color, Urine Yellow (Yellow); Glucose, Dipstick Normal (Normal); Ketone-Dipstick Negative (Negative); Leukocyte Esterase-Dipstick 100 /ul (Negative); Nitrite-Dipstick Negative (Negative); Occult Blood-Urine 50 /ul (Negative); Protein-Dipstick 30 mg/dl (Negative); Urine Bilirubin Dipstick Negative (Negative); Urine Clarity Sl. Cloudy (Clear); Urine Urobilinogen Normal (Normal)
[2020-08-04 15:29] LABS: Bacteria 2+ /hpf (None Seen); Red Blood Cells-Urine 0-5 SEEN /hpf (0-5); Squamous Epithelial Cells - UA 0-5 SEEN /hpf (5-10); White Blood Cells 10-25 SEEN /hpf (0-5)
[2020-08-04 16:32] LABS: Anion Gap 7 (5-15); BUN 31 mg/dL (7-18); BUN/Creat Ratio 16.2 RATIO (10-20); Calcium,Total 9.2 mg/dL (8.5-10.1); Chloride 104 mmol/L (98-107); Cholesterol 227 mg/dL (200); Creatinine, Serum 1.91 mg/dL (0.55-1.02); EST Glomerular Filtration Rate 27 mL/min (>60); Est Glom Filt Rate - Afr Amer 33 mL/min (>60); Glucose 86 mg/dL (74-106); High Density Lipoprotein 47 mg/dL; Potassium 4.5 mmol/L (3.5-5.1); Sodium Level 137 mmol/L (136-145); Triglycerides 184 mg/dL; Very Low Density Lipoprotein 37 mg/dL (5-40)
== END ==
PROVIDERS: PCP Internal Medicine; Referring Provider Internal Medicine; Visit Provider Internal Medicine
DX: I10 Essential (primary) hypertension (principal); R39.15 Urgency of urination
CPT/HCPCS: 36415; 80048; 80061; 81001

== ENCOUNTER → 2020-09-30 | Outpatient (CLI) | payer MEDICARE, OTHER, SELFPAY ==
[2020-08-04 13:11] VITALS: BMI 38.1
[2020-09-30 11:27] LABS: Protein, Urine (Random) 13.5 mg/dL (<11.9); Protein:Creat Ratio 274 mg/g CRE (0-200)
== END | disposition home or self-care (01) ==
LOC: LABSPEC 10:41
PROVIDERS: PCP Internal Medicine; Visit Provider Internal Medicine Nephrology
DX: N17.9 Acute kidney failure, unspecified (principal); N18.4 Chronic kidney disease, stage 4 (severe); D50.9 Iron deficiency anemia, unspecified
CPT/HCPCS: 36591; 80069; 82570; 84156; 85027; A4216

== ENCOUNTER → 2020-10-02 12:33 | Outpatient (CLI) | payer MEDICARE, OTHER, SELFPAY ==
[2020-08-04 13:11] VITALS: BMI 38.1
--- NOTE | 2020-10-02 12:35 | US_ITS ---
STUDY: RENAL ULTRASOUND - COMPLETE REASON FOR EXAM: Female, 79 years old. ARF -- HX OF OV CA AND COMPLETE HYSTERECTOMY TECHNIQUE: Ultrasound evaluation of the kidneys was performed with real-time and static kevin-scale imaging. COMPARISON: None. FINDINGS: RIGHT KIDNEY: Normal location of the right kidney, which is normal in size. The right kidney measures 9.1 cm x 4.5 x 4.1 cm. There is a normal cortex of the right kidney. The renal cortex measures 1.2 cm. There is no right renal mass or cyst. There are no right renal calculi. There is evidence of a 4.9 cm x 3.1 centimeter x 2.8 cm soft tissue densities within the right renal pelvis. Correlation with the CT scan and IV contrast recommended. There is no right hydronephrosis. DISTAL RIGHT URETER: There is non-visualization of the distal right ureter. There is no demonstrated right ureterovesical junction calculus. There is a visualized right ureteral jet. LEFT KIDNEY: Normal location of the left kidney, which is normal in size. The left kidney measures 9.3 cm x 4.5 cm by 4.2 cm. There is a normal cortex of the left kidney. The renal cortex measures 1.1 cm. There is no left renal mass or cyst. There are no left renal calculi. There is no left hydronephrosis. DISTAL LEFT URETER: There is non-visualization of the distal left ureter. There is no demonstrated left ureterovesical junction calculus. There is a visualized left ureteral jet. BLADDER: The distended urinary bladder has a volume of 66 ml. There is a normal wall thickness of the distended urinary bladder. There is no demonstrated mass within the urinary bladder. There are no demonstrated bladder calculi. US/Kidney and Bladder IMPRESSION: 4.9 cm x 3.1 cm x 2.8 cm soft tissue mass in the right renal pelvis. Correlation with the CT scan following IV contrast recommended. Electronically Signed: Aric Barrera, at 14:09 EST , Service support ,
== END ==
PROVIDERS: PCP Internal Medicine; Referring Provider Internal Medicine Nephrology; Visit Provider Internal Medicine Nephrology
DX: N17.9 Acute kidney failure, unspecified (principal)
CPT/HCPCS: 76770

== ENCOUNTER → 2020-10-28 14:02 | Outpatient (CLI) | payer MEDICARE, OTHER, SELFPAY ==
[2020-10-15 13:52] VITALS: BMI 37.8
--- NOTE | 2020-10-28 14:03 | CT_ITS ---
STUDY: CT ABDOMEN AND PELVIS WITH CONTRAST REASON FOR EXAM: Female, 79 years old. RENAL PELVIC MASS RADIATION DOSAGE (If Supplied By Facility): CTDIvol = ( 20.54 ) mGy, DLP = ( 1912.76 ) mGycm TECHNIQUE: Transaxial images were obtained from the dome of the diaphragm to the symphysis pubis without oral contrast. IV 100mL Isovue-300 was administered. Sagittal and coronal images were reconstructed. Individualized dose optimization techniques were used for this CT. COMPARISON: Comparison is made with prior study dated 04/30/2019. FINDINGS: The visualized lung bases are unremarkable. The visualized portions of the heart are within normal limits. Normal liver. Normal gallbladder and extrahepatic biliary system. Normal spleen. Normal pancreas. Normal bilateral adrenal glands. Normal right kidney. Normal left kidney. Normal visualized stomach. Normal small intestine. Normal colon. The appendix is visualized and appears normal. There is diffuse atherosclerotic calcification of the abdominal aorta, without a demonstrated aneurysm. Normal inferior vena cava. Normal retroperitoneum. Normal urinary bladder. The patient is status post anterior ventral hernia repair. There now is evidence of a 5.6 cm by 12.3 cm x 13.8 cm fluid collection in the deep subcutaneous tissue at the level of the umbilicus. This most likely represents a postoperative seroma. Normal osseous structures. CT/Abdomen/Pelvis WITH Contrast IMPRESSION: Postoperative anterior abdominal wall hernia repair with evidence of a 5.6 cm x 12.3 cm x 13.8 cm fluid collection deep in the subcutaneous tissues suggestive of postoperative seroma. Electronically Signed: Aric Barrera MD at 14:54 EST , Service support ,
[2020-10-28] MEDS: 0.9% Saline Lock 10 ML Syringe IV (14:35)
== END ==
PROVIDERS: PCP Internal Medicine; Referring Provider Internal Medicine Medical Oncology; Visit Provider Internal Medicine Medical Oncology
DX: N28.89 Other specified disorders of kidney and ureter (principal); Z85.43 Personal history of malignant neoplasm of ovary
CPT/HCPCS: 36415; 74177; 80069; 81001; 83970; 86304; 88108; 88313; 96523; Q9967; A4216

== ENCOUNTER → 2020-12-17 07:42 | Outpatient (CLI) | payer MEDICARE, OTHER, SELFPAY ==
[2020-10-15 13:52] VITALS: BMI 37.8
--- NOTE | 2020-12-17 07:49 | CT_ITS ---
PROCEDURE: CT DIRECTED ABSCESS DRAINAGE, PERITONEAL DATE OF EXAMINATION: 12/17/2020. INDICATION: Female, 79 years old. Anterior abdominal wall fluid collection. PHYSICIAN: Aric Barrera M.D. CONSENT: Written informed consent was obtained having explained the risks, benefits and alternatives in detail with the patient who accepted the risks and agreed to proceed. Laboratory review and clinical assessment was performed. RADIATION DOSAGE (If Supplied By Facility): CTDIvol = ( 27.5 ) mGy, DLP = ( 1324.53 ) mGycm TECHNIQUE: CT sections were made through the abdomen and pelvis revealing an anterior abdominal wall fluid collection . The skin surface was prepped and draped in a sterile fashion. Puncture of this collection was performed with a 8 [place] catheter and fluid was aspirated. Drainage catheter was then inserted into the collection and formed into position. Additional fluid was aspirated for a total of approximately 85 cc of serosanguineous fluid. CT/Biopsy/Inj or Needle Placement IMPRESSION: 1. CT directed drainage of a fluid collection using CT image guidance and image documentation as described. Electronically Signed: Aric Barrera MD at 10:03 EDT , Service support ,
[2020-12-17 08:12] VITALS: BP 116/73; PULSE 60; RESP 16; TEMP 36.9; O2SAT 96; BMI 37.3
[2020-12-17 08:20] VITALS: BP 136/54; PULSE 62; RESP 19; O2SAT 97
[2020-12-17 08:50] LABS: Absolute Lymphocyte Count 0.88 X10^3/uL (0.83-4.51); Absolute Neutrophil Count 3.9 X10^3/uL (2.0-7.7); Basophil# 0.03 X10^3/uL; Basophil% 0.6 % (0-1); Eosinophils% 3.7 % (0-5); Hemoglobin 11.9 g/dL (12.0-15.0); Lymphocyte # 0.88 X10^3/ul (4.0); Lymphocyte % 16.2 % (19-41); Mean Corp Hgb Conc 31.3 g/dL (32-36); Mean Corpuscular Hgb 26.7 pg (27.0-32.0); Mean Corpuscular Volume 85.2 fL (81-99); Mean Platelet Vol. 10.4 fl (6.2-12.0); Monocyte# 0.41 X10^3/uL; Monocyte% 7.6 % (0-10); NRBC Flagged by Analyzer 0 % (0-5); Neutrophil # 3.87 X10^3/uL (2.7-7.7); Neutrophil % 71.3 % (47-70); Platelet Count 187 K/mm3 (150-450); RBC Distribution Width CV 14.9 % (11.6-14.6); RBC Distribution Width SD 45.8 fl (35.1-43.9); Red Blood Count 4.46 M/mm3 (4.2-5.4); White Blood Count 5.4 K/mm3 (4.4-11.0)
[2020-12-17 09:00] LABS: International Normalized Ratio 1.1
[2020-12-17 09:01] LABS: Partial Thromboplast Time 28.7 Seconds (24.1-36.2)
[2020-12-17 09:05] LABS: Ferritin 15 ng/mL (8-252); Iron 56 ug/dL (50-170); Iron Binding Capacity,Total 315 ug/dL (250-450); LDH 139 U/L (84-246); PERCENT IRON SATURATION 17.8 % (15.0-55.0)
[2020-12-17 09:09] LABS: ALB/GLOB Ratio 0.9 RATIO (0.9-2.4); AST(SGOT) 15 U/L (15-37); Alanine Aminotransfer ALT/SGPT 16 U/L (13-56); Albumin, Serum 3.1 g/dL (3.2-5.0); Alkaline Phosphatase 75 U/L (45-117); Anion Gap 5 (5-15); BUN 27 mg/dL (7-18); BUN/Creat Ratio 22.7 RATIO (10-20); Calcium,Total 8.6 mg/dL (8.5-10.1); Chloride 106 mmol/L (98-107); Creatinine, Serum 1.19 mg/dL (0.55-1.02); EST Glomerular Filtration Rate 46 mL/min (>60); Est Glom Filt Rate - Afr Amer 56 mL/min (>60); Estimated Creatinine Clearance 33.93 ml/min; Globulin 3.4 g/dL (2.2-4.2); Glucose 105 mg/dL (74-106); Potassium 3.9 mmol/L (3.5-5.1); Protein, Total 6.5 g/dL (6.4-8.2); Sodium Level 140 mmol/L (136-145)
[2020-12-17 09:10] VITALS: BP 151/71; BP 161/80; BP 164/92; BP 171/107; PULSE 56; PULSE 64; RESP 12; RESP 13; RESP 14; RESP 15; O2SAT 98; O2SAT 99
[2020-12-17 09:45] VITALS: BP 171/71; PULSE 65; RESP 14; O2SAT 99
[2020-12-17] MEDS: 0.9% Saline Lock 10 ML Syringe IV (09:55)
[2020-12-17 10:03] VITALS: BP 158/68; PULSE 64; RESP 18; O2SAT 99
[2020-12-18 05:12] LABS: Cancer Antigen 125 10.1 U/mL (0.0-38.1)
== END ==
PROVIDERS: Internal Medicine Medical Oncology; PCP Internal Medicine
DX: K65.1 Peritoneal abscess (principal); C56.9 Malignant neoplasm of unspecified ovary; D50.9 Iron deficiency anemia, unspecified
CPT/HCPCS: 49406; 77012; 80053; 82728; 83540; 83550; 83615; 85025; 85610; 85730; 86304; J7040; A4216

== ENCOUNTER → 2022-03-01 | Outpatient (CLI) | payer MEDICARE, OTHER, SELFPAY ==
--- NOTE | 2022-03-01 12:53 | ECHOD_ITS ---
Reason For Study: Afib/Flutter Procedure This was a 2D Doppler, Color Flow transthoracic echocardiogram. The study was technically difficult. Exam performed in department. Left Ventricle Normal LV size. Left ventricular systolic function is normal. The estimated ejection fraction is 60 %. Diastolic function is indeterminate. No regional wall motion abnormalities noted. Right Ventricle Normal RV size. Normal systolic function. Atria The left atrium is mildly enlarged. Normal right atrium. No doppler evidence for ASD. Mitral Valve There is no mitral annular calcification. Normal mitral valve. Trivial mitral valve insufficiency. Tricuspid Valve Normal tricuspid valve. Trivial tricuspid valve insufficiency. Unable to estimate RV systolic pressure/pulmonary artery pressure due to technically difficult study. Aortic Valve Trisinus/trileaflet aortic valve. Normal aortic valve. Pulmonic Valve The pulmonic valve is not well visualized. Great Vessels The aortic root is not well visualized. Pericardium/Pleural No pericardial effusion. MMode/2D Measurements & Calculations LVIDd: 4.2 cm IVSd: 1.0 cm LA dimension: 3.9 cm LVIDs: 2.6 cm LVPWd: 0.92 cm RVDd: 3.4 cm FS: 37.9 % LAV(MOD-bp): 57.2 ml LA A4 area: 20.3 cm2 RA A4 area: 15.5 cm2 LAV(MOD-bp) Indexed: 26.9 ml/m2 LAV(MOD-sp2): 50.0 ml LAV(MOD-sp4): 56.3 ml Time Measurements MV dec time: 0.29 sec Doppler Measurements & Calculations MV E max bhaskar: 79.8 cm/sec Lat Peak E' Bhaskar: 7.7 cm/sec Med Peak E' Bhaskar: 6.8 cm/sec MV A max bhaskar: 91.7 cm/sec E/E' lat: 10.4 E/E' med: 11.8 MV E/A: 0.87 MV V2 max: 99.2 cm/sec MV P1/2t max bhaskar: 79.0 cm/sec Ao V2 max: 167.6 cm/sec MV max P.9 mmHg MV P1/2t: 107.4 msec Ao max P.2 mmHg MV V2 mean: 52.1 cm/sec MV dec slope: 215.4 cm/sec2 MV mean P.2 mmHg MVA(P1/2t): 2.0 cm2 MV V2 VTI: 26.0 cm LV V1 max: 118.4 cm/sec PA V2 max: 84.7 cm/sec LV V1 max P.6 mmHg ECHO/Echo Complete Interpretation Summary The study was technically difficult. Left ventricular systolic function is normal. The estimated ejection fraction is 60 %. The left atrium is mildly enlarged. Trivial mitral valve insufficiency. Trivial tricuspid valve insufficiency. Unable to estimate RV systolic pressure/pulmonary artery pressure due to techni jose alfredo difficult study. Diastolic function is indeterminate. Ordering Physician: Ashok Son Referring Physician: Lisa Combs Performed By: Dale Figueroa RCS
== END | disposition home or self-care (01) ==
LOC: CVS 12:52
PROVIDERS: PCP Internal Medicine; Visit Provider Internal Medicine Cardiovascular Disease
DX: I48.0 Paroxysmal atrial fibrillation (principal); I43 Cardiomyopathy in diseases classified elsewhere; E78.5 Hyperlipidemia, unspecified; I10 Essential (primary) hypertension
CPT/HCPCS: 93306

== ENCOUNTER → 2022-11-08 | Outpatient (CLI) | payer MEDICARE, OTHER, SELFPAY ==
--- NOTE | 2022-11-08 07:55 | MRI_ITS ---
STUDY: MR Brain WO/W Contrast 11/08/2022 3:00 PM REASON FOR EXAM: Female, 81 years old. Involuntary movements unilateral COMPARISON: None TECHNIQUE: Standardized multiplanar fat and water weighted pulse sequences were obtained. MR Brain WO/W Contrast Contrast IV 18ml Clariscan FINDINGS: There is mild cerebral atrophy with widening of the extra-axial spaces and ventricular dilatation. Normal white matter tracts of the supratentorial brain. There is mild prominence of the vermian folia, consistent with atrophy of the vermis. The cerebellar hemispheres are normal. Normal bilateral basal ganglia. Normal thalami. There is no extra-axial fluid accumulation. Normal flow voids within the major intracranial circulation suggesting patency by spin echo criteria. Normal sella turcica, pituitary gland, infundibular stalk, optic chiasm and hypothalamus. Normal tectal plate and pineal gland. Normal midbrain, nat and medulla. Normal basal cisterns. Normal bilateral temporal bones. Normal bilateral internal auditory canals. No demonstrated orbital abnormality, within the constraints of a routine brain study. Normal visualized paranasal sinuses. Normal calvarium and skull base. Normal visualized soft tissue structures. Normal visualized upper cervical spine. Aspect score 10 MRI/Brain W/WO Contrast IMPRESSION: (NOT LISTED IN ORDER OF SIGNIFICANCE) There are no acute intracranial findings. Electronically Signed: Villa Kaur MD at 15:04 EST ,
[2022-11-08] MEDS: 0.9% Saline Lock 10 ML Syringe IV (09:05)
[2022-11-08 10:00] LABS: Hemoglobin A1c 5.3 % (3.8-5.6)
== END | disposition home or self-care (01) ==
LOC: MRI 07:55
PROVIDERS: PCP Internal Medicine; Referring Provider Nurse Practitioner Family; Visit Provider Nurse Practitioner Family
DX: G25.5 Other chorea (principal); G62.9 Polyneuropathy, unspecified; R73.9 Hyperglycemia, unspecified
CPT/HCPCS: 70553; 83036; A9575; A4216

== ENCOUNTER 2023-03-09 12:17 | Outpatient (CLI) | payer MEDICARE, OTHER, SELFPAY ==
--- NOTE | 2023-03-09 12:30 | BD_ITS ---
STUDY: DUAL ENERGY X-RAY ABSORPTIOMETRY / DXA REASON FOR EXAM: Female, 82 years old. Post - Menopausal TECHNIQUE: Bone Mineral Density (BMD) measurements of lumbar spine and bilateral hips were obtained. COMPARISON: None. FINDINGS: Lumbar Spine (L1-L4): g/cm2 (1.245) / T-score (1.9) / Z-score (4.7) Findings are suggestive of normal bone density with a low fracture risk. Left Femur Total: g/cm2 (1.022) / T-score (0.7) / Z-score (2.9) Left Femoral Neck: g/cm2 (0.749) / T-score (-0.9) / Z-score (1.5) Right Femur Total: g/cm2 (0.970) / T-score (0.2) / Z-score (2.5) Right Femoral Neck: g/cm2 (0.682) / T-score (-1.5) / Z-score (0.9) BD/Dexa Bone Density Study IMPRESSION: The patient is considered osteopenic as outlined below according to World [employer] Organization (WHO) criteria with a low fracture risk. Reference Information: The T-score is the number of standard deviations above or below the standard which is normal for young adults at their peak bone mineral density. The World Health Organization (WHO) interprets the T-scores as follows: Above -1 Normal bone density Between -1 and -2.5 Osteopenia Equal to / or below -2.5 Osteoporosis As a practical clinical guideline, osteopenia may be graded as follows: Mild -1 through -1.5 Moderate -1.6 through -2.0 Severe -2.1 through -2.4 The Z-score is the number of standard deviations above or below age-matched controls. A Z-score of less than -1.5 would be considered abnormal. References: 1. NIH Osteoporosis and Related Bone Diseases www osteo.org 2. International Society for Clinical Densitometry www iscd.org 3. National Osteoporosis Foundation www nof.org Electronically Signed: Aric Barrera MD at 13:58 EDT ,
== END 2023-03-09 23:59 | disposition home or self-care (01) ==
LOC: OPBD 12:17
PROVIDERS: PCP Internal Medicine; Referring Provider Internal Medicine; Visit Provider Internal Medicine
DX: Z13.820 Encounter for screening for osteoporosis (principal); N18.32 Chronic kidney disease, stage 3b; Z78.0 Asymptomatic menopausal state; N05.9 Unspecified nephritic syndrome with unspecified morphologic changes
CPT/HCPCS: 36591; 77080; 80069; 82570; 84156; A4216